=== PATIENT | female | born 1985 | race Caucasian/White ===

== ENCOUNTER 2019-11-22 13:42 | Inpatient (IN) | payer BC, SELFPAY ==
[2019-11-22] VITALS (25 sets, daily range): BP systolic 93–140; BP diastolic 41–91; PULSE 88–133; RESP 12–26; TEMP 36.5–37.1; O2SAT 95–100
--- NOTE | 2019-11-22 14:01 | ED.GENADUL_ITS ---
Discharge Plan Disposition Condition: Good Discharge Details Chief Complaint: POST GRADUATE INTERNSHIP Admit Date/Time: 11/22/19 14:49 Admit Provider: Lawrence Tarango Attending Provider: Lawrence Tarango Primary Care Provider: Lindsey Escudero ED Provider: Haley Kerns Discharge Instructions Activity:: Activity as Tolerated Equipment/Supplies:: No Equipment Needed Diet:: As Tolerated Discharge Orders Discharge Orders: Discharge Order (Routine); Ordered 11/23/19 Ordered By: Lawrence Tarango Discharge Data Discharge Date/Time-TO BE ENTERED AT DEPARTURE: 11/22/19 15:23 Medical Decision Making Luz Garcia is a 34 y/o woman without reported history of major medical problems presenting to the emergency department with abdominal pain that began this morning. On exam patient is uncomfortable but acutely nontoxic. Generalized abdominal tenderness to palpation with guarding. Benign cardiopulmonary exam. Concern for ectopic , hemorrhagic cyst, appendicitis, other. Bedside [id number] ultrasound reveals positive free fluid in Morison's pouch. Concern for ruptured ectopic versus hemorrhagic cyst at this point. Applications Programmer Analyst contacted emergently at 2:01 regarding patient presentation, ultrasound results. Plan for peripheral IVs x2, screening labs, 2 units PRBCs ordered. Patient with good SBP. Dr. Tarango of gynecology at bedside, states he would likely take patient to the OR, patient currently hemodynamically stable, he will await hCG. He requests hold blood transfusion at this time. urine preg pos, cad detailer contacted 2:45 urine prior result relayed, suspect ruptured ectopic. Pt to go to OR. Clinical impression: Ruptured ectopic disposition: [facility] inpatient Medical Records Medical records reviewed: Yes I reviewed the patient's medical records. Lab Data Lab results reviewed: Yes I reviewed the patient's lab results. Labs: 11/22/19 14:42 Urine - Reflex from Ua Urine Culture - Pending Laboratory Tests Range/Units 11/22/19 11/22/19 11/22/19 14:00 14:10 14:10 WBC (4.4-10.8) k/cumm 12.04 H RBC (4.00-5.20) m/cumm 4.25 Hgb (12.0-15.5) g/dL 12.3 Hct (36.0-46.0) % 35.9 L MCV (80-95) fL 84.5 MCH (27.0-33.0) pg 28.9 MCHC (32.0-36.0) g/dL 34.3 RDW (11.7-14.6) % 13.6 Plt Count (130-400) x1000/uL 320 MPV (8.0-11.0) fL 9.6 Immature Gran % % 0.2 Neutrophils % 78.0 Lymphocytes % 14.1 Monocytes % 5.3 Eosinophils % 2.2 Basophils % 0.2 Absolute Neutrophils (1.2-6.7) k/cumm 9.39 H Absolute Lymphocytes (1.2-3.4) k/cumm 1.70 Absolute Monocytes (0.11-0.7) k/cumm 0.64 Absolute Eosinophils (0.0-0.7) k/cumm 0.26 Absolute Basophils (0.0-0.2) k/cumm 0.02 Sodium (136-145) mmol/L 138 Potassium (3.5-5.1) mmol/L 3.3 L Chloride (98-107) mmol/L 102 Carbon Dioxide (21.0-32.0) mmol/L 22.9 Anion Gap (3-11) mmol/L 13.1 H BUN (7-18) mg/dL 6 L Creatinine (0.55-1.02) mg/dL 0.57 Estimated GFR/1.73 m2 (mL/min/1.73m2) >= 60.00 Glucose (74-106) mg/dL 106 Calcium (8.5-10.1) mg/dL 8.3 L Total Bilirubin (0.2-1.0) mg/dL 0.2 AST (15-37) U/L 15 ALT (14-59) U/L 18 Alkaline Phosphatase (46-116) U/L 80 Total Protein (6.4-8.2) g/dL 6.8 Albumin (3.4-5.0) g/dL 3.6 Beta HCG, Quant (1-3) mIU/mL Urine Color (Yellow) Urine Clarity (Clear) Urine pH (5-8) Ur Specific [place] (1.005-1.025) Urine Protein (Negative) mg/dL Urine Ketones (Negative) mg/dL Urine Blood (Negative) Urine Nitrite (Negative) Urine Bilirubin (Negative) Urine Urobilinogen (Up TO 0.2) EU/dL Ur Leukocyte Esterase (Negative) Urine RBC (0-2) HPF Urine WBC (0-5) HPF Ur Epithelial Cells (Negative) HPF Urine Crystals (Negative) HPF Urine Bacteria (Negative) HPF Urine Casts (Negative) LPF Urine Mucus (Negative) Ur Culture Indicated? Urine Glucose (Negative) mg/dL Patient ABO/Rh O Positive Antibody Screen Negative Crossmatch See Detail Range/Units 11/22/19 11/22/19 14:10 14:42 WBC (4.4-10.8) k/cumm RBC (4.00-5.20) m/cumm Hgb (12.0-15.5) g/dL Hct (36.0-46.0) % MCV (80-95) fL MCH (27.0-33.0) pg MCHC (32.0-36.0) g/dL RDW (11.7-14.6) % Plt Count (130-400) x1000/uL MPV (8.0-11.0) fL Immature Gran % % Neutrophils % Lymphocytes % Monocytes % Eosinophils % Basophils % Absolute Neutrophils (1.2-6.7) k/cumm Absolute Lymphocytes (1.2-3.4) k/cumm Absolute Monocytes (0.11-0.7) k/cumm Absolute Eosinophils (0.0-0.7) k/cumm Absolute Basophils (0.0-0.2) k/cumm Sodium (136-145) mmol/L Potassium (3.5-5.1) mmol/L Chloride (98-107) mmol/L Carbon Dioxide (21.0-32.0) mmol/L Anion Gap (3-11) mmol/L BUN (7-18) mg/dL Creatinine (0.55-1.02) mg/dL Estimated GFR/1.73 m2 (mL/min/1.73m2) Glucose (74-106) mg/dL Calcium (8.5-10.1) mg/dL Total Bilirubin (0.2-1.0) mg/dL AST (15-37) U/L ALT (14-59) U/L Alkaline Phosphatase (46-116) U/L Total Protein (6.4-8.2) g/dL Albumin (3.4-5.0) g/dL Beta HCG, Quant (1-3) mIU/mL 6827 H Urine Color (Yellow) Yellow Urine Clarity (Clear) Clear Urine pH (5-8) 6.5 Ur Specific [place] (1.005-1.025) >= 1.030 H Urine Protein (Negative) mg/dL 30 H Urine Ketones (Negative) mg/dL Negative Urine Blood (Negative) Large H Urine Nitrite (Negative) Negative Urine Bilirubin (Negative) Negative Urine Urobilinogen (Up TO 0.2) EU/dL 0.2 Ur Leukocyte Esterase (Negative) Negative Urine RBC (0-2) HPF >50 H Urine WBC (0-5) HPF 0-2 Ur Epithelial Cells (Negative) HPF Moderate Urine Crystals (Negative) HPF Negative Urine Bacteria (Negative) HPF Moderate Urine Casts (Negative) LPF Negative Urine Mucus (Negative) Trace Ur Culture Indicated? Yes Urine Glucose (Negative) mg/dL Negative Patient ABO/Rh Antibody Screen Crossmatch HPI General Mode of arrival: EMS . Date/Time Provider Initiated Documentation: 11/22/19 13:44 . Limitations to Documentation: no limitations . Information obtained by: patient, RN notes reviewed and old records reviewed . HPI Narrative: Luz Garcia is a 34 y/o woman without reported history of major medical problems presenting to the emergency department with abdominal pain. Patient reports that she developed sudden onset right lower quadrant abdominal pain this morning. Patient reports the pain has been gradually getting worse throughout the day. She reports that she has also began to feel lightheaded. She denies any other pain, fever, shortness of breath, cough, numbness, weakness, vomiting, diarrhea. Patient reports that she was in her usual state of health yesterday. Has been eating and drinking as usual. 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 Patient reports that she has had some light spotting for the past few days, and that her period is several days overdue. Patient reports history of appendectomy. Related Data Home Medications Medication Instructions Recorded Confirmed Hair, Skin, Nails with Biotin 2 ea PO DAILY 02/02/18 11/22/19 Probiotic 1 ea PO DAILY 02/02/18 11/22/19 amitriptyline 50 mg PO HS 02/02/18 11/22/19 ascorbic acid (vitamin C) [Vitamin 1,000 mg PO DAILY 02/02/18 11/22/19 C With Yessy Hips] cholecalciferol (vitamin D3) 1,000 units PO DAILY 02/02/18 11/22/19 cyanocobalamin (vitamin B-12) 30,000 mcg IJ DIRECTED 02/02/18 11/22/19 cyanocobalamin (vitamin B-12) 5,000 mcg PO DAILY 02/02/18 11/22/19 [Vitamin B-12] folic acid 400 mcg PO DAILY 02/02/18 11/22/19 venlafaxine 150 mg PO DAILY 02/02/18 11/22/19 ferrous sulfate [Iron (ferrous 325 mg PO DAILY #90 tab 11/23/19 sulfate)] oxycodone-acetaminophen 1 - 2 tab PO Q4H PRN PRN #15 tab 11/23/19 Previous Rx's Medication Instructions Recorded ferrous sulfate [Iron (ferrous 325 mg PO DAILY #90 tab 11/23/19 sulfate)] oxycodone-acetaminophen 1 - 2 tab PO Q4H PRN PRN #15 tab 11/23/19 Allergies Allergy/AdvReac Type Severity Reaction Status Date / Time acetaminophen [From Percocet] Allergy Unverified 11/22/19 14:52 amoxicillin Allergy Unverified 11/22/19 14:52 oxycodone [From Percocet] Allergy Unverified 11/22/19 14:52 Penicillins Allergy Unverified 11/22/19 14:52 tramadol Allergy Unverified 11/22/19 14:52 trazodone Allergy Unverified 11/22/19 14:52 tree nut Allergy Unverified 11/22/19 14:52 zolpidem [From Ambien] Allergy Unverified 11/22/19 14:52 General Stated Complaint: POST GRADUATE INTERNSHIP ALDO: 3 Review of Systems Narrative: Constitutional: denies fevers Eyes: denies eye pain ENT: denies ear pain, dental pain, sore throat Cardiovascular: denies chest pain Respiratory: denies SOB, cough GI: denies omiting, diarrhea, reports abdominal pain : denies flank pain, dysuria MSK: denies back pain, neck pain, arthralgias, myalgias Skin: denies rash Neuro: denies headaches, numbness, weakness PFSH Social History Smoking/Tobacco Use Status: Unknown Do you feel safe at home: Yes Do you feel safe in your relationship?: Yes Exam Narrative Exam Narrative: Constitutional: Somewhat uncomfortable but acutely [id number], pleasant, conversing normally HENT: head atraumatic/normocephalic/normal inspection, mucous membranes moist Eyes: conjunctiva normal, sclera normal, pupils 3mm b/l Neck: no stridor, normal ROM, trachea midline Chest: normal inspection Resp: normal work of breathing, LCTAB Cardio: Borderline tachycardic rate, normal rhythm, no murmur appreciated GI: abdomen soft, generalized tenderness to palpation with guarding, non- distended Back: normal inspection, no rash Skin: warm, dry, normal color, no rash Neuro: alert, not altered, grossly non-focal, normal tone Ext: no edema Psych: normal mood, normal affect, normal behavior Course Vital Signs Vital signs: Vital Signs Temperature 36.5 C 11/22/19 13:44 Pulse 103 H 11/22/19 13:44 Respiratory Rate 18 11/22/19 13:44 Blood Pressure 140/87 11/22/19 13:44 Pulse Oximetry 100 11/22/19 13:44 Temperature 36.5 C 11/22/19 13:44 Temperature Source Skin 11/22/19 13:44 Pulse 103 H 11/22/19 13:44 Respiratory Rate 18 11/22/19 13:44 Blood Pressure 140/87 11/22/19 13:44 Pulse Oximetry 100 11/22/19 13:44 Oxygen Delivery Method Room Air 11/22/19 13:44 Oxygen Flow Rate 0 11/22/19 13:44 Lab/Test Results Lab/Test Results: Laboratory Tests Range/Units 11/22/19 13:55 Crossmatch See Detail Critical Care Time Critical Care Time Total Critical Care Time: 35 Attestation: I have spent greater than 35 minutes of critical care time with this critically ill patient, including frequent reassessments and discussions with family and consultants.
[2019-11-22 14:38] LABS: Abs Immature Grans 0.02 k/cumm (0.0-0.09); Absolute Basophil Count 0.02 k/cumm (0.0-0.2); Absolute Monocyte Count 0.64 k/cumm (0.11-0.7); Absolute Neutrophil Count 9.39 k/cumm (1.2-6.7); Basophils % 0.2; Eosinophils % 2.2; HCT 35.9 % (36.0-46.0); HGB 12.3 g/dL (12.0-15.5); Immature Grans % 0.2 %; Lymphocytes % 14.1; Mean Corp. HGB Concentration 34.3 g/dL (32.0-36.0); Mean Corpuscular Hemoglobin 28.9 pg (27.0-33.0); Mean Corpuscular Volume 84.5 fL (80-95); Mean Platelet Volume 9.6 fL (8.0-11.0); Monocytes % 5.3; Platelet Count 320 x1000/uL (130-400); RBC 4.25 m/cumm (4.00-5.20); RBC Distribution Width 13.6 % (11.7-14.6); White Blood Cell Count 12.04 k/cumm (4.4-10.8)
[2019-11-22] MEDS: Normal Saline 1,000 ML 1000 ML IV (14:39)
[2019-11-22 14:41] LABS: Absolute Eosinophil Count 0.26 k/cumm (0.0-0.7)
[2019-11-22 14:42] LABS: ALT 18 U/L (14-59); AST 15 U/L (15-37); Albumin 3.6 g/dL (3.4-5.0); Alkaline Phosphatase 80 U/L (46-116); Anion Gap 13.1 mmol/L (3-11); BUN 6 mg/dL (7-18); Bilirubin, Total 0.2 mg/dL (0.2-1.0); CO2 22.9 mmol/L (21.0-32.0); CREATININE 0.57 mg/dL (0.55-1.02); Calcium 8.3 mg/dL (8.5-10.1); Chloride 102 mmol/L (98-107); Glucose 106 mg/dL (74-106); Potassium 3.3 mmol/L (3.5-5.1); Sodium 138 mmol/L (136-145); Total Protein 6.8 g/dL (6.4-8.2)
--- NOTE | 2019-11-22 14:42 | W.GYNCONSULT ---
Date of service: 11/22/19 Time of Service: 14:42 Assessment and Plan Assessment and plan (1) Abdominal pain affecting : Status: Acute Assessment and plan: Presents to the emergency room with acute onset of pain, blood in the abdomen and up positive urine test. The quantitative hCG is pending at this point time. There is a couple possibilities, these include an ectopic I did talk about the fact that if there is a rupture tube I would do a salpingectomy. If I could do so we will do a salpingostomy and go ahead and remove the ectopic and leave the tube. We would then need to go ahead and follow serial hCGs and is always a chance that we would have to give her methotrexate if this did not reabsorb on its own. Carefully reviewed the risk of the surgery including bleeding, infection, damage of the tissue such as bowel, bladder, blood vessels, potential laparotomy incision discussed with her. This may also be a hemorrhagic cyst of the ovary is causing issues for which case we will go ahead and cauterize the cyst and remove the blood. She understands she will shoulder pain after the surgery feel she is good understanding risk of the procedure and she is been n.p.o. other than some coffee this morning. History of Present Illness History of Present Illness Chief Complaint: Patient is a 34-year-old 5 para 1 with LMP 3 weeks ago reports the, Review of Systems Constitutional Constitutional: Denies chills, Denies excessive sweating, Denies fever(s), Denies frequent falls, Denies increased appetite, Denies lethargy, Denies night sweats, Denies poor appetite, Denies stops breathing during sleep, Denies weakness, Denies weight loss and Denies other Neurologic Neurologic: Denies frequent falls and Denies weakness Endocrine Endocrine: Denies excessive sweating [facility] Social History Do you feel safe at home: Yes Do you feel safe in your relationship?: Yes Exam Const General: cooperative, healthy appearing, acute distress and anxious Nutritional Appearance: overweight Orientation: alert and oriented x3 Chest Chest: normal inspection of the chest Resp Effort & Inspection: normal respiratory effort and able to speak in complete sentences Auscultation: clear to auscultation bilaterally Cardio Rate: regular rate Rhythm: regular rhythm GI Inspection: normal to inspection and distended Palpation: guarding and tender Other: The patient definitely has cervical motion tenderness, uterus is anteverted anteflexed and very tender. Both adnexa are tender. Did do a bedside endovaginal ultrasound which shows an empty uterus with fairly thin endometrial lining right adnexa visible left adnexa not seen. There is a small amount of fluid between the liver and the kidney on the right side. Results Last Vital Signs Temp 97.7 F 11/22/19 13:44 Pulse 103 H 11/22/19 13:44 Resp 20 11/22/19 14:38 BP 140/87 11/22/19 13:44 Pulse Ox 97 11/22/19 14:38 Labs Result diagrams: 11/22/19 14:10 11/22/19 14:10 Labs: Laboratory Results - last 24 hr 11/22/19 11/22/19 14:00 14:10 WBC 12.04 H RBC 4.25 Hgb 12.3 Hct 35.9 L MCV 84.5 MCH 28.9 MCHC 34.3 RDW 13.6 Plt Count 320 MPV 9.6 Immature Gran % 0.2 Neutrophils % 78.0 Lymphocytes % 14.1 Monocytes % 5.3 Eosinophils % 2.2 Basophils % 0.2 Absolute Neutrophils 9.39 H Absolute Lymphocytes 1.70 Absolute Monocytes 0.64 Absolute Eosinophils 0.26 Absolute Basophils 0.02 Crossmatch See Detail
[2019-11-22] MEDS: fentaNYL 100 MCG/2 ML VIAL 50 MCG IVP (14:49)
[2019-11-22 15:07] LABS: HCG Quant, Pregnancy 6827 mIU/mL (1-3)
[2019-11-22 15:22] LABS: Bilirubin Negative (Negative); Blood Large (Negative); Clarity Clear (Clear); Glucose Negative (Negative); Ketones Negative (Negative); Leukocyte Esterase Negative (Negative); Nitrite Negative (Negative); Specific Gravity >= 1.030 (1.005-1.025); Urobilinogen 0.2 EU/dL (Up TO 0.2); pH 6.5 (5-8)
[2019-11-22 15:24] LABS: Bacteria Moderate HPF (Negative); Crystals Negative HPF (Negative); Epithelial Cells Moderate HPF (Negative); RBC >50 HPF (0-2); WBC 0-2 HPF (0-5)
[2019-11-22 15:25] LABS: C & S Indicated? Yes; Casts Negative LPF (Negative); Mucus Trace (Negative)
[2019-11-22] MEDS: ELECTROLYTE-R SOLUTION 1,000 ML 100 ML IV (15:30)
[2019-11-22] MEDS: Lactated Ringers 1,000 ML 100 ML IV (15:30)
--- NOTE | 2019-11-22 16:23 | FALL_PTH ---
PATIENT: Luz Garcia LOC: U#:[id number] AGE/SX: 34/F ROOM: 231 RE11/22/[address]: Lawrence Tarango MD : [id number] BED: A DIS: 11/23/2019 SPEC #: [id number] RECD: 11/22/19 18:52 STATUS: PIPE REQ #: [id number] SINGH: 11/22/19 16:[address]: Lawrence Tarango DEPT: Surgical Specimen RECD BY: María Elena Naidu ENTERED: 11/22/19 18:53 SP TYPE: Fall OTHR DR: Lindsey Escudero Tissues: 1 - FALLOPIAN TUBE (ECTOPIC) Procedures: GROSS AND MICRO LEVEL 4 Comments: [id number]
[2019-11-22] MEDS: fentaNYL 100 MCG/2 ML VIAL IVP (17:32)
[2019-11-22] MEDS: Lactated Ringers 1,000 ML 500 ML IV (17:37)
[2019-11-22] MEDS: Lactated Ringers 1,000 ML 125 ML IV (18:04)
[2019-11-22 19:00] LABS: HCT 29.4 % (36.0-46.0); HGB 9.8 g/dL (12.0-15.5); Mean Corp. HGB Concentration 33.3 g/dL (32.0-36.0); Mean Corpuscular Hemoglobin 28.5 pg (27.0-33.0); Mean Corpuscular Volume 85.5 fL (80-95); Mean Platelet Volume 9.3 fL (8.0-11.0); Platelet Count 278 x1000/uL (130-400); RBC 3.44 m/cumm (4.00-5.20); RBC Distribution Width 13.6 % (11.7-14.6)
[2019-11-22] MEDS: Amitriptyline 50 MG TAB PO (20:08)
[2019-11-22] MEDS: oxyCODONE 5 mg/Acetaminophen 325 mg TAB PO (20:08)
[2019-11-22] MEDS: Docusate Sodium 100 MG CAP PO (20:08)
[2019-11-22] MEDS: Nicotine 21 MG/24 HR PATCH TD (21:00)
[2019-11-22] MEDS: Ketorolac 30 MG/ML VIAL IVP (22:53)
[2019-11-23] MEDS: oxyCODONE 5 mg/Acetaminophen 325 mg TAB PO ×3 (00:11→10:35)
[2019-11-23 00:12] VITALS: BP 103/65; PULSE 89; RESP 18; TEMP 36.5; O2SAT 96
[2019-11-23] MEDS: Lactated Ringers 1,000 ML 125 ML IV ×2 (00:53→08:22)
[2019-11-23 04:20] VITALS: BP 101/66; PULSE 88; RESP 18; TEMP 37; O2SAT 98
--- NOTE | 2019-11-23 05:53 | ROE_ITS ---
REPORT OF OPERATIVE PROCEDURE DATE OF PROCEDURE November 22, 2019 PREOPERATIVE DIAGNOSIS Possible ectopic . POSTOPERATIVE DIAGNOSIS Right ruptured ectopic . SURGEON Lawrence Tarango M.D. ANESTHESIA General. DESCRIPTION OF PROCEDURE The patient was brought to the OR. She was placed in the dorsal lithotomy position. She was prepped and draped in the usual fashion. Timeout was done, everybody agreed to the procedure. She received 2 grams of Ancef. An infraumbilical incision was made, introducing the 5-mm OptiView. Accessory ports were placed, placed 5-mm ports lateral to the rectus muscle on either side and placed a 10-mm port in the suprapubic area. Inspection revealed a normal uterus, left fallopian tube and ovaries. There was a large amount of blood clot in the cul-de-sac and covering the right fallopian tube and right ovary. The blood clot was then suctioned out, which revealed an actively bleeding, ruptured ectopic on the right side. I did go ahead and do a salpingectomy coming across the mesosalpinx and coming across the utero-ovarian ligament with the LigaSure. Also came across the proximal portion of the tube, was able to free the ectopic up. This was then placed in the 10-mm specimen bag and was removed without any difficulty. There were adhesions between the omentum, the anterior abdominal wall and the umbilical area, and these were taken down using the LigaSure. I went ahead and placed the patient in reverse Trendelenburg and ended up draining out a total of 800 cc of blood that was in the abdomen, especially in the right upper quadrant and in the cul-de-sac. Once the blood was removed, there was no active bleeding, Instruments removed and gas expelled. The incision was closed with #4-0 Monocryl without any difficulty. No complications noted. The patient was brought to the Recovery Room in excellent condition.
[2019-11-23 07:45] VITALS: BP 117/71; PULSE 104; RESP 20; TEMP 37.5; O2SAT 99
[2019-11-23] MEDS: Docusate Sodium 100 MG CAP PO (08:18)
[2019-11-23] MEDS: Normal Saline Flush 10 ML SYR IVP (08:18)
[2019-11-23] MEDS: Ketorolac 30 MG/ML VIAL IVP (08:19)
--- NOTE | 2019-11-23 08:52 | PDOC.CMIN ---
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 CODE STATUS:: Full Code
--- NOTE | 2019-11-23 09:05 | W.PM.DS.N ---
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 ECTOPIC Admit Date/Time: 11/22/19 14:49 Admit Provider: Lawrence Tarango Attending Provider: Lawrence Tarango Primary Care Provider: Lindsey Escudero ED Provider: Haley Kerns Home Meds and New Rx's Prescriptions: No Action venlafaxine 75 MG tablet 150 mg PO DAILY RF: 0 ascorbic acid (vitamin C) [Vitamin C With Yessy Hips] 1,000 MG tablet extended release 1,000 mg PO DAILY RF: 0 cyanocobalamin (vitamin B-12) [Vitamin B-12] 1,000 MCG tablet 5,000 mcg PO DAILY RF: 0 folic acid 400 MCG tablet 400 mcg PO DAILY RF: 0 amitriptyline 25 MG tablet 50 mg PO HS RF: 0 cyanocobalamin (vitamin B-12) 30,000 MCG/30 ML solution 30,000 mcg IJ DIRECTED RF: 0 cholecalciferol (vitamin D3) 1,000 UNITS tablet 1,000 units PO DAILY RF: 0 Probiotic 1 EACH capsule 1 ea PO DAILY RF: 0 Hair, Skin, Nails with Biotin 1 EACH tablet,chewable 2 ea PO DAILY RF: 0 DS: Summary Summary Time spent discussing smoking cessation with patient: 3 to 10 minutes Status at Discharge Functional status at discharge: independent ambulation Overall status at discharge: patient is back to baseline Mental Status: mental status grossly normal Speech and Movement: speech and movement normal Mood: congruent mood Affect: normal affect Time Spent with Patient providing and/or coordinating discharge services: Less than 30 minutes Specific discharge activities: Carefully reviewed discharge instructions, will send her home on iron and Percocet. She understands of nothing in the vagina for the next week, and no lifting more than 10 to 15 pounds for the next week. Any fevers or chills she will contact me. Quality: VTE Deep Vein Thrombosis/Pulmonary Embolism Present on Admission: No Exam Narrative Exam Narrative: The patient is alert, no acute distress. Abdomen is soft nontender no hepatosplenomegaly. Incisions are healing well without any evidence of drainage, erythema, or induration. She has been ambulating throughout the siddiqi, tolerating a general diet and has good urine output. Psych Mental Status: mental status grossly normal Speech and Movement: speech and movement normal Mood: congruent mood Affect: normal affect DS: Data Vitals/I&O Vitals and I&O: Vital Signs Temperature 99.5 F 11/23/19 07:45 Temperature Source Tympanic 11/23/19 07:45 Pulse 104 H 11/23/19 07:45 Pulse Rhythm Regular 11/23/19 08:36 Pulse 109 H 11/22/19 15:10 Respiratory Rate 20 11/23/19 07:45 Respiratory Effort Non-Labored 11/23/19 08:36 Respiratory Depth Normal 11/23/19 08:36 Respiratory Pattern Normal 11/23/19 08:36 Blood Pressure 117/71 11/23/19 07:45 Blood Pressure Mean 98 11/22/19 15:01 Pulse Oximetry 99 11/23/19 07:45 Respiratory End-tidal CO2 39 11/22/19 17:04 Oxygen Delivery Method Room Air 11/23/19 07:45 Oxygen Flow Rate 0 11/23/19 07:45 Pain Level 5 11/23/19 08:19 Intake & Output 11/22/19 11/22/19 11/23/19 11:59 23:59 11:59 Intake Total 2900 / 2900 1787.500 / 1787.500 Output Total 1350 / 1350 1150 / 1150 Balance 1550 / 1550 637.500 / 637.500 Weight 140 lb 0.002 oz Intake: IV 2900 / 2900 1787.500 / 1787.500 Output: Urine 750 / 750 1150 / 1150 Estimated Blood Loss 600 / 600 Other: Urine Color Pale Yellow Yellow Urine Appearance Clear Clear Emesis Description None Voiding Methods Toilet Data Completed and Pending Labs on day of discharge: Labs from last 24 hours 11/22/19 11/22/19 11/22/19 18:45 14:42 14:10 WBC 10.10 RBC 3.44 L Hgb 9.8 L D Hct 29.4 L MCV 85.5 MCH 28.5 MCHC 33.3 RDW 13.6 Plt Count 278 MPV 9.3 Immature Gran % Neutrophils % Lymphocytes % Monocytes % Eosinophils % Basophils % Absolute Neutrophils Absolute Lymphocytes Absolute Monocytes Absolute Eosinophils Absolute Basophils Sodium Potassium Chloride Carbon Dioxide Anion Gap BUN Creatinine Estimated GFR/1.73 m2 Glucose Calcium Total Bilirubin AST ALT Alkaline Phosphatase Total Protein Albumin Beta HCG, Quant 6827 H Urine Color Yellow Urine Clarity Clear Urine pH 6.[address] [place] >= 1.030 H Urine Protein 30 H Urine Ketones Negative Urine Blood Large H Urine Nitrite Negative Urine Bilirubin Negative Urine Urobilinogen 0.2 Ur Leukocyte Esterase Negative Urine RBC >50 H Urine WBC 0-2 Ur Epithelial Cells Moderate Urine Crystals Negative Urine Bacteria Moderate Urine Casts Negative Urine Mucus Trace Ur Culture Indicated? Yes Urine Glucose Negative Patient ABO/Rh Antibody Screen Crossmatch 11/22/19 11/22/19 11/22/19 14:10 14:10 14:00 WBC 12.04 H RBC 4.25 Hgb 12.3 Hct 35.9 L MCV 84.5 MCH 28.9 MCHC 34.3 RDW 13.6 Plt Count 320 MPV 9.6 Immature Gran % 0.2 Neutrophils % 78.0 Lymphocytes % 14.1 Monocytes % 5.3 Eosinophils % 2.2 Basophils % 0.2 Absolute Neutrophils 9.39 H Absolute Lymphocytes 1.70 Absolute Monocytes 0.64 Absolute Eosinophils 0.26 Absolute Basophils 0.02 Sodium 138 Potassium 3.3 L Chloride 102 Carbon Dioxide 22.9 Anion Gap 13.1 H BUN 6 L Creatinine 0.57 Estimated GFR/1.73 m2 >= 60.00 Glucose 106 Calcium 8.3 L Total Bilirubin 0.2 AST 15 ALT 18 Alkaline Phosphatase 80 Total Protein 6.8 Albumin 3.6 Beta HCG, Quant Urine Color Urine Clarity Urine pH Ur Specific [place] Urine Protein Urine Ketones Urine Blood Urine Nitrite Urine Bilirubin Urine Urobilinogen Ur Leukocyte Esterase Urine RBC Urine WBC Ur Epithelial Cells Urine Crystals Urine Bacteria Urine Casts Urine Mucus Ur Culture Indicated? Urine Glucose Patient ABO/Rh O Positive Antibody Screen Negative Crossmatch See Detail 11/22/19 14:42 Urine - Reflex from Urine Culture - Pending Preliminary micro results at discharge 11/22/19 14:42 Urine Culture - Pending Urine - Reflex from [facility] Social History Smoking/Tobacco Use Status: Unknown Do you feel safe at home: Yes Do you feel safe in your relationship?: Yes
--- NOTE | 2019-11-23 09:14 | W.PM.DS.N ---
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 Had uneventful postop recovery will be discharged home today. Home Meds and New Rx's Prescriptions: New oxycodone-acetaminophen 5-325 mg Tablet 1 - 2 tab PO Q4H PRN PRNQty: 15 RF: 0 ferrous sulfate [Iron (ferrous sulfate)] 325 mg (65 mg iron) tablet 325 mg PO DAILY Qty: 90 RF: 0 Continued venlafaxine 75 MG tablet 150 mg PO DAILY RF: 0 ascorbic acid (vitamin C) [Vitamin C With Yessy Hips] 1,000 MG tablet extended release 1,000 mg PO DAILY RF: 0 cyanocobalamin (vitamin B-12) [Vitamin B-12] 1,000 MCG tablet 5,000 mcg PO DAILY RF: 0 folic acid 400 MCG tablet 400 mcg PO DAILY RF: 0 amitriptyline 25 MG tablet 50 mg PO HS RF: 0 cyanocobalamin (vitamin B-12) 30,000 MCG/30 ML solution 30,000 mcg IJ DIRECTED RF: 0 cholecalciferol (vitamin D3) 1,000 UNITS tablet 1,000 units PO DAILY RF: 0 Probiotic 1 EACH capsule 1 ea PO DAILY RF: 0 Hair, Skin, Nails with Biotin 1 EACH tablet,chewable 2 ea PO DAILY RF: 0 Discharge Instructions Instructions: Salpingectomy (DC) Stand Alone Forms: Nursing Discharge Form Activity:: Activity as Tolerated Equipment/Supplies:: No Equipment Needed Diet:: As Tolerated Discharge Orders Discharge Orders: Discharge Order (Routine); Ordered 11/23/19 Ordered By: Lawrence Tarango DS: Summary Status at Discharge Functional status at discharge: independent ambulation Overall status at discharge: patient is back to baseline Mental Status: mental status grossly normal Speech and Movement: speech and movement normal Mood: congruent mood Affect: normal affect Quality: VTE Deep Vein Thrombosis/Pulmonary Embolism Present on Admission: No Exam Psych Mental Status: mental status grossly normal Speech and Movement: speech and movement normal Mood: congruent mood Affect: normal affect DS: Data Vitals/I&O Vitals and I&O: Vital Signs Temperature 99.5 F 11/23/19 07:45 Temperature Source Tympanic 11/23/19 07:45 Pulse 104 H 11/23/19 07:45 Pulse Rhythm Regular 11/23/19 08:36 Pulse 109 H 11/22/19 15:10 Respiratory Rate 20 11/23/19 07:45 Respiratory Effort Non-Labored 11/23/19 08:36 Respiratory Depth Normal 11/23/19 08:36 Respiratory Pattern Normal 11/23/19 08:36 Blood Pressure 117/71 11/23/19 07:45 Blood Pressure Mean 98 11/22/19 15:01 Pulse Oximetry 99 11/23/19 07:45 Respiratory End-tidal CO2 39 11/22/19 17:04 Oxygen Delivery Method Room Air 11/23/19 07:45 Oxygen Flow Rate 0 11/23/19 07:45 Pain Level 5 11/23/19 08:19 Intake & Output 11/22/19 11/22/19 11/23/19 11:59 23:59 11:59 Intake Total 2900 / 2900 1787.500 / 1787.500 Output Total 1350 / 1350 1150 / 1150 Balance 1550 / 1550 637.500 / 637.500 Weight 140 lb 0.002 oz Intake: IV 2900 / 2900 1787.500 / 1787.500 Output: Urine 750 / 750 1150 / 1150 Estimated Blood Loss 600 / 600 Other: Urine Color Pale Yellow Yellow Urine Appearance Clear Clear Emesis Description None Voiding Methods Toilet Data Completed and Pending Labs on day of discharge: Labs from last 24 hours 11/22/19 11/22/19 11/22/19 18:45 14:42 14:10 WBC 10.10 RBC 3.44 L Hgb 9.8 L D Hct 29.4 L MCV 85.5 MCH 28.5 MCHC 33.3 RDW 13.6 Plt Count 278 MPV 9.3 Immature Gran % Neutrophils % Lymphocytes % Monocytes % Eosinophils % Basophils % Absolute Neutrophils Absolute Lymphocytes Absolute Monocytes Absolute Eosinophils Absolute Basophils Sodium Potassium Chloride Carbon Dioxide Anion Gap BUN Creatinine Estimated GFR/1.73 m2 Glucose Calcium Total Bilirubin AST ALT Alkaline Phosphatase Total Protein Albumin Beta HCG, Quant 6827 H Urine Color Yellow Urine Clarity Clear Urine pH 6.5 Ur Specific [place] >= 1.030 H Urine Protein 30 H Urine Ketones Negative Urine Blood Large H Urine Nitrite Negative Urine Bilirubin Negative Urine Urobilinogen 0.2 Ur Leukocyte Esterase Negative Urine RBC >50 H Urine WBC 0-2 Ur Epithelial Cells Moderate Urine Crystals Negative Urine Bacteria Moderate Urine Casts Negative Urine Mucus Trace Ur Culture Indicated? Yes Urine Glucose Negative Patient ABO/Rh Antibody Screen Crossmatch 11/22/19 11/22/19 11/22/19 14:10 14:10 14:00 WBC 12.04 H RBC 4.25 Hgb 12.3 Hct 35.9 L MCV 84.5 MCH 28.9 MCHC 34.3 RDW 13.6 Plt Count 320 MPV 9.6 Immature Gran % 0.2 Neutrophils % 78.0 Lymphocytes % 14.1 Monocytes % 5.3 Eosinophils % 2.2 Basophils % 0.2 Absolute Neutrophils 9.39 H Absolute Lymphocytes 1.70 Absolute Monocytes 0.64 Absolute Eosinophils 0.26 Absolute Basophils 0.02 Sodium 138 Potassium 3.3 L Chloride 102 Carbon Dioxide 22.9 Anion Gap 13.1 H BUN 6 L Creatinine 0.57 Estimated GFR/1.73 m2 >= 60.00 Glucose 106 Calcium 8.3 L Total Bilirubin 0.2 AST 15 ALT 18 Alkaline Phosphatase 80 Total Protein 6.8 Albumin 3.6 Beta HCG, Quant Urine Color Urine Clarity Urine pH Ur Specific [place] Urine Protein Urine Ketones Urine Blood Urine Nitrite Urine Bilirubin Urine Urobilinogen Ur Leukocyte Esterase Urine RBC Urine WBC Ur Epithelial Cells Urine Crystals Urine Bacteria Urine Casts Urine Mucus Ur Culture Indicated? Urine Glucose Patient ABO/Rh O Positive Antibody Screen Negative Crossmatch See Detail 11/22/19 14:42 Urine - Reflex from Urine Culture - Pending Preliminary micro results at discharge 11/22/19 14:42 Urine Culture - Pending Urine - Reflex from [facility] Social History Smoking/Tobacco Use Status: Unknown Do you feel safe at home: Yes Do you feel safe in your relationship?: Yes
== END 2019-11-23 10:38 | disposition home or self-care (01) | DRG 819 ==
LOC: ER 17:56 → SUR 17:56 → MS 17:58
PROVIDERS: Admitting Provider Obstetrics & Gynecology; Emergency Provider Student in an Organized Health Care Education/Training Program; PCP Nurse Practitioner Family; Visit Provider Obstetrics & Gynecology
PROC: 10T24ZZ Resection of Products of Conception, Ectopic, Percutaneous Endoscopic Approach (ICD-10-PCS; CPT 58661; principal; 2019-11-22 15:15)
DX: O00.101 Right tubal pregnancy without intrauterine pregnancy (principal); F17.210 Nicotine dependence, cigarettes, uncomplicated
CPT/HCPCS: 59120; 36415; 80053; 81025; 85027; 86850; 86900; 86901; 86920; 88305; 96361; 96374; 99238; 99253; 99285; 81003; 81015; 84702; 85025; 87086; J0131; J0690; J1100; J1885; J2001; J2250; J2405; J2704; J3010

== ENCOUNTER 2019-11-30 13:40 | Outpatient (CLI) | payer BC, SELFPAY ==
[2019-11-30 14:03] LABS: HCT 35.7 % (36.0-46.0); HGB 12.2 g/dL (12.0-15.5); Mean Corp. HGB Concentration 34.2 g/dL (32.0-36.0); Mean Corpuscular Hemoglobin 29.4 pg (27.0-33.0); Mean Platelet Volume 8.9 fL (8.0-11.0); Platelet Count 492 x1000/uL (130-400); RBC 4.15 m/cumm (4.00-5.20); RBC Distribution Width 14.3 % (11.7-14.6); White Blood Cell Count 6.79 k/cumm (4.4-10.8)
[2019-11-30 15:18] LABS: HCG Quant, Pregnancy 124 mIU/mL (1-3); TSH (W/Ref FT4) 1.58 uIU/mL (0.36-3.74)
== END 2019-11-30 14:00 ==
PROVIDERS: PCP Nurse Practitioner Family; Visit Provider Obstetrics & Gynecology Gynecology
DX: Z87.59 Personal history of other complications of pregnancy, childbirth and the puerperium (principal)
CPT/HCPCS: 36415; 85027; 84443; 84702

== ENCOUNTER 2024-10-20 11:24 | Emergency (ER) | payer OTHER, SELFPAY ==
[2024-10-20 11:27] VITALS: BP 143/61; PULSE 113; RESP 18; TEMP 36.6; O2SAT 97
[2024-10-20 11:34] VITALS: BP 143/61; PULSE 113; RESP 18; TEMP 36.6; O2SAT 97
[2024-10-20 11:35] VITALS: RESP 18
--- OUTSIDE RECORDS SUMMARY | 2024-10-20 11:45 | XMS_ITS | Continuity of Care Document ---
Author Organization [facility] Address [address] [place] [id number] Care Team Providers Care Courier Driver Name Role Phone FLORENTIN MANZANARES APRN Primary Care Physician Encounter [facility] FIN NBR [id number] Date(s): 08/28/24 - 08/28/[address] [address] [place] Encounter Diagnosis Transient vision disturbance, right(Discharge Diagnosis) - 08/28/24 Chronic headache(Discharge Diagnosis) - 08/28/24 Other chronic pain(Discharge Diagnosis) - 08/28/24 Generalized anxiety disorder with panic attacks(Discharge Diagnosis) - 08/28/24 Panic disorder [episodic paroxysmal anxiety](Discharge Diagnosis) - 08/28/24 Discharge Disposition: Home f/u External Provider Attending Physician: Fareed Diaz DO Admitting Physician: Fareed Diaz DO Allergies, Adverse Reactions, Alerts Substance Criticality Severity Reaction Reaction Severity Status clindamycin Unable to assess criticality Unknown Anaphylaxis Vomiting Active penicillins High criticality Severe A ctive Zolpidem Tartrate 1 Unable to assess criticality Unknown Parasomnia Active traZODone High criticality Severe Act keke traMADol High criticality Severe Act keke 1sleep eating, sleep posturing Assessment and Plan Extracted from: Title:ED Provider Note Author:Fareed Diaz DO Date:08/28/24 Assessment/Plan 1.??Transient vision disturbance, right??H53.9 2.??Chronic headache??R51.9 3.??Generalized anxiety disorder with panic attacks??F41.1 Other chronic pain??G89.29 Panic disorder [episodic paroxysmal anxiety]??F41.0 Orders: Discharge Patient, 08/28/24 13:22:00 EST, Home Independently Peripheral IV Insertion, 08/28/24 11:55:00 EST Vital Signs, 08/28/24 11:55:00 EST, Once, Stop date 08/28/24 11:55:00 EST, Vital signs per ED Nursing Standard of Care Patient Education General Headache Without Cause Follow Up With When Contact Information EVELYN FELDER MD, STEFAN VALERA [address] [place] [address]- ?? Additional Instructions: Thank you for allowing us to evaluate you in the emergency department today.?? You presented to the emergency department with headache.?? Fortunately your workup in the emergency department was unremarkable and reassuring.?? Here are some instructions to follow-up on emergency department discharge: ?? 1.?? Medications. NSAIDs such as ibuprofen help decrease swelling, pain and if present fever.?? You??may take 800 mg every 6 hours but understand you should take this with food as it can cause GI bleeding or kidney problems in certain populations of people.?? Tylenol (acetaminophen) 1000 mg every 4 hours not to exceed 4000 mg in 24 hours. ?? 2.?? Alternative measures.?? Apply heat or ice on the headache area.?? For an ice pack you can also put crushed ice in a plastic bag and cover the bag with a towel before you apply to your skin.?? Ice and heat both help decrease pain, and heat also helps decrease muscle spasms.?? Apply heat for 20 to 30 minutes every 2 hours.?? Apply ice for 15 to 20 minutes every hour.?? Apply heat or ice for as long as for many days for relief that you deem necessary.?? Relax your muscles by lying in a comfortable position and closing her eyes.?? Relax your muscles slowly and cautiously.?? Starting her toes and work all the way up your body.?? There are iPhone applications that can help you with this type of meditation. ?? 3.?? Preventing an acute headache.?? Avoid anything that can trigger an acute headache.?? This includes smoking, alcohol.?? Exercise can reduce tension and help with headache pain.?? Aim for 30 minutes of physical activity on most days of the week.?? Eat a variety of healthy foods including fruits, vegetables, low-fat dairy products, lean meats, fish, whole grains, cooked beans. ?? 4.?? Follow-up.?? Keep your appointment as scheduled with Dr. Stefan Child.??Return to the emergency department earlier if you have continued severe pain, focal numbness/weakness in 1 side of your face or body or if you are forgetful/confused or having trouble speaking. ? Future Scheduled Tests Radiology* MG Mammo Screening Bilateral 06/30/24 Medications amitriptyline 25 mg oral tablet 0 Refill(s) Start Date: 07/29/23 Status: Ordered azithromycin 250 mg oral tablet 0 Refill(s) Start Date: 07/29/23 Status: Ordered cephalexin 500 mg oral capsule 0 Refill(s) Start Date: 07/29/23 Status: Ordered citalopram 40 mg oral tablet 40 mg = 1 tab, Oral, Daily, # 30 tab, 0 Refill(s) Start Date: 07/29/23 Status: Ordered erythromycin 0.5% ophthalmic ointment 0 Refill(s) Start Date: 07/29/23 Status: Ordered ketorolac 10 mg oral tablet 10 mg = 1 tab, Oral, every 6 hr, PRN as needed for pain, not to exceed 40 mg/day and 5 days duration for all dose forms, # 12 cap, 0 Refill(s), Pharmacy: [facility], 162, cm, 11/12/23 8:16:00 EST, Height, 69, kg, 11/12/23 8:19:00 EST, Weight Dosing Start Date: 11/12/23 Status: Ordered neomycin/polymyxin B/dexamethasone 3.5 mg-10,000 units-1 mg/mL ophthalmic suspension 1 drops, Eye-Both, every 4 hr, # 5 mL, 0 Refill(s) Start Date: 07/29/23 Status: Ordered ondansetron 4 mg oral tablet, disintegrating 4 mg = 1 tab, Oral, every 6 hr, PRN as needed for nausea/vomiting, # 16 tab, 0 Refill(s), Pharmacy:[facility], 162, cm, 11/12/23 8:16:00 EST, Height, 69, kg, 11/12/23 8:19:00 EST, WeightDosing Start Date: 11/12/23 Status: Ordered predniSONE 20 mg oral tablet 0 Refill(s) Start Date: 07/29/23 Status: Ordered Problem List Condition Confirmation Course Effective Dates Status Health St atus Informant Alopecia areata Confirmed Active Anorexia nervosa Confirmed Active Celiac sprue Confirmed Active DJD (degenerative joint disease), cervical Confirmed Active Headache, common migraine, with status migrainosus Confirmed Active Tobacco use Confirmed Active Major depressive disorder, single episode, mild Confirmed Active Asthma, mild persistent Confirmed Active Panic attack Confirmed Active Peripheral neuropathy Confirmed Active Pernicious anemia Confirmed Active Pica Confirmed Active Poliosis Confirmed Active Spinal stenosis of cervical region Confirmed Active Results Laboratory List Name Date CBC w/ Diff 08/28/24 Comprehensive Metabolic Panel 08/28/24 Test Serum Qual 08/28/24 Sedimentation Rate (ESR) (ESR) 08/28/24 Drug Screen Urine 08/28/24 Urinalysis with Micro if Indicated and C ulture if Indicated 08/28/24 Automated Diff 08/28/24 Most recent to oldest [Reference Range]: 1 Estimated Creatinine Clearance 142.49 mL /min 1 (08/28/24 1:08 PM) WBC [4.8-10.8 K/mcL] 5.9 K/mcL (08/28/24 12:38 PM) RBC [4.20-5.40 Million/mcL] 4.82 Million /mcL (08/28/24 12:38 PM) Neutro Auto [42.2-75.2 %] 56.4 % (08/28/24 12:38 PM) Lymph Auto [20.5-51.1 %] 28.9 % (08/28/24 12:38 PM) Ripley Auto [1.7-9.3 %] 8.7 % (08/28/24 12:38 PM) Basophil Auto [0.0-0.8 %] 1.5 % *HI* (08/28/24 12:38 PM) BUN [7-25 mg/dL] 6 mg/dL *LOW* (08/28/24 12:38 PM) U Amph Scrn [Negative] Negative 2 (08/28/24 12:23 PM) UA Color [Yellow] Yellow (08/28/24: PM) Glucose Level [70-109 mg/dL] 91 mg/dL (08/28/24 12:38 PM) Potassium Level [3.5-5.1 mmol/L] 4.0 mmo l/L (08/28/24 12:38 PM) Baso Absolute [0.0-0.2 K/mcL] 0.1 K/mcL (08/28/24 12:38 PM) U Benzodia Scrn [Negative] Negative (08/28/24: PM) MCV [81.0-99.0 fL] 89.4 fL (08/28/24 12:38 PM) UA Urobilinogen [0.2] 0.2 (08/28/24: PM) UA Bili [Negative] Negative (08/28/24 12: PM) UA Ketones [Negative] Negative (08/28/24 12:23 PM) AST [13-39 IntlUnit/L] 13 IntlUnit/L (08/28/24:38 PM) ALT [7-52 IntlUnit/L] 10 IntlUnit/L (08/28/24 12:38 PM) MCHC [32.0-37.0 g/dL] 35.8 g/dL (08/28/24 12:38 PM) Osmolality [275-295 mOsm/kg] 269 mOsm/kg *LOW* (08/28/24 12:38 PM) Sodium Level [136-145 mmol/L] 136 mmol/L (08/28/24 12:38 PM) UA Leuk Est [Negative] Negative (08/28/24: PM) Lymph Absolute [1.2-3.4 K/mcL] 1.7 K/mcL (08/28/24:38 PM) UA Nitrite [Negative] Negative (08/28/24: PM) UA Glucose [Negative] Negative (08/28/24: PM) Hct [37.0-47.0 %] 43.0 % (08/28/24 12:38 PM) U Cocaine Scrn [Negative] Negative (08/28/24: PM) Calcium Level [8.6-10.3 mg/dL] 9.0 mg/dL (08/28/24 12:38 PM) Ripley Absolute [0.1-0.6 K/mcL] 0.5 K/mcL (08/28/24:38 PM) Albumin Level [3.5-5.7 g/dL] 4.3 g/dL (08/28/24 12:38 PM) Protein Total [6.4-8.9 g/dL] 7.5 g/dL (08/28/24:38 PM) UA Protein [Negative] Negative (08/28/24:23 PM) MCH [27.0-31.0 pg] 32.0 pg *HI* (08/28/2438 PM) Neutro Absolute [1.4-6.5 K/mcL] 3.3 K/mc L (08/28/24:38 PM) Bilirubin Total [0.3-1.0 mg/dL] 0.5 mg/d L (08/28/24:38 PM) Hgb [12.0-16.0 g/dL] 15.4 g/dL (08/28/24:38 PM) Alk Phos [34-104 IntlUnit/L] 76 IntlUnit /L (08/28/24:38 PM) UA Blood [Negative] Negative (08/28/24: PM) MPV [7.4-10.4 fL] 7.3 fL *LOW* (08/28/24:38 PM) UA Spec Grav [1.001-1.030] 1.010 (08/28/24: PM) Platelets [130-400 K/mcL] 336 K/mcL (08/28/24:38 PM) CO2 [21-31 mmol/L] 23 mmol/L (08/28/24:38 PM) Eos Absolute [0.0-0.2 K/mcL] 0.3 K/mcL *HI* (08/28/24 PM) U Renetta Scrn [Negative] Negative (08/28/24: PM) UA pH [5.00-9.00] 7.00 (08/28/24: PM) U Opiate Scrn [Negative] Negative (08/28/24 PM) UA Appear [Clear] Clear (08/28/24 12:23 PM) Chloride Level [98-107 mmol/L] 106 mmol/ L (08/28/24 12:38 PM) U Oxy Scrn [Negative] Negative (08/28/24 12:23 PM) U PCP Scrn [Negative] Negative (08/28/24 12:23 PM) RDW-CV [11.5-14.5 %] 13.3 % (08/28/24 12:38 PM) A/G Ratio [1.0-2.5 g/dL] 1.3 g/dL (08/28/24 12:38 PM) BUN/Creat Ratio [8.0-20.0] 10.0 (08/28/24 12:38 PM) Globulin [2.3-3.5 g/dL] 3.2 g/dL (08/28/24 12:38 PM) U THC Scr [Negative] Positive *ABN* (08/28/24 12:23 PM) U Methadone Scr [Negative] Negative (08/28/24 12:23 PM) hCG Qual Serum [Negative] Negative (08/28/24 12:38 PM) Slide Review Not Indicated (08/28/24 12:38 PM) Urine Srce Clean Catch (08/28/24 12:23 PM) U Buprenorph Scr [Negative] Negative (08/28/24 12:23 PM) U mAMP Scr [Negative] Negative (08/28/24 12:23 PM) U TCA Scr [Negative] Positive *ABN* (08/28/24 12:23 PM) Creatinine Level [0.60-1.20 mg/dL] 0.60 mg/dL (08/28/24 12:38 PM) Anion Gap [3.0-12.0] 7.0 (08/28/24 12:38 PM) Eos, Auto [0.00-3.00 %] 4.50 % *HI* (08/28/24 12:38 PM) eGFR CKD-EPI [>=60 mL/min/1.73 m2] 118 m L/min/1.73 m2 (08/28/24 12:38 PM) U Fentanyl Scr [Negative] Negative (08/28/24 12:23 PM) ESR, Westergren [0-20 mm/hr] 17 mm/hr (08/28/24 12:38 PM) 1Result Comment: Calculated using method: Cockroft-Gault (Actual Weight) 2Interpretive Data: Interpretive Data applies to all urine drug screen testing performed. This test only provides screening test results; all positive results are unconfirmed. A more specific alternate chemical method must be used to obtain a confirmed and analytical result.?? Gas Chromatography/Mass Spectrometry (GC/MS) is the preferred confirmatory method. These test results are to be used for medical treatment only.?? Unconfirmed screening results must not be used for non-medical purposes. PLEASE CONTACT THE LABORATORY IF YOU WISH TO SEND FOR CONFIRMATORY (GC/MS) TESTING BASED UPON SCREENING RESULTS Cutoff Concentrations: AMP ? Amphetamine ? 500 ng/mL BAR? Barbiturates?200 ng/mL BZO ? Benzodiazepines? 150 ng/mL BUP ? Buprenorphine? 10 ng/mL AL? Cocaine? 150 ng/mL MAMP Methamphetamine? 500 ng/mL MTD? Methadone? 200 ng/mL OPI? Opiates? 100 ng/mL OXY ? Oxycodone? 100 ng/mL PCP ? Phencyclidine? 25 ng/mL THC ? Cannabinoids? 50 ng/mL TCA? Tricyclic Antidepressants? 300 ng/mL Fent? Fentanyl? 5 ng/mL Radiology Reports * Exam Date Time Procedure Performing Provider Status 08/28/24 12:[address] Angio Brain/Head Cassie Vora (Verified) Notes: (CT Angio Brain/Head) Reason For Exam: Posterior occipital headaches with R monocular visual field loss episodes for the last 12-months CT Angio Brain/Head PROCEDURE INFORMATION: Exam: CTA Head Without And With Contrast, Arteriography Exam date and time: 08/28/2024 12:45 PM Age: 39 years old Clinical indication: Stroke-like symptoms; Headache; Additional info: Posterior occipital headaches with R monocular visual field loss episodes for the last 12-months TECHNIQUE: Imaging protocol: Computed tomographic angiography of the head without and with contrast. Exam focused on the arteries. 3D rendering (Not supervised by radiologist): MIP and/or 3D reconstructed images were created by the technologist. Radiation optimization: All CT scans at this facility use at least one of these dose optimization techniques: automated exposure control; mA and/or kV adjustment per patient size (includes targeted exams where dose is matched to clinical indication); or iterative reconstruction. Contrast material: 370; Contrast volume: 100 ml; Contrast route: INTRAVENOUS (IV); Other technique: STROKE PROTOCOL was implemented. COMPARISON: CT ANGIO NECK 08/28/2024 12:45 PM FINDINGS: ANTERIOR CIRCULATION: Right internal carotid artery: Intracranial segment is patent with no significant stenosis or occlusion. No aneurysm. Right middle cerebral artery: No occlusion or significant stenosis. No aneurysm. Right anterior cerebral artery: No occlusion or significant stenosis. No aneurysm. Left internal carotid artery: Intracranial segment is patent with no significant stenosis. No aneurysm. Left middle cerebral artery: No occlusion or significant stenosis. No aneurysm. Left anterior cerebral artery: No occlusion or significant stenosis. No aneurysm. POSTERIOR CIRCULATION: Right vertebral artery: No occlusion or significant stenosis. No aneurysm. Left vertebral artery: No occlusion or significant stenosis. No aneurysm. Basilar artery: No occlusion or significant stenosis. No aneurysm. Right posterior cerebral artery: No occlusion or significant stenosis. No aneurysm. Left posterior cerebral artery: No occlusion or significant stenosis. No aneurysm. Other arteries: The right ophthalmic artery is visualized. HEAD: Brain: There is no evidence of intracranial large vessel stenosis or occlusion. Cerebral ventricles: Normal. No ventriculomegaly. Bones: Unremarkable. No acute fracture. Paranasal sinuses: Visualized sinuses are normal. No fluid levels. Mastoid air cells: Visualized mastoids are normal. No mastoid effusion. Soft tissues: Unremarkable. Other findings: Noncontrast images demonstrate no acute infarct or hemorrhage. IMPRESSION: 1. There is no evidence of intracranial large vessel stenosis or occlusion. 2. The right ophthalmic artery is visualized. ASSESSMENT: ASPECTS (Karen Stroke Program Early CT Score) is 10. THIS DOCUMENT HAS BEEN ELECTRONICALLY SIGNED BY RAYMOND RUSSELL MD on 08/28/2024 01:11 PM Final Signed by: Raymond Russell MD Signed (Electronic Signature): 08/28/2024 1:11 pm * Exam Date Time Procedure Performing Provider Status 08/28/24 12:[address] Angio Neck Diony, Cassie; Auth (Verified) Notes: (CT Angio Neck) Reason For Exam: Posterior occipital headaches with R monocular visual field loss episodes for the last 12-months CT Angio Neck PROCEDURE INFORMATION: Exam: CTA Neck With Contrast Exam date and time: 08/28/2024 12:45 PM Age: 39 years old Clinical indication: Stroke-like symptoms; Headache; Additional info: Posterior occipital headaches with R monocular visual field loss episodes for the last 12-months TECHNIQUE: Imaging protocol: Computed tomographic angiography of the neck with contrast. Exam focused on the cervical segments of the vasculature. 3D rendering (Not supervised by radiologist): MIP and/or 3D reconstructed images were created by the technologist. Radiation optimization: All CT scans at this facility use at least one of these dose optimization techniques: automated exposure control; mA and/or kV adjustment per patient size (includes targeted exams where dose is matched to clinical indication); or iterative reconstruction. Contrast material: 370; Contrast volume: 100 ml; Contrast route: INTRAVENOUS (IV); COMPARISON: CT ANGIO HEAD 08/28/2024 12:45 PM FINDINGS: Right common carotid artery: No stenosis. No dissection or occlusion. Right internal carotid artery: No stenosis of the extracranial segment. No dissection or occlusion. Right external carotid artery: No occlusion or stenosis of the origin. Left common carotid artery: No stenosis. No dissection or occlusion. Left internal carotid artery: No stenosis of the extracranial segment. No dissection or occlusion. Left external carotid artery: No occlusion or stenosis of the origin. Right vertebral artery: No stenosis. No dissection or occlusion. Left vertebral artery: No stenosis. No dissection or occlusion. Thyroid: The thyroid appears normal. Teeth: Moderate dental disease is seen. Lymph nodes: There are numerous prominent but non-pathologic lymph nodes in the neck. There are no nodes of pathologic dimensions. Soft tissues: Normal. No significant soft tissue swelling. Bones/joints: No acute fracture. Lungs: The visualized portions of the lung apices are normal. IMPRESSION: 1. Moderate dental disease is seen. 2. There is no evidence of brachiocephalic arterial pathology. 3. There are codominant vertebral arteries with no stenosis or dissection. REFERENCES: NASCET CRITERIA. The degree of stenosis in the cervical segment of the internal carotid artery is based on NASCET criteria. Normal is no stenosis. Mild is less than 50% stenosis. Moderate is 50-69% stenosis. Severe is 70% to 99% stenosis. Total occlusion is no detectable patent lumen. THIS DOCUMENT HAS BEEN ELECTRONICALLY SIGNED BY RAYMOND RUSSELL MD on 08/28/2024 01:15 PM Final Signed by: Raymond Russell MD Signed (Electronic Signature): 08/28/2024 1:15 pm Vital Signs Most recent to oldest [Reference Range]: 1 2 Temperature Temporal Artery [36-38 Deg C ] 36.8 Deg C (08/28/24 11:24 AM) Heart Rate Monitored [60-100 bpm] 89 bpm (08/28/24 2:00 PM) 118 bpm *HI* (08/28/24 11:24 AM) Respiratory Rate [12-24 br/min] 18 br/mi n (08/28/24 11:24 AM) Blood Pressure [90-120/60-80 mmHg] 134/8 4mmHg *HI* (08/28/24 11:24 AM) Mean Arterial Pressure, Cuff [65-140 mmHg] 101 mmHg (08/28/24 11:24 AM) Weight 70.31 kg (08/28/24 11:24 AM) Weight Dosing 70.310 kg (08/28/24 11:24 AM) Height 160 cm (08/28/24 11:24 AM) Body Mass Index 27.46 kg/m2 (08/28/24 11:24 AM) Social History Social History Type Response Tobacco Tobacco use status u nknown Tobacco Use:. Sex Sex Representation Female (finding) Hospital Discharge Instructions Patient Education 08/28/2024 12:24:16 General Headache Without Cause General Headache Without Cause A headache is pain or discomfort felt around the head or neck area. There are many causes and typesof headaches. A few common types include: ??? Tension headaches. ??? Migraine headaches. ??? Cluster headaches. ??? Chronic daily headaches. Sometimes, the specific cause of a headache may not be found. Follow these instructions at home: Watch your condition for any changes. Let your health care provider know about them. Take these steps to help with your condition: Managing pain ??? Take yitn-ors-hfosozi and prescription medicines only as told by your health care provider. Treatment may include medicines for pain that are taken by mouth or applied to the skin. ??? Lie down in a dark, quiet room when you have a headache. ??? Keep lights dim if bright lights bother you or make your headaches worse. ??? If directed, put ice on your head and neck area: ??? Put ice in a plastic bag. ??? Place a towel between your skin and the bag. ??? Leave the ice on for 20 minutes, 2???3 times per day. ??? Remove the ice if your skin turns bright red. This is very important. If you cannot feel pain, heat, or cold, you have a greater risk of damage to the area. ??? If directed, apply heat to the affected area. Use the heat source that your health care provider recommends, such as a moist heat pack or a heating pad. ??? Place a towel between your skin and the heat source. ??? Leave the heat on for 20???30 minutes. ??? Remove the heat if your skin turns bright red. This is especially important if you are unable to feel pain, heat, or cold. You have a greater risk of getting burned. Eating and drinking ??? Eat meals on a regular schedule. ??? If you drink alcohol: ??? Limit how much you have to: ??? 0???1 drink a day for women who are not . ??? 0???2 drinks a day for men. ??? Know how much alcohol is in a drink. In the [place] one drink equals one 12 oz bottle of beer (355 mL), one 5 oz glass of wine (148 mL), or one 1?? oz glass of hard liquor (44 mL). ??? Stop drinking caffeine, or decrease the amount of caffeine you drink. ??? Drink enough fluid to keep your urine pale yellow. General instructions ??? Keep a headache journal to help find out what may trigger your headaches. For example, write down: ??? What you eat and drink. ??? How much sleep you get. ??? Any change to your diet or medicines. ??? Try massage or other relaxation techniques. ??? Limit stress. ??? Sit up straight, and do not tense your muscles. ??? Do not use any products that contain nicotine or tobacco. These products include cigarettes, chewing tobacco, and vaping devices, such as e-cigarettes. If you need help quitting, ask your health care provider. ??? Exercise regularly as told by your health care provider. ??? Sleep on a regular schedule. Get 7???9 hours of sleep each night, or the amount recommended by your health care provider. ??? Keep all follow-up visits. This is important. Contact a health care provider if: ??? Medicine does not help your symptoms. ??? You have a headache that is different from your usual headache. ??? You have nausea or you vomit. ??? You have a fever. Get help right away if: ??? Your headache: ??? Becomes severe quickly. ??? Gets worse after moderate to intense physical activity. ??? You have any of these symptoms: ??? Repeated vomiting. ??? Pain or stiffness in your neck. ??? Changes to your vision. ??? Pain in an eye or ear. ??? Problems with speech. ??? Muscular weakness or loss of muscle control. ??? Loss of balance or coordination. ??? You feel faint or pass out. ??? You have confusion. ??? You have a seizure. These symptoms may represent a serious problem that is an emergency. Do not wait to see if the symptoms will go away. Get medical help right away. Call your local emergency services (911 in the [place] Do not drive yourself to the hospital. Summary ??? A headache is pain or discomfort felt around the head or neck area. ??? There are many causes and types of headaches. In some cases, the cause may not be found. ??? Keep a headache journal to help find out what may trigger your headaches. Watch your condition for any changes. Let your health care provider know about them. ??? Contact a health care provider if you have a headache that is different from the usual headache, or if your symptoms are not helped by medicine. ??? Get help right away if your headache becomes severe, you vomit, you have a loss of vision, you lose your balance, or you have a seizure. This information is not intended to replace advice given to you by your health care provider. Make sure you discuss any questions you have with your health care provider. Document Revised: 01/30/2022 Document Reviewed: 01/30/2022 [employer] Patient Education ?? 2022 [employer] Follow Up Care 08/28/2024 11:12:24 With:STEFAN CHILD MD Address: [address] [address]- When: Unknown Comments:Thank you for allowing us to evaluate you in the emergency department today.?? [facility]?? Fortunately your workup in the emergency department was unremarkable and reassuring.?? Here are some instructions to follow-up on emergency department discharge:1.?? Medications. NSAIDs such as ibuprofen help decrease swelling, pain and if present fever.?? You??may take 800 mg every 6 hours but understand you should take this with food as it can cause GI bleeding or kidney problems in certain populations of people.?? Tylenol (acetaminophen) 1000 mg every 4 hours not to exceed 4000 mg in 24 hours.2.?? Alternative measures.?? Apply heat or ice on the headache area.?? For an ice pack you can also put crushed ice in a plastic bag and cover the bag with a towel before you apply to your skin.?? Ice and heat both help decrease pain, and heat also helps decrease muscle spasms.?? Apply heat for 20 to 30 minutes every 2 hours.?? Apply ice for 15 to 20 minutesevery hour.?? Apply heat or ice for as long as for many days for relief that you deem necessary.?? Relax your muscles by lying in a comfortable position and closing her eyes.?? Relax your muscles slowly and cautiously.?? Starting her toes and work all the way up your body.?? There are iPhone applications that can help you with this type of meditation.3.?? Preventing an acute headache.?? Avoid anything that can trigger an acute headache.?? This includes smoking, alcohol.?? Exercise can reduce tension and help with headache pain.?? Aim for 30 minutes of physical activity on most days of the week.?? Eat a variety of healthy foods including fruits, vegetables, low-fat dairy products, lean meats, fish, whole grains, cooked beans.4.?? Follow-up.?? Keep your appointment as scheduled with Dr. Yasmani White.??Return to the emergency department earlier if you have continued severe pain, focal numbness/weakness in 1 side of your face or body or if you are forgetful/confused or having trouble speaking. Physician Emergency department Note * Fareed Diaz DO: PERFORM, MODIFY Event Display: ED Note Physician Authored Date: [id number] DOTTIE BUTTS :1985 Age:39 years Sex:Female Visit Date:08/28/2024 Primary Care Physician: FLORENTIN MANZANARES APRN Basic Information Time Seen: Fareed Diaz DO / 08/28/2024 11:12 Chief Complaint Patient in with complaints of a headahce and vision problems that have been ongoing for months. ??Saw eye doctor on , diagnosed with optic nerve swelling. ??Very anxious in triage. 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 History Of Present Illness: This is a 39-year-old female PMH as documented to the right highlighting??cervical degenerative??disc disease, pernicious anemia,??significant major depressive disorder with??anxiety/panic attack??pre sents to the emergency department??with concerns??of eadpa-of-sfqtmmp headache.?? Patient states that she has been dealing with??daily headache??symptoms for at least just shy of a year.?? She statesthe??pressure and discomfort is primarily in the posterior cervical/occipital region??with tension about the upper??back musculature.?Additionally, she states that she gets??transient monocular visual field loss??on the right. ??She states if she flexes her neck forward??and then extends her cervical spine she will??have this visual field loss completely black??coming back slowly to??fuzzy??and then to normal??in about 5 seconds. ??She said sometimes that this transient monocular visual field loss will happen??when changing positions. ??The symptoms are always associated with a headache.?She otherwise denies any focal neurologic deficit, ataxia, dysarthria??or acute visual changes. ??On Friday??she??presented to her??nurse practitioner Miss Manzanares??who referred her to ophthalmology.?? On Friday she was evaluated by Dr. Royal from [facility].?? He told her that she has??bilateral optic disc??swelling R>L??and referred her to neurology.?? She has a scheduled appointment this Friday with Dr. Rabago in [place], [place]. ?? Since being??told of these findings, she has had complete??decline??in her psychiatric health. ??She is??acutely??anxious??with panic??believing she is going to .?? She denies any SI or HI??butis just terrified that she has an underlying brain tumor which will result in her . Review of Systems: 12 point review of systems was reviewed and significant for those symptoms reported in the history of present illness Physical Exam Vitals & Measurements T:??36.8?C ??(Temporal Artery)?? HR:??118??(Monitored)?? RR:??18?? BP:??134/84?? SpO2:??99%?? HT:??160??cm?? WT:??70.31??kg?? BMI:??27.46?? VISUAL ACUITY: 20:20 OS; 20:20 OU; 20:20 OD GENERAL APPEARANCE: Acute severe anxiety with panic. ??Able to de-escalate verbally with reassurance. HEENT: NC/AT; EOMI. PERRL, no conjunctival injection; no scleral icterus. ??Visualized portions of the fundus unremarkable??with??sharp optic disc??margin. ??TMs without infection. Nares patent. No posterior pharyngeal erythema or tonsillar exudate.?? No pain over percussion of the temporal arteries bilaterally. NECK: Supple.?? No bruit of the carotids bilaterally. ??No JVD. HEART: Tachycardia; No M/R/G CHEST: CTA B/L with symmetric excursions.?? ABDOMEN: S/NT/ND/no peritoneal signs/bowel sounds present. No CVAT. : Deferred. MUSCULOSKELETAL: Normal muscle strength in all major muscle groups with no signs of weakness or asymmetry. No midline CTLS tenderness or step-offs. ?? EXTREMITIES: No edema. ??No unilateral leg swelling or posterior calf tenderness. NEURO:??Cranial Nerves III-XII intact; no focal neurological deficit - gross motor and sensory function intact; no dysarthria, no ataxia, no pronator drift, cerebellar signs grossly intact without dysmetria or dysdiadochokinesia. Babinski negative, DTR (Achilles/Patella) brisk 2/4 equal b/l Medical Decision Making: Chronic headaches with??episodic??right-sided transient monocular visual field loss.?? Reported optic disc swelling bilaterally right greater than left??with appointment scheduled??this Friday with neurology.?? Neurologic examination completely benign. ??Visual acuity as documented above.?? It is entirely possible the patient has underlying pseudotumor cerebri??or space-occupying lesion.?? Low pretest probability of??acute hemorrhage, glaucoma,??stroke.?? Considered ophthalmic artery stroke, retinal vein occlusion, retinal vasospasm with retinal migraine, giant cell arteritis, atherosclerosisinvolving the intracranial carotid ophthalmic artery, drug use especially cocaine??been associated with??vasospasm causing transient monocular visual field loss.?? Will image with CT angiogram head/neck??as well as obtain screening laboratory workup.?? Will also??discuss risks and benefits of lumbar puncture??to identify opening pressure primarily.?? Therapeutically we will treat with intravenous fluids, intravenous Ativan, intravenous Benadryl, intravenous??Compazine. Procedure No Qualifying Data Reexamination/Reevaluation 1:30 PM: Patient had clinical improvement with treatments provided emergency department. ??Screening laboratory workup and advanced imaging were unremarkable. ??Reassurance was provided and she is feeling much improved.?? Patient??preferred to wait till her neurology appointment on Friday to discuss lumbar puncture for opening pressures and/or other advanced imaging.?? I do not find this to be unreasonable??at present time.?? Discharge instructions specifically discussed as documented below. Assessment/Plan 1.??Transient vision disturbance, right??H53.9 2.??Chronic headache??R51.9 3.??Generalized anxiety disorder with panic attacks??F41.1 Other chronic pain??G89.29 Panic disorder [episodic paroxysmal anxiety]??F41.0 Orders: Discharge Patient, 08/28/24 13:22:00 EST, Home Independently Peripheral IV Insertion, 08/28/24 11:55:00 EST Vital Signs, 08/28/24 11:55:00 EST, Once, Stop date 08/28/24 11:55:00 EST, Vital signs per ED Nursing Standard of Care Patient Education General Headache Without Cause Follow Up With When Contact Information STEFAN CHILD MD [address] [place] [address]- Additional Instructions: Thank you for allowing us to evaluate you in the emergency department today.?? You presented to the emergency department with headache.?? Fortunately your workup in the emergency department was unremarkable and reassuring.?? Here are some instructions to follow-up on emergency department discharge: ?? 1.?? Medications. NSAIDs such as ibuprofen help decrease swelling, pain and if present fever.?? You??may take 800 mg every 6 hours but understand you should take this with food as it can cause GI bleeding or kidney problems in certain populations of people.?? Tylenol (acetaminophen) 1000 mg every 4hours not to exceed 4000 mg in 24 hours. ?? 2.?? Alternative measures.?? Apply heat or ice on the headache area.?? For an ice pack you can alsoput crushed ice in a plastic bag and cover the bag with a towel before you apply to your skin.?? Ice and heat both help decrease pain, and heat also helps decrease muscle spasms.?? Apply heat for 20 to 30 minutes every 2 hours.?? Apply ice for 15 to 20 minutes every hour.?? Apply heat or ice for as long as for many days for relief that you deem necessary.?? Relax your muscles by lying in a comfortable position and closing her eyes.?? Relax your muscles slowly and cautiously.?? Starting her toesand work all the way up your body.?? There are iPhone applications that can help you with this typeof meditation. ?? 3.?? Preventing an acute headache.?? Avoid anything that can trigger an acute headache.?? This includes smoking, alcohol.?? Exercise can reduce tension and help with headache pain.?? Aim for 30 minutes of physical activity on most days of the week.?? Eat a variety of healthy foods including fruits,vegetables, low- fat dairy products, lean meats, fish, whole grains, cooked beans. ?? 4.?? Follow-up.?? Keep your appointment as scheduled with Dr. Stefan Child.??Return to theemergency department earlier if you have continued severe pain, focal numbness/weakness in 1 side of your face or body or if you are forgetful/confused or having trouble speaking. Medication Reconciliation Unchanged amitriptyline (amitriptyline 25 mg oral tablet) ?? azithromycin (azithromycin 250 mg oral tablet) ?? cephalexin (cephalexin 500 mg oral capsule) ?? citalopram (citalopram 40 mg oral tablet)1 tab Oral (given by mouth) every day. ?? erythromycin ophthalmic (erythromycin 0.5% ophthalmic ointment) ?? ketorolac (ketorolac 10 mg oral tablet)1 tab Oral (given by mouth) every 6 hours as needed as needed for pain. not to exceed 40 mg/day and 5 days duration for all dose forms. Refills: 0. ?? neomycin/polymyxin B/dexamethasone ophthalmic (neomycin/polymyxin B/dexamethasone 3.5 mg-10,000 units-1 mg/mL ophthalmic suspension)1 Drops Both eyes every 4 hours. ?? ondansetron (ondansetron 4 mg oral tablet, disintegrating)1 tab Oral (given by mouth) every 6 hoursas needed as needed for nausea/vomiting. Refills: 0. ?? 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 Tobacco Tobacco use status unknown Tobacco Use:. Diagnostic Results CT Angio Brain/Head 08/28/2024 13:[address] Angio Neck 08/28/2024 13:[address] Angio Brain/Head ?? 08/28/24 12:45:07 PROCEDURE INFORMATION: Exam: CTA Head Without And With Contrast, Arteriography Exam date and time: 08/28/2024 12:45 PM Age: 39 years old Clinical indication: Stroke-like symptoms; Headache; Additional info: Posterior occipital headaches with R monocular visual field loss episodes for the last 12-months ?? TECHNIQUE: Imaging protocol: Computed tomographic angiography of the head without and with contrast. Exam focused on the arteries. 3D rendering (Not supervised by radiologist): MIP and/or 3D reconstructed images were created by the technologist. Radiation optimization: All CT scans at this facility use at least one of these dose optimization techniques: automated exposure control; mA and/or kV adjustment per patient size (includes targeted exams where dose is matched to clinical indication); or iterative reconstruction. Contrast material: 370; Contrast volume: 100 ml; Contrast route: INTRAVENOUS (IV); Other technique: STROKE PROTOCOL was implemented. ?? COMPARISON: CT ANGIO NECK 08/28/2024 12:45 PM ?? FINDINGS: ?? ANTERIOR CIRCULATION: Right internal carotid artery: Intracranial segment is patent with no significant stenosis or occlusion. No aneurysm. Right middle cerebral artery: No occlusion or significant stenosis. No aneurysm. Right anterior cerebral artery: No occlusion or significant stenosis. No aneurysm. ?? Left internal carotid artery: Intracranial segment is patent with no significant stenosis. No aneurysm. Left middle cerebral artery: No occlusion or significant stenosis. No aneurysm. ?? Left anterior cerebral artery: No occlusion or significant stenosis. No aneurysm. ?? POSTERIOR CIRCULATION: Right vertebral artery: No occlusion or significant stenosis. No aneurysm. Left vertebral artery: No occlusion or significant stenosis. No aneurysm. Basilar artery: No occlusion or significant stenosis. No aneurysm. Right posterior cerebral artery: No occlusion or significant stenosis. No aneurysm. Left posterior cerebral artery: No occlusion or significant stenosis. No aneurysm. ?? Other arteries: The right ophthalmic artery is visualized. ?? HEAD: Brain: There is no evidence of intracranial large vessel stenosis or occlusion. Cerebral ventricles: Normal. No ventriculomegaly. Bones: Unremarkable. No acute fracture. Paranasal sinuses: Visualized sinuses are normal. No fluid levels. Mastoid air cells: Visualized mastoids are normal. No mastoid effusion. Soft tissues: Unremarkable. ?? Other findings: Noncontrast images demonstrate no acute infarct or hemorrhage. ?? IMPRESSION: 1. There is no evidence of intracranial large vessel stenosis or occlusion. 2. The right ophthalmic artery is visualized. ?? ASSESSMENT: ASPECTS (Karen Stroke Program Early CT Score) is 10. ? THIS DOCUMENT HAS BEEN ELECTRONICALLY SIGNED BY RAYMOND RUSSELL MD on 08/28/2024 01:11 PM ?? Signed By: Raymond Russell MD ?? CT Angio Neck ?? 08/28/24 12:45:07 PROCEDURE INFORMATION: Exam: CTA Neck With Contrast Exam date and time: 08/28/2024 12:45 PM Age: 39 years old Clinical indication: Stroke-like symptoms; Headache; Additional info: Posterior occipital headaches with R monocular visual field loss episodes for the last 12-months ?? TECHNIQUE: Imaging protocol: Computed tomographic angiography of the neck with contrast. Exam focused on the cervical segments of the vasculature. 3D rendering (Not supervised by radiologist): MIP and/or 3D reconstructed images were created by the technologist. Radiation optimization: All CT scans at this facility use at least one of these dose optimization techniques: automated exposure control; mA and/or kV adjustment per patient size (includes targeted exams where dose is matched to clinical indication); or iterative reconstruction. Contrast material: 370; Contrast volume: 100 ml; Contrast route: INTRAVENOUS (IV); ?? COMPARISON: CT ANGIO HEAD 08/28/2024 12:45 PM ?? FINDINGS: Right common carotid artery: No stenosis. No dissection or occlusion. Right internal carotid artery: No stenosis of the extracranial segment. No dissection or occlusion. Right external carotid artery: No occlusion or stenosis of the origin. ?? Left common carotid artery: No stenosis. No dissection or occlusion. Left internal carotid artery: No stenosis of the extracranial segment. No dissection or occlusion. Left external carotid artery: No occlusion or stenosis of the origin. ?? Right vertebral artery: No stenosis. No dissection or occlusion. Left vertebral artery: No stenosis. No dissection or occlusion. ?? Thyroid: The thyroid appears normal. Teeth: Moderate dental disease is seen. Lymph nodes: There are numerous prominent but non-pathologic lymph nodes in the neck. There are no nodes of pathologic dimensions. Soft tissues: Normal. No significant soft tissue swelling. ?? Bones/joints: No acute fracture. ?? Lungs: The visualized portions of the lung apices are normal. ?? IMPRESSION: 1. Moderate dental disease is seen. 2. There is no evidence of brachiocephalic arterial pathology. 3. There are codominant vertebral arteries with no stenosis or dissection. ?? REFERENCES: NASCET CRITERIA. The degree of stenosis in the cervical segment of the internal carotid artery is based on NASCET criteria. Normal is no stenosis. Mild is less than 50% stenosis. Moderate is 50-69% stenosis. Severe is 70% to 99% stenosis. Total occlusion is no detectable patent lumen. ? THIS DOCUMENT HAS BEEN ELECTRONICALLY SIGNED BY RAYMOND RUSSELL MD on 08/28/2024 01:15 PM ?? Signed By: Raymond Russell MD Lab Results CBC and Differential?? LATEST RESULTS?? HISTORICAL RESULTS?? WBC?? 08/28/24 12:38?? 5.9?? 04/26/24?? 6.8?? RBC?? 08/28/24 12:38?? 4.82?? 04/26/24?? 4.89?? Hgb?? 08/28/24 12:38?? 15.4?? 04/26/24?? 15.3?? Hct?? 08/28/24 12:38?? 43.0?? 04/26/24?? 44.2?? MCV?? 08/28/24 12:38?? 89.4?? 04/26/24?? 90.2?? MCH?? 08/28/24 12:38?? 32.0 ??High?? 04/26/24?? 31.2 ??High?? MCHC?? 08/28/24 12:38?? 35.8?? 04/26/24?? 34.6?? RDW-CV?? 08/28/24 12:38?? 13.3?? 04/26/24?? 13.1?? Platelets?? 08/28/24 12:38?? 336?? 04/26/24?? 316?? MPV?? 08/28/24 12:38?? 7.3 ??Low?? 04/26/24?? 7.2 ??Low?? Neutro Auto?? 08/28/24 12:38?? 56.4?? 04/26/24?? 47.3?? Lymph Auto?? 08/28/24 12:38?? 28.9?? 04/26/24?? 39.5?? Ripley Auto?? 08/28/24 12:38?? 8.7?? 04/26/24?? 6.4?? Eos, Auto?? 08/28/24 12:38?? 4.50 ??High?? 04/26/24?? 5.90 ??High?? Basophil Auto?? 08/28/24 12:38?? 1.5 ??High?? 04/26/24?? 0.9 ??High?? Neutro Absolute?? 08/28/24 12:38?? 3.3?? 04/26/24?? 3.2?? Lymph Absolute?? 08/28/24 12:38?? 1.7?? 04/26/24?? 2.7?? Ripley Absolute?? 08/28/24 12:38?? 0.5?? 04/26/24?? 0.4?? Eos Absolute?? 08/28/24 12:38?? 0.3 ??High?? 04/26/24?? 0.4 ??High?? Baso Absolute?? 08/28/24 12:38?? 0.1?? 04/26/24?? 0.1?? Slide Review?? 08/28/24 12:38?? Not Indicated? Miscellaneous Hematology?? LATEST RESULTS?? HISTORICAL RESULTS?? ESR, Westergren?? 08/28/24 12:38?? 17?? 11/12/23?? 10? Routine Chemistry?? LATEST RESULTS?? HISTORICAL RESULTS?? Sodium Level?? 08/28/24 12:38?? 136?? 04/26/24?? 136?? Potassium Level?? 08/28/24 12:38?? 4.0?? 04/26/24?? 3.7?? Chloride Level?? 08/28/24 12:38?? 106?? 04/26/24?? 104?? CO2?? 08/28/24 12:38?? 23?? 04/26/24?? 25?? Alk Phos?? 08/28/24 12:38?? 76?? 04/26/24?? 84?? AST?? 08/28/24 12:38?? 13?? 04/26/24?? 13?? ALT?? 08/28/24 12:38?? 10?? 04/26/24?? 10?? BUN?? 08/28/24 12:38?? 6 ??Low?? 04/26/24?? 5 ??Low?? Glucose Level?? 08/28/24 12:38?? 91?? 04/26/24?? 93?? Creatinine Level?? 08/28/24 12:38?? 0.60?? 04/26/24?? 0.70?? BUN/Creat Ratio?? 08/28/24 12:38?? 10.0?? 04/26/24?? 7.1 ??Low?? eGFR CKD-EPI?? 08/28/24 12:38?? 118?? 04/26/24?? 114?? Calcium Level?? 08/28/24 12:38?? 9.0?? 04/26/24?? 9.0?? Protein Total?? 08/28/24 12:38?? 7.5?? 04/26/24?? 6.8?? Albumin Level?? 08/28/24 12:38?? 4.3?? 04/26/24?? 4.3?? Globulin?? 08/28/24 12:38?? 3.2?? 04/26/24?? 2.5?? A/G Ratio?? 08/28/24 12:38?? 1.3?? 04/26/24?? 1.7?? Bilirubin Total?? 08/28/24 12:38?? 0.5?? 04/26/24?? 0.4?? Anion Gap?? 08/28/24 12:38?? 7.0?? 04/26/24?? 7.0?? Osmolality?? 08/28/24 12:38?? 269 ??Low?? 04/26/24?? 269 ??Low? Testing?? LATEST RESULTS?? hCG Qual Serum?? 08/28/24 12:38?? Negative? Timed Urine Chemistry?? LATEST RESULTS?? Estimated Creatinine Clearance?? 08/28/24 13:08?? 142.49? Urine Toxicology?? LATEST RESULTS?? U Amph Scrn?? 08/28/24 12:23?? Negative?? U Renetta Scrn?? 08/28/24 12:23?? Negative?? U Benzodia Scrn?? 08/28/24 12:23?? Negative?? U Buprenorph Scr?? 08/28/24 12:23?? Negative?? U Cocaine Scrn?? 08/28/24 12:23?? Negative?? U Fentanyl Scr?? 08/28/24 12:23?? Negative?? U TCA Scr?? 08/28/24 12:23?? Positive Abnormal?? U THC Scr?? 08/28/24 12:23?? Positive Abnormal?? U mAMP Scr?? 08/28/24 12:23?? Negative?? U Methadone Scr?? 08/28/24 12:23?? Negative?? U Opiate Scrn?? 08/28/24 12:23?? Negative?? U Oxy Scrn?? 08/28/24 12:23?? Negative?? U PCP Scrn?? 08/28/24 12:23?? Negative? UA Macroscopic?? LATEST RESULTS?? HISTORICAL RESULTS?? Urine Srce?? 08/28/24 12:23?? Clean Catch?? 11/12/23?? Clean Catch?? UA Color?? 08/28/24 12:23?? Yellow?? 11/12/23?? Yellow?? UA Appear?? 08/28/24 12:23?? Clear?? 11/12/23?? Clear?? UA Glucose?? 08/28/24 12:23?? Negative?? 11/12/23?? Negative?? UA Bili?? 08/28/24 12:23?? Negative?? 11/12/23?? Small Abnormal?? UA Ketones?? 08/28/24 12:23?? Negative?? 11/12/23?? 40 Abnormal?? UA Spec Grav?? 08/28/24 12:23?? 1.010?? 11/12/23?? 1.010?? UA Blood?? 08/28/24 12:23?? Negative?? 11/12/23?? Negative?? UA pH?? 08/28/24 12:23?? 7.00?? 11/12/23?? 7.50?? UA Protein?? 08/28/24 12:23?? Negative?? 11/12/23?? Negative?? UA Urobilinogen?? 08/28/24 12:23?? 0.2?? 11/12/23?? 0.2?? UA Nitrite?? 08/28/24 12:23?? Negative?? 11/12/23?? Negative?? UA Leuk Est?? 08/28/24 12:23?? Negative?? 11/12/23?? Negative? Electronically Signed on 08/28/2024 13:37 EST Fareed Diaz DO Emergency department Discharge instructions * Fareed Diaz DO: PERFORM Event Display: ED Discharge Information Authored Date: [id number] DOTTIE BUTTS :1985 Age:39 years Sex:Female Visit Date:08/28/2024 Primary Care Physician: FLORENTIN MANZANARES APRN Discharge Instructions We would like to thank you for allowing us to assist you with your healthcare needs. The following includes patient education materials and information regarding your injury/illness. Diagnosis from Today's Visit Transient vision disturbance, right Chronic headache Generalized anxiety disorder with panic attacks Other chronic pain Panic disorder [episodic paroxysmal anxiety] Discharge Vitals Temperature??(Temporal Artery) 98.2 ??F (36.8 ??C) Heart Rate??(Monitored) 118 Respiratory Rate?? 18 Blood Pressure?? 134/84?? SpO2?? 99% Height?? 62.99 in (160 cm) Weight?? 155.03 lb (70.31 kg) BMI?? 27.46 Allergies penicillins traMADol traZODone Zolpidem Tartrate??(Parasomnia) clindamycin??(Anaphylaxis, Vomiting) What to Do Next You Need to Schedule the Following Appointments Follow Up with??STEFAN CHILD MD Why: Thank you for allowing us to evaluate you in the emergency department today.?? [facility]?? Fortunately your workup in the emergency department was unremarkable and reassuring.?? Here are some instructions to follow-up on emergency department discharge: ?? 1.?? Medications. NSAIDs such as ibuprofen help decrease swelling, pain and if present fever.?? You??may take 800 mg every 6 hours but understand you should take this with food as it can cause GI bleeding or kidney problems in certain populations of people.?? Tylenol (acetaminophen) 1000 mg every 4hours not to exceed 4000 mg in 24 hours. ?? 2.?? Alternative measures.?? Apply heat or ice on the headache area.?? For an ice pack you can alsoput crushed ice in a plastic bag and cover the bag with a towel before you apply to your skin.?? Ice and heat both help decrease pain, and heat also helps decrease muscle spasms.?? Apply heat for 20 to 30 minutes every 2 hours.?? Apply ice for 15 to 20 minutes every hour.?? Apply heat or ice for as long as for many days for relief that you deem necessary.?? Relax your muscles by lying in a comfortable position and closing her eyes.?? Relax your muscles slowly and cautiously.?? Starting her toesand work all the way up your body.?? There are iPhone applications that can help you with this typeof meditation. ?? 3.?? Preventing an acute headache.?? Avoid anything that can trigger an acute headache.?? This includes smoking, alcohol.?? Exercise can reduce tension and help with headache pain.?? Aim for 30 minutes of physical activity on most days of the week.?? Eat a variety of healthy foods including fruits,vegetables, low- fat dairy products, lean meats, fish, whole grains, cooked beans. ?? 4.?? Follow-up.?? Keep your appointment as scheduled with Dr. Stefan Child.??Return to theemergency department earlier if you have continued severe pain, focal numbness/weakness in 1 side of your face or body or if you are forgetful/confused or having trouble speaking. Where: [facility] [address] [place], [place] [id number]- You were treated today on an emergency basis; it may be sorenson to contact your primary care provider to notify them of your visit today. You may have been referred to your regular doctor or a specialist, please follow up as instructed. If your condition worsens or you can't get in to see the doctor, contact the Emergency Department. Medications What How Much When Why Instructions Next Dose Unchanged amitriptyline (amitriptyline 25 mg oral tablet) Unchanged azithromycin (azithromycin 250 mg oral tablet) Unchanged cephalexin (cephalexin 500 mg oral capsule) Unchanged citalopram (citalopram 40 mg oral tablet) 1 tab Oral (given by mouth) Every day Unchanged erythromycin ophthalmic (erythromycin 0.5% ophthalmic ointment) Unchanged ketorolac (ketorolac 10 mg oral tablet) 1 tab Oral (given by mouth) Every 6 hours as needed for as needed for pain Musculoskeletal back pain not to exceed 40 mg/ day and 5 days duration for all dose forms ?? Unchanged neomycin/ polymyxin B/ dexamethasone ophthalmic (neomycin/ polymyxin B/ dexamethasone 3.5mg-10,000 units-1 mg/ mL ophthalmic suspension) 1 Drops Both eyes Every 4 hours Unchanged ondansetron (ondansetron 4 mg oral tablet, disintegrating) 1 tab Oral (given by mouth) Every 6 hours as needed for as needed for nausea/vomiting Musculoskeletal back pain Unchanged predniSONE (predniSONE 20 mg oral tablet) Education Materials General Headache Without Cause A headache is pain or discomfort felt around the head or neck area. There are many causes and typesof headaches. A few common types include: ? Tension headaches. ? Migraine headaches. ? Cluster headaches. ? Chronic daily headaches. Sometimes, the specific cause of a headache may not be found. Follow these instructions at home: Watch your condition for any changes. Let your health care provider know about them. Take these steps to help with your condition: Managing pain ? Take [id number] and prescription medicines only as told by your health care provider. Treatment may include medicines for pain that are taken by mouth or applied to the skin. ? Lie down in a dark, quiet room when you have a headache. ? Keep lights dim if bright lights bother you or make your headaches worse. ? If directed, put ice on your head and neck area: ? Put ice in a plastic bag. ? Place a towel between your skin and the bag. ? Leave the ice on for 20 minutes, 2???3 times per day. ? Remove the ice if your skin turns bright red. This is very important. If you cannot feel pain, heat, or cold, you have a greater risk of damage to the area. ? If directed, apply heat to the affected area. Use the heat source that your health care provider recommends, such as a moist heat pack or a heating pad. ? Place a towel between your skin and the heat source. ? Leave the heat on for 20???30 minutes. ? Remove the heat if your skin turns bright red. This is especially important if you are unable to feel pain, heat, or cold. You have a greater risk of getting burned. Eating and drinking ? Eat meals on a regular schedule. ? If you drink alcohol: ? Limit how much you have to: ? 0???1 drink a day for women who are not . ? 0???2 drinks a day for men. ? Know how much alcohol is in a drink. In the [place] one drink equals one 12 oz bottle of beer (355 mL), one 5 oz glass of wine (148 mL), or one 1?? oz glass of hard liquor (44 mL). ? Stop drinking caffeine, or decrease the amount of caffeine you drink. ? Drink enough fluid to keep your urine pale yellow. General instructions ? Keep a headache journal to help find out what may trigger your headaches. For example, write down: ? What you eat and drink. ? How much sleep you get. ? Any change to your diet or medicines. ? Try massage or other relaxation techniques. ? Limit stress. ? Sit up straight, and do not tense your muscles. ? Do not use any products that contain nicotine or tobacco. These products include cigarettes, chewing tobacco, and vaping devices, such as e-cigarettes. If you need help quitting, ask your health careprovider. ? Exercise regularly as told by your health care provider. ? Sleep on a regular schedule. Get 7???9 hours of sleep each night, or the amount recommended by yourhealth care provider. ? Keep all follow-up visits. This is important. Contact a health care provider if: ? Medicine does not help your symptoms. ? You have a headache that is different from your usual headache. ? You have nausea or you vomit. ? You have a fever. Get help right away if: ? Your headache: ? Becomes severe quickly. ? Gets worse after moderate to intense physical activity. ? You have any of these symptoms: ? Repeated vomiting. ? Pain or stiffness in your neck. ? Changes to your vision. ? Pain in an eye or ear. ? Problems with speech. ? Muscular weakness or loss of muscle control. ? Loss of balance or coordination. ? You feel faint or pass out. ? You have confusion. ? You have a seizure. These symptoms may represent a serious problem that is an emergency. Do not wait to see if the symptoms will go away. Get medical help right away. Call your local emergency services (911 in the [place] Do not drive yourself to the hospital. Summary ? A headache is pain or discomfort felt around the head or neck area. ? There are many causes and types of headaches. In some cases, the cause may not be found. ? Keep a headache journal to help find out what may trigger your headaches. Watch your condition for any changes. Let your health care provider know about them. ? Contact a health care provider if you have a headache that is different from the usual headache, orif your symptoms are not helped by medicine. ? Get help right away if your headache becomes severe, you vomit, you have a loss of vision, you loseyour balance, or you have a seizure. This information is not intended to replace advice given to you by your health care provider. Make sure you discuss any questions you have with your health care provider. Document Revised: 01/30/2022 Document Reviewed: 01/30/2022 [employer] Patient Education ?? 2022 [place]. Tests Performed Radiology CT Angio Brain/Head 08/28/2024 13:[address] Angio Neck 08/28/2024 13:15 EST Medications and Immunizations Administered Given Sodium Chloride 0.9%, 1000 mL, Hydration Bolus Ativan, 1 mg, IV Benadryl, 25 mg, IV Push metoclopramide, 10 mg, IV Push Toradol, 15 mg, IV Push Lab Test Name Test Result Date/Time WBC 5.9 K/mcL 08/28/2024 12:38 EST RBC 4.82 Million/mcL 08/28/2024 12:38 EST Hgb 15.4 g/dL 08/28/2024 12:38 EST Hct 43.0 % 08/28/2024 12:38 EST MCV 89.4 fL 08/28/2024 12:38 EST MCH 32.0 pg 08/28/2024 12:38 EST MCHC 35.8 g/dL 08/28/2024 12:38 EST RDW-CV 13.3 % 08/28/2024 12:38 EST Platelets 336 K/mcL 08/28/2024 12:38 EST MPV 7.3 fL 08/28/2024 12:38 EST Neutro Auto 56.4 % 08/28/2024 12:38 EST Lymph Auto 28.9 % 08/28/2024 12:38 EST [place] Auto 8.7 % 08/28/2024 12:38 EST Eos, Auto 4.50 % 08/28/2024 12:38 EST Basophil Auto 1.5 % 08/28/2024 12:38 EST Neutro Absolute 3.3 K/mcL 08/28/2024 12:38 EST Lymph Absolute 1.7 K/mcL 08/28/2024 12:38 EST [place] Absolute 0.5 K/mcL 08/28/2024 12:38 EST Eos Absolute 0.3 K/mcL 08/28/2024 12:38 EST Baso Absolute 0.1 K/mcL 08/28/2024 12:38 EST Slide Review Not Indicated 08/28/2024 12:38 EST ESR, Westergren 17 mm/hr 08/28/2024 12:38 EST Sodium Level 136 mmol/L 08/28/2024 12:38 EST Potassium Level 4.0 mmol/L 08/28/2024 12:38 EST Chloride Level 106 mmol/L 08/28/2024 12:38 EST CO2 23 mmol/L 08/28/2024 12:38 EST Alk Phos 76 IntlUnit/L 08/28/2024 12:38 EST AST 13 IntlUnit/L 08/28/2024 12:38 EST ALT 10 IntlUnit/L 08/28/2024 12:38 EST BUN 6 mg/dL 08/28/2024 12:38 EST Glucose Level 91 mg/dL 08/28/2024 12:38 EST Creatinine Level 0.60 mg/dL 08/28/2024 12:38 EST BUN/Creat Ratio 10.0 08/28/2024 12:38 EST eGFR CKD-EPI 118 mL/min/1.73 m2 08/28/2024 12:38 EST Calcium Level 9.0 mg/dL 08/28/2024 12:38 EST Protein Total 7.5 g/dL 08/28/2024 12:38 EST Albumin Level 4.3 g/dL 08/28/2024 12:38 EST Globulin 3.2 g/dL 08/28/2024 12:38 EST A/G Ratio 1.3 g/dL 08/28/2024 12:38 EST Bilirubin Total 0.5 mg/dL 08/28/2024 12:38 EST Anion Gap 7.0 08/28/2024 12:38 EST Osmolality 269 mOsm/kg 08/28/2024 12:38 EST hCG Qual Serum Negative 08/28/2024 12:38 EST Estimated Creatinine Clearance 142.49 mL/min 08/28/2024 13:08 EST U Amph Scrn NEG 08/28/2024 12:23 EST U Renetta Scrn NEG 08/28/2024 12:23 EST U Benzodia Scrn NEG 08/28/2024 12:23 EST U Buprenorph Scr NEG 08/28/2024 12:23 EST U Cocaine Scrn NEG 08/28/2024 12:23 EST U Fentanyl Scr NEGATIVE 08/28/2024 12:23 EST U TCA Scr POS 08/28/2024 12:23 EST U THC Scr POS 08/28/2024 12:23 EST U mAMP Scr NEG 08/28/2024 12:23 EST U Methadone Scr NEG 08/28/2024 12:23 EST U Opiate Scrn NEG 08/28/2024 12:23 EST U Oxy Scrn NEG 08/28/2024 12:23 EST U PCP Scrn NEG 08/28/2024 12:23 EST Urine Srce Clean Catch 08/28/2024 12:23 EST UA Color YELLOW. 08/28/2024 12:23 EST UA Appear CLEAR. 08/28/2024 12:23 EST UA Glucose NEGATIVE 08/28/2024 12:23 EST UA Bili NEGATIVE 08/28/2024 12:23 EST UA Ketones NEGATIVE 08/28/2024 12:23 EST UA Spec Grav 1.010 08/28/2024 12:23 EST UA Blood NEGATIVE 08/28/2024 12:23 EST UA pH 7.00 08/28/2024 12:23 EST UA Protein NEGATIVE 08/28/2024 12:23 EST UA Urobilinogen 0.2 08/28/2024 12:23 EST UA Nitrite NEGATIVE 08/28/2024 12:23 EST UA Leuk Est NEGATIVE 08/28/2024 12:23 EST Patient/Plastic Surgery Coordinator Signature Patient Name:BUTTS DOTTIE Shetty I have received this information and my questions have been answered. Patient/Plastic Surgery Coordinator Name: Patient/Plastic Surgery Coordinator Signature: Relationship to Patient: Witness Name/Signature: Date: Electronically Signed on: 08/28/2024 13:28 ESTSigned by:HELIO Patient Care team information Care Team Personnel Name: FLORENTIN MANZANARES APRN Position: No Access Member Role: Primary Care Physician Address: [address] [place] [address] Care Team Related Persons Name: NANCY BUTTS I Name: MARTHA GUERRERO Insurance Providers Guarantor name: DOTTIE BUTTS Health Plan Information #: 1 Payer: [employer] RICARDO Member Number: [id number] Policy Number: [employer] Health Plan Information #: 2 Payer: [employer]BA BLUE Member Number: [id number] Policy Number: [place] Health Plan Information #: 3 [address]ayer: [facility] Member Number: NA Policy Number: NA
--- OUTSIDE RECORDS SUMMARY | 2024-10-20 11:45 | XMS_ITS | Continuity of Care Document ---
Author Organization [facility] Ambulatory [facility] Address [address] [place] [address] Care Team Providers Care Gopherman Name Role Phone FLORENTIN MANZANARES APRN Primary Care Physician Encounter [facility] NBR [id number] Date(s): 10/15/24 - 10/15/24 [facility] [address] [place], [place] [address] Encounter Diagnosis Influenza(Discharge Diagnosis) - 10/15/24 Discharge Disposition: Home or Self Care Attending Physician: WAQAS Chapa Encounter Type: Clinic Allergies, Adverse Reactions, Alerts Substance Criticality Severity Reaction Reaction Severity Status clindamycin Unable to assess criticality Unknown Anaphylaxis Vomiting Active penicillins High criticality Severe A ctive traMADol High criticality Severe Act keke Zolpidem Tartrate 1 Unable to assess criticality Unknown Parasomnia Active traZODone High criticality Severe Act keke 1sleep eating, sleep posturing Assessment and Plan Extracted from: Title:[facility] office Visit Note Author:WAQAS Araujo Date:10/15/24 1.??Influenza??J11.1 ??Patient with most likely influenza given exposure, symptoms. ??Recommend starting Tamiflu given chronic illness. ??Start prednisone she typically requires this when she becomes ill. ??Recheck if not improving emergency room if worse. ??Recommend using inhaler with spacer and spacing her inhalations at least 1 minute apart. Ordered: Tamiflu 75 mg oral capsule, 75 mg = 1 cap, Oral, BID, X 5 days, # 10 cap, 0 Refill(s), 10/20/24 14:33:00 EST, Pharmacy: [facility], 160, cm, 08/28/24 11:24:00 EST, Height, 70.31, kg, 10/15/24 14:11:00 EST, Weight Dosing predniSONE 20 mg oral tablet, 40 mg = 2 tab, Oral, Daily, X 5 days, # 10 tab, 0 Refill(s), 10/20/24 14:33:00 EST, Pharmacy: [facility], 160, cm, 08/28/24 11:24:00 EST, Height, 70.31, kg, 10/15/24 14:11:00 EST, Weight Dosing ?? Future Appointments Future Scheduled Tests Radiology* MRI Brain w/o Contrast 10/21/24 * MG Mammo Screening Bilateral 06/30/24 Medications acetaZOLAMIDE 250 mg oral tablet 0 Refill(s) Start Date: 10/15/24 Status: Ordered Repeat number: 1 amitriptyline 25 mg oral tablet 0 Refill(s) Start Date: 07/29/23 Status: Ordered Repeat number: 1 azithromycin 250 mg oral tablet See Instructions, Oral, Daily, Take 2 tabs on day 1 and 1 tab on day 2-5, # 6 tab, 0 Refill(s), Pharmacy: [facility], 160, cm, 08/28/24 11:24:00 EST, Height, 70.31, kg, 09/29/24 9:46:00 EST, Weight Dosing Start Date: 09/29/24 Status: Ordered Quantity: 6.0 Unit: tab Repeat number: 1 Indication: Unspecified acute lower respiratory infection azithromycin 250 mg oral tablet 0 Refill(s) Start Date: 07/29/23 Status: Ordered Repeat number: 1 cephalexin 500 mg oral capsule 0 Refill(s) Start Date: 07/29/23 Status: Ordered Repeat number: 1 citalopram 40 mg oral tablet 40 mg = 1 tab, Oral, Daily, # 30 tab, 0 Refill(s) Start Date: 07/29/23 Status: Ordered Quantity: 30.0 Unit: tab Repeat number: 1 doxycycline hyclate 100 mg oral capsule 100 mg = 1 cap, Oral, BID, # 14 cap, 0 Refill(s), Pharmacy: [facility], 160, cm, 08/28/24 11:24:00 EST, Height, 70.31, kg, 09/29/24 9:46:00 EST, Weight Dosing Start Date: 09/29/24 Stop Date: 10/06/24 Status: Ordered Quantity: 14.0 Unit: cap Repeat number: 1 Indication: Unspecified acute lower respiratory infection erythromycin 0.5% ophthalmic ointment 0 Refill(s) Start Date: 07/29/23 Status: Ordered Repeat number: 1 ketorolac 10 mg oral tablet 10 mg = 1 tab, Oral, every 6 hr, PRN as needed for pain, not to exceed 40 mg/day and 5 days duration for all dose forms, # 12 cap, 0 Refill(s), Pharmacy: [facility], 162, cm, 11/12/23 8:16:00 EST, Height, 69, kg, 11/12/23 8:19:00 EST, Weight Dosing Start Date: 11/12/23 Status: Ordered Quantity: 12.0 Unit: cap Repeat number: 1 Indication: Dorsalgia, unspecified neomycin/polymyxin B/dexamethasone 3.5 mg-10,000 units-1 mg/mL ophthalmic suspension 1 drops, Eye-Both, every 4 hr, # 5 mL, 0 Refill(s) Start Date: 07/29/23 Status: Ordered Quantity: 5.0 Unit: mL Repeat number: 1 ondansetron 4 mg oral tablet, disintegrating 4 mg = 1 tab, Oral, every 6 hr, PRN as needed for nausea/vomiting, # 16 tab, 0 Refill(s), Pharmacy:[facility], 162, cm, 11/12/23 8:16:00 EST, Height, 69, kg, 11/12/23 8:19:00 EST, WeightDosing Start Date: 11/12/23 Status: Ordered Quantity: 16.0 Unit: tab Repeat number: 1 Indication: Dorsalgia, unspecified predniSONE 20 mg oral tablet 40 mg = 2 tab, Oral, Daily, X 5 days, # 10 tab, 0 Refill(s), 10/20/24 1:33:00 PM 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 TECH, Pharmacy: [facility], 160, cm, 08/28/24 11:24:00 EST, Height, 70.31, kg, 10/15/24 14:11:00 EST, Weight Dosing Start Date: 10/15/24 Stop Date: 10/20/24 Status: Ordered Quantity: 10.0 Unit: tab Repeat number: 1 Indication: Influenza due to unidentified influenza virus with other respiratory manifestations predniSONE 20 mg oral tablet 40 mg = 2 tab, Oral, Daily, # 10 tab, 0 Refill(s), Pharmacy: [facility], 160, cm, 08/28/24 11:24:00 EST, Height, 70.31, kg, 09/29/24 9:46:00 EST, Weight Dosing Start Date: 09/29/24 Stop Date: 10/04/24 Status: Ordered Quantity: 10.0 Unit: tab Repeat number: 1 Indication: Unspecified acute lower respiratory infection predniSONE 20 mg oral tablet 0 Refill(s) Start Date: 07/29/23 Status: Ordered Repeat number: 1 PROCHLORPERAZINE 5 MG TABLET PROCHLORPERAZINE 5 MG TABLET, 0 Refill(s) Start Date: 10/15/24 Status: Ordered Repeat number: 1 Tamiflu 75 mg oral capsule 75 mg = 1 cap, Oral, BID, X 5 days, # 10 cap, 0 Refill(s), 10/20/24 1:33:00 PM JANITORIAL TECH, Pharmacy: [facility], 160, cm, 08/28/24 11:24:00 EST, Height, 70.31, kg, 10/15/24 14:11:00 EST, Weight Dosing Start Date: 10/15/24 Stop Date: 10/20/24 Status: Ordered Quantity: 10.0 Unit: cap Repeat number: 1 Indication: Influenza due to unidentified influenza virus with other respiratory manifestations topiramate 25 mg oral tablet 0 Refill(s) Start Date: 10/15/24 Status: Ordered Repeat number: 1 Vitamin B-12 1000 mcg oral tablet 0 Refill(s) Start Date: 10/15/24 Status: Ordered Repeat number: 1 Problem List Condition Confirmation Course Effective Dates [...] Spinal stenosis of cervical region Confirmed Active Vital Signs Most recent to oldest [Reference Range]: 1 Temperature Tympanic [36.6-38.1 Deg C] 3 6.8 Deg C (10/15/24 2:00 PM) Peripheral Pulse Rate [60-100 bpm] 130 b pm *HI* (10/15/24 2:00 PM) Blood Pressure [90-120/60-80 mmHg] 110/7 2mmHg (10/15/24 2:00 PM) Mean Arterial Pressure, Cuff [65-140 mmH g] 85 mmHg (10/15/24 2:00 PM) Weight 70.31 kg (10/15/24 2:00 PM) Weight Measured (lbs) 155.007 lb (10/15/24 2:00 PM) Weight Dosing 70.310 kg (10/15/24 2:00 PM) Social History Social History Type Response Tobacco Tobacco use status u nknown Tobacco Use:. Sex Sex Representation Female (finding) Physician Outpatient Note * WAQAS Chapa: PERFORM Event Display: Office Clinic Note Physician Authored Date: [id number] DOTTIE BUTTS :1985 Age:39 years Sex:Female Visit Date:10/15/2024 Primary Care Physician: FLORENTIN MANZANARES APRN Chief Complaint child dx with flu a friday, today mom presents with cough, SOB( also has asthma) cant find neb, used inhaler, didnt help much, Runny nose, body achs, sore throat, fever (101). PIPE and apeitite. History of Present Illness Patient with exposure to influenza. ??Started symptoms 2 days ago. ??Cough, body aches, chills, sweats, wheezing. ??She knows asthma exacerbated. ??Has been using her inhaler.?? Denies any vomiting, diarrhea. ??Otherwise well. Physical Exam Vitals & Measurements T:??36.8?C ??(Tympanic)?? HR:??130??(Peripheral)?? BP:??110/72?? SpO2:??97%?? WT:??70.31??kg?? General: Alert and oriented, well nourished, no acute distress. Lungs: Clear to auscultation, non-labored respiration.?? Occasional wheeze Heart: Normal rate, regular rhythm, no murmur, gallop?? Abdomen: Soft, non-tender, non-distended, no masses. Skin: Skin is warm, dry, no rashes or lesions in examined areas. Neurologic: Awake, alert and oriented X3, normal cognition and interaction. Psychiatric: Cooperative, appropriate mood and affect. Assessment/Plan 1.??Influenza??J11.1 ??Patient with most likely influenza given exposure, symptoms. ??Recommend starting Tamiflu given chronic illness. ??Start prednisone she typically requires this when she becomes ill. ??Recheck if not improving emergency room if worse. ??Recommend using inhaler with spacer and spacing her inhalations at least 1 minute apart. Ordered: Tamiflu 75 mg oral capsule, 75 mg = 1 cap, Oral, BID, X 5 days, # 10 cap, 0 Refill(s), 10/20/24 14:33:00 EST, Pharmacy: [facility], 160, cm, 08/28/24 11:24:00 EST, Height, 70.31, kg, 10/15/24 14:11:00 EST, Weight Dosing predniSONE 20 mg oral tablet, 40 mg = 2 tab, Oral, Daily, X 5 days, # 10 tab, 0 Refill(s), 10/20/2513:33:00 EST, Pharmacy: [facility], 160, cm, 08/28/24 11:24:00 EST, Height, 70.31, kg, 10/15/24 14:11:00 EST, Weight Dosing ?? 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 Medications acetaZOLAMIDE 250 mg oral tablet amitriptyline 25 mg oral tablet azithromycin 250 mg oral tablet, See Instructions, Oral, Daily, Take 2 tabs on day 1 and 1 tab on day 2-5 azithromycin 250 mg oral tablet cephalexin 500 mg oral capsule citalopram 40 mg oral tablet, 40 mg= 1 tab, Oral, Daily doxycycline hyclate 100 mg oral capsule, 100 mg= 1 cap, Oral, BID erythromycin 0.5% ophthalmic ointment ketorolac 10 mg oral tablet, 10 mg= 1 tab, Oral, every 6 hr, PRN, not to exceed 40 mg/day and 5 days duration for all dose forms neomycin/polymyxin B/dexamethasone 3.5 mg-10,000 units-1 mg/mL ophthalmic suspension, 1 drops, Eye-Both, every 4 hr ondansetron 4 mg oral tablet, disintegrating, 4 mg= 1 tab, Oral, every 6 hr, PRN predniSONE 20 mg oral tablet, 40 mg= 2 tab, Oral, Daily predniSONE 20 mg oral tablet, 40 mg= 2 tab, Oral, Daily predniSONE 20 mg oral tablet PROCHLORPERAZINE 5 MG TABLET Tamiflu 75 mg oral capsule, 75 mg= 1 cap, Oral, BID topiramate 25 mg oral tablet Vitamin B-12 1000 mcg oral tablet Allergies penicillins traMADol traZODone Zolpidem Tartrate??(Parasomnia) clindamycin??(Anaphylaxis, Vomiting) Social History Alcohol Never Electronic Cigarette/Vaping Electronic Cigarette Use: Unknown/not obtained. Substance Use Current, Marijuana Tobacco Tobacco use status unknown Tobacco Use:. Electronically Signed on 10/15/2024 14:38 EST WAQAS Chapa Patient Care team information Care Team Personnel Name: FLORENTIN MANZANARES APRN Position: No Access Member Role: Primary Care Physician Address: [address] [place] [address] Telecom: Care Team Related Persons Name: NANCY BUTTS I Name: MARTHA GUERRERO Insurance Providers Guarantor name: DOTTIE BUTTS Health Plan Information #: 1 Payer: [employer] Member Number: [id number] Policy Number: NA Group Number: [id number] Health Plan Information #: 2 Payer: DENTON SILVA Member Number: NA Policy Number: NA Group Number: NA Health Plan Information #: 3 Payer: BC BS Member Number: [id number] Policy Number: NA Group Number: NA
--- OUTSIDE RECORDS SUMMARY | 2024-10-20 11:45 | XMS_ITS | Continuity of Care Document ---
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 Role Phone FLORENTIN MANZANARES APRN Primary Care Physician Encounter [facility] NBR [id number] Date(s): 11/12/23 - 11/12/[address] [address]- Encounter Diagnosis Musculoskeletal back pain(Discharge Diagnosis) - 11/12/23 Musculoskeletal pain(Discharge Diagnosis) - 11/12/23 Discharge Disposition: Home or Self Care Attending Physician: Manuel Gotti MD Admitting Physician: Manuel Gotti MD Allergies, Adverse Reactions, Alerts Substance Reaction Severity Status clindamycin Anaphylaxis Vomiting Unknown Active penicillins Severe Active Zolpidem Tartrate 1 Parasomnia Unknown Active traZODone Severe Active traMADol Severe Active 1sleep eating, sleep posturing Assessment and Plan Extracted from: Title:ED Provider Note Author:Manuel Gotti MD Date:11/12/23 1.??Musculoskeletal back bharti n??M54.9 Orders: C-Reactive Protein, Blood, Stat, 11/12/23 8:28:00 EST, Once, Nurse collect Creatine Kinase, Blood, Stat, 11/12/23 8:28:00 EST, Once, Nurse collect Sedimentation Rate (ESR), Blood, Stat, 11/12/23 8:29:00 EST, Once, Nurse collect Urinalysis with Micro if Indicated and Culture if Indicated, Urine, Stat Collect, 11/12/23 9:17:00 EST, Once, Nurse collect, Print Label Care transferred to Dr. Greer with the patient in stable condition Diagnosis musculoskeletal back pain Diagnostic Tests Pending * Urinalysis with Micro if Indicated and Culture if Indicated 11/12/23 Medications amitriptyline 25 mg oral tablet 0 [...] forms, # 12 cap, 0 Refill(s), Pharmacy: [facility], 162, cm, 11/12/23 8:16:00 EST, [...] for nausea/vomiting, # 16 tab, 0 Refill(s), Pharmacy:[facility], 162, cm, 11/12/23 8:16:00 EST, Height, 69, kg, 11/12/23 8:19:00 EST, WeightDosing Start Date: 11/12/23 Status: Ordered predniSONE 20 mg oral tablet 0 Refill(s) Start Date: 07/29/23 Status: Ordered Mental Status 11/12/23 Eye Opening Response Mitch Spontaneous ly Best Verbal Response Leonidas Oriented Best Motor Response Leonidas Obeys comman ds Mitch Coma Score 15 Problem List Condition Confirmation Course Effective Dates [...] Confirmed Active Results Laboratory List Name Date C-Reactive Protein 11/12/23 CBC w/ Diff 11/12/23 Creatine Kinase 11/12/23 Sedimentation Rate (ESR) 11/12/23 Urinalysis with Micro if Indicated and C ulture if Indicated 11/12/23 Automated Diff 11/12/23 Most recent to oldest [Reference Range]: 1 WBC [4.8-10.8 K/mcL] 7.8 K/mcL (11/12/23 8:46 AM) RBC [4.20-5.40 Million/mcL] 4.96 Million /mcL (11/12/23 8:46 AM) Neutro Auto [42.2-75.2 %] 60.1 % (11/12/23 8:46 AM) Lymph Auto [20.5-51.1 %] 29.2 % (11/12/23 8:46 AM) Jasper Auto [1.7-9.3 %] 5.0 % (11/12/23 8:46 AM) Basophil Auto [0.0-0.8 %] 0.9 % *HI* (11/12/23 8:46 AM) UA Color [Yellow] Yellow (11/12/23 8:46 AM) Baso Absolute [0.0-0.2 K/mcL] 0.1 K/mcL (11/12/23 8:46 AM) MCV [81.0-99.0 fL] 90.8 fL (11/12/23 8:46 AM) UA Urobilinogen [0.2] 0.2 (11/12/23 8:46 AM) UA Bili [Negative] Small *ABN* (11/12/23 8:46 AM) CRP [<=10.0 mg/L] 5.3 mg/L (11/12/23 8:46 AM) UA Ketones [Negative] 40 *ABN* (11/12/23 8:46 AM) MCHC [32.0-37.0 g/dL] 34.4 g/dL (11/12/23 8:46 AM) UA Leuk Est [Negative] Negative (11/12/23 8:46 AM) Lymph Absolute [1.2-3.4 K/mcL] 2.3 K/mcL (11/12/23 8:46 AM) UA Nitrite [Negative] Negative (11/12/23 8:46 AM) UA Glucose [Negative] Negative (11/12/23 8:46 AM) Hct [37.0-47.0 %] 45.0 % (11/12/23 8:46 AM) Jasper Absolute [0.1-0.6 K/mcL] 0.4 K/mcL (11/12/23 8:46 AM) UA Protein [Negative] Negative (11/12/23 8:46 AM) MCH [27.0-31.0 pg] 31.2 pg *HI* (11/12/23 8:46 AM) Neutro Absolute [1.4-6.5 K/mcL] 4.7 K/mc L (11/12/23 8:46 AM) Hgb [12.0-16.0 g/dL] 15.5 g/dL (11/12/23 8:46 AM) UA Blood [Negative] Negative (11/12/23 8:46 AM) MPV [7.4-10.4 fL] 7.5 fL (11/12/23 8:46 AM) UA Spec Grav [1.001-1.030] 1.010 (11/12/23 8:46 AM) Platelets [130-400 K/mcL] 304 K/mcL (11/12/23 8:46 AM) Eos Absolute [0.0-0.2 K/mcL] 0.4 K/mcL *HI* (11/12/23 8:46 AM) UA pH [5.00-9.00] 7.50 (11/12/23 8:46 AM) UA Appear [Clear] Clear (11/12/23 8:46 AM) RDW-CV [11.5-14.5 %] 13.0 % (11/12/23 8:46 AM) Urine Srce Clean Catch (11/12/23 8:46 AM) Eos, Auto [0.00-3.00 %] 4.80 % *HI* (11/12/23 8:46 AM) CK [30-223 unit/L] 37 unit/L (11/12/23 8:46 AM) ESR, Westergren [0-20 mm/hr] 10 mm/hr (11/12/23 8:46 AM) Vital Signs Most recent to oldest [Reference Range]: 1 Temperature Temporal Artery [36-38 Deg C ] 36.5 Deg C (11/12/23 8:07 AM) Peripheral Pulse Rate [60-100 bpm] 102 b pm *HI* (11/12/23 8:07 AM) Respiratory Rate [12-24 br/min] 16 br/mi n (11/12/23 8:07 AM) Blood Pressure [90-140/60-90 mmHg] 112/7 5mmHg (11/12/23 8:07 AM) Mean Arterial Pressure, Cuff [65-140 mmH g] 87 mmHg (11/12/23 8:07 AM) Weight 69 kg (11/12/23 8:07 AM) Weight Dosing 69.000 kg (11/12/23 8:07 AM) Height 162 cm (11/12/23 8:07 AM) Body Mass Index 26.29 kg/m2 (11/12/23 8:07 AM) Social History Social History Type Response Tobacco Tobacco use status u nknown Tobacco Use:. Sex Hospital Discharge Instructions Patient Education 11/12/2023 09:37:08 Musculoskeletal Pain Musculoskeletal Pain Musculoskeletal pain refers to aches and pains in your bones, joints, muscles, and the tissues thatsurround them. This pain can occur in any part of the body. It can last for a short time (acute) ora long time (chronic). A physical exam, lab tests, and imaging studies may be done to find the cause of your musculoskeletal pain. Follow these instructions at home: Lifestyle ??? Try to control or lower your stress levels. Stress increases muscle tension and can worsen musculoskeletal pain. It is important to recognize when you are anxious or stressed and learn ways to manage it. This may include: ??? Meditation or yoga. ??? Cognitive or behavioral therapy. ??? Acupuncture or massage therapy. ??? You may continue all activities unless the activities cause more pain. When the pain gets better, slowly resume your normal activities. Gradually increase the intensity and duration of your activities or exercise. Managing pain, stiffness, and swelling ??? Treatment may include medicines for pain and inflammation that are taken by mouth or applied tothe skin. Take arzi-xdl-fsiigtw and prescription medicines only as told by your health care provider. ??? When your pain is severe, bed rest may be helpful. Lie or sit in any position that is comfortable, but get out of bed and walk around at least every couple of hours. ??? If directed, apply heat to the affected area as often as told by your health care provider. Usethe heat source that your health care provider recommends, such as a moist heat pack or a heating pad. ??? Place a towel between your skin and the heat source. ??? Leave the heat on for 20???30 minutes. ??? Remove the heat if your skin turns bright red. This is especially important if you are unable to feel pain, heat, or cold. You may have a greater risk of getting burned. ??? If directed, put ice on the painful area. To do this: ??? Put ice in a plastic bag. ??? Place a towel between your skin and the bag. ??? Leave the ice on for 20 minutes, 2???3 times a day. ??? Remove the ice if your skin turns bright red. This is very important. If you cannot feel pain, heat, or cold, you have a greater risk of damage to the area. General instructions ??? Your health care provider may recommend that you see a physical therapist. This person can helpyou come up with a safe exercise program. ??? If told by your health care provider, do physical therapy exercises to improve movement and strength in the affected area. ??? Keep all follow-up visits. This is important. This includes any physical therapy visits. Contact a health care provider if: ??? Your pain gets worse. ??? Medicines do not help ease your pain. ??? You cannot use the part of your body that hurts, such as your arm, leg, or neck. ??? You have trouble sleeping. ??? You have trouble doing your normal activities. Get help right away if: ??? You have a new injury and your pain is worse or different. ??? You feel numb or you have tingling in the painful area. Summary ??? Musculoskeletal pain refers to aches and pains in your bones, joints, muscles, and the tissues that surround them. ??? This pain can occur in any part of the body. ??? Your health care provider may recommend that you see a physical therapist. This person can helpyou come up with a safe exercise program. Do any exercises as told by your physical therapist. ??? Lower your stress level. Stress can worsen musculoskeletal pain. Ways to lower stress may include meditation, yoga, cognitive or behavioral therapy, acupuncture, and massage therapy. This information is not intended to replace advice given to you by your health care provider. Make sure you discuss any questions you have with your health care provider. Document Revised: 01/04/2021 Document Reviewed: 12/13/2020 [employer] Patient Education ?? 2022 [employer]. Physician Emergency department Note * Manuel Gotti MD: PERFORM Event Display: ED Note Physician Authored Date: [id number] DOTTIE BUTTS :1985 Age:38 years Sex:Female Visit Date:11/12/2023 Primary Care Physician: FLORENTIN MANZANARES APRN Basic Information Time Seen: Manuel Gotti MD / 11/12/2023 08:10 Chief Complaint Pt arrives with complaints of back and neck pain upon waking up this morning. Pt has hx of neck problems. Pt states she also has headache and is nauseas History Of Present Illness: 38-year-old female??well-known to me confidently not presents to the emergency department awakening with back and neck pain. ??She has experienced this in the past but not as??bothersome or severe. ??She states the pain is over her??lower thoracic area bilaterally and centrally with radiation to her trapezius and neck bilaterally. ??It feels muscular. ??She is very confident it is not pulmonary. ??Does hurt more when she takes a deep breath but in the muscles not in the lungs. ??She isadherent no hemoptysis, respiratory symptoms,??or??fever. ??She has had no calf or leg swelling or leg pain. ??There is no radiation of the pain??inferiorly. ??She has no abdominal pain, normal bowelmovements no urinary symptoms. Review of Systems: Constitutional:??No fevers, chills, sweats Eye:??No recent visual complaints ENT:??No ear pain, nasal congestion, sore throat Respiratory:??No shortness of breath, cough Cardiovascular:??No chest pain, palpitations, syncope Gastrointestinal:??No nausea, vomiting, diarrhea, constipation Genitourinary:??No hematuria, or other concerning urinary symptoms Integumentary:??No rash, pruritus, or significant skin complaints Neurologic:??Alert, grossly oriented, no focal neurological complaints, able to give a history and consents to examination Psychiatric:??No new onset functionally impairing, anxiety, depression Physical Exam Vitals & Measurements T:??36.5?C ??(Temporal Artery)?? HR:??102??(Peripheral)?? RR:??16?? BP:??112/75?? SpO2:??97%?? HT:??162??cm?? WT:??69??kg?? BMI:??26.29?? Pain Score:??8?? O2 Therapy:??Room air?? Physical exam reveals an alert interactive female in no distress with unremarkable vital signs other than mildly elevated blood pressure. ??Head neck exams unremarkable. ??She has full range of motion of her neck but complains of pain at extremes of lateral rotation flexion and extension primarily in the mid thoracic and cervical spine area.?? She has no adenopathy or JVD. ??The chest is clear without wheezes or crackles. ??The heart sounds are normal without murmur or extra sound. ??Abdomen issoft nontender. ??She has marked tenderness with percussion or palpation over her posterior chest bilaterally as well as over her thoracic??and cervical spine areas.?? This pain is increased with movement. Medical Decision Making: Patient appears to have musculoskeletal??bilateral??back pain.?? We discussed options including treatment, watchful waiting, and limited workup to rule out more severe conditions.?? After discussion the patient wished to proceed with??inflammatory markers, CPK, urinalysis??and CBC.?? These had not returned by the time of??transfer. ??I transferred her care to Dr. Greer??who would review the??laboratory findings. ??She was given naproxen 500 mg and cyclobenzaprine 5 mg. Procedure No Qualifying Data Assessment/Plan 1.??Musculoskeletal back pain??M54.9 Orders: C-Reactive Protein, Blood, Stat, 11/12/23 8:28:00 EST, Once, Nurse collect Creatine Kinase, Blood, Stat, 11/12/23 8:28:00 EST, Once, Nurse collect Sedimentation Rate (ESR), Blood, Stat, 11/12/23 8:29:00 EST, Once, Nurse collect Urinalysis with Micro if Indicated and Culture if Indicated, Urine, Stat Collect, 11/12/23 9:17:00 EST, Once, Nurse collect, Print Label Care transferred to Dr. Greer with the patient in stable condition Diagnosis musculoskeletal back pain Medication Reconciliation Unchanged amitriptyline (amitriptyline 25 mg oral tablet) ?? azithromycin (azithromycin 250 mg oral tablet) ?? cephalexin (cephalexin 500 mg oral capsule) ?? citalopram (citalopram 40 mg oral tablet)1 tab Oral (given by mouth) every day. ?? erythromycin ophthalmic (erythromycin 0.5% ophthalmic ointment) ?? neomycin/polymyxin B/dexamethasone ophthalmic (neomycin/polymyxin B/dexamethasone 3.5 mg-10,000 units-1 mg/mL ophthalmic suspension)1 Drops Both eyes every 4 hours. ?? predniSONE (predniSONE 20 mg oral tablet) [...] pocket of tympanic membrane of both ears Medication Administration Given cyclobenzaprine, 5 mg, Oral naproxen, 500 mg, Oral Allergies penicillins traMADol traZODone Zolpidem Tartrate??(Parasomnia) clindamycin??(Anaphylaxis, Vomiting) Social History Electronic Cigarette/Vaping Electronic Cigarette Use: Unknown/not obtained. Tobacco Tobacco use status unknown Tobacco Use:. Lab Results CBC and Differential?? LATEST RESULTS?? WBC?? 11/12/23 08:46?? 7.8?? RBC?? 11/12/23 08:46?? 4.96?? Hgb?? 11/12/23 08:46?? 15.5?? Hct?? 11/12/23 08:46?? 45.0?? MCV?? 11/12/23 08:46?? 90.8?? MCH?? 11/12/23 08:46?? 31.2 ??High?? MCHC?? 11/12/23 08:46?? 34.4?? RDW-CV?? 11/12/23 08:46?? 13.0?? Platelets?? 11/12/23 08:46?? 304?? MPV?? 11/12/23 08:46?? 7.5?? Neutro Auto?? 11/12/23 08:46?? 60.1?? Lymph Auto?? 11/12/23 08:46?? 29.2?? Jasper Auto?? 11/12/23 08:46?? 5.0?? Eos, Auto?? 11/12/23 08:46?? 4.80 ??High?? Basophil Auto?? 11/12/23 08:46?? 0.9 ??High?? Neutro Absolute?? 11/12/23 08:46?? 4.7?? Lymph Absolute?? 11/12/23 08:46?? 2.3?? Jasper Absolute?? 11/12/23 08:46?? 0.4?? Eos Absolute?? 11/12/23 08:46?? 0.4 ??High?? Baso Absolute?? 11/12/23 08:46?? 0.1? UA Macroscopic?? LATEST RESULTS?? Urine Srce?? 11/12/23 08:46?? Clean Catch?? UA Color?? 11/12/23 08:46?? Yellow?? UA Appear?? 11/12/23 08:46?? Clear?? UA Glucose?? 11/12/23 08:46?? Negative?? UA Bili?? 11/12/23 08:46?? Small Abnormal?? UA Ketones?? 11/12/23 08:46?? 40 Abnormal?? UA Spec Grav?? 11/12/23 08:46?? 1.010?? UA Blood?? 11/12/23 08:46?? Negative?? UA pH?? 11/12/23 08:46?? 7.50?? UA Protein?? 11/12/23 08:46?? Negative?? UA Urobilinogen?? 11/12/23 08:46?? 0.2?? UA Nitrite?? 11/12/23 08:46?? Negative?? UA Leuk Est?? 11/12/23 08:46?? Negative? Electronically Signed on 11/12/23 09:35 AM Manuel Gotti MD Emergency department Discharge instructions * Joni Cardenas MD: PERFORM Event Display: ED Discharge Information Authored Date: [id number] DOTTIE BUTTS :1985 Age:38 years Sex:Female Visit Date:11/12/2023 Primary Care Physician: FLORENTIN MANZANARES APRN Discharge Instructions We would like to thank you for allowing us to assist you with your healthcare needs. The following includes patient education materials and information regarding your injury/illness. Diagnosis from Today's Visit Musculoskeletal back pain Musculoskeletal pain Discharge Vitals Temperature??(Temporal Artery) 97.7 ??F (36.5 ??C) Heart Rate??(Peripheral) 102 Respiratory Rate?? 16 Blood Pressure?? 112/75?? SpO2?? 97% Height?? 63.78 in (162 cm) Weight?? 152.14 lb (69 kg) BMI?? 26.29 Allergies penicillins traMADol traZODone Zolpidem Tartrate??(Parasomnia) clindamycin??(Anaphylaxis, Vomiting) What to Do Next Instructions from Your Care Team Toradol as prescribed for pain. ??Zofran as prescribed for nausea. ??Rest. ??Stay hydrated. ??Follow-up with regular doctor or return for worsening or changing symptoms You were treated today on an emergency [...] How Much When Why Instructions Next Dose New ketorolac (ketorolac 10 mg oral tablet) 1 tab Oral (given by mouth) Every 6 hours as needed for as needed for pain Musculoskeletal back pain not to exceed 40 mg/ day and 5 days duration for all dose forms ?? Pickup at [facility] New ondansetron (ondansetron 4 mg oral tablet, disintegrating) 1 tab Oral (given by mouth) Every 6 hours as needed for as needed for nausea/vomiting Musculoskeletal back pain Pickup at [facility] Unchanged amitriptyline (amitriptyline 25 mg oral tablet) Unchanged azithromycin (azithromycin 250 mg oral tablet) Unchanged cephalexin (cephalexin 500 mg oral capsule) Unchanged citalopram (citalopram 40 mg oral tablet) 1 tab Oral (given by mouth) Every day Unchanged erythromycin ophthalmic (erythromycin 0.5% ophthalmic ointment) Unchanged neomycin/ polymyxin B/ dexamethasone ophthalmic (neomycin/ polymyxin B/ dexamethasone 3.5mg-10,000 units-1 mg/ mL ophthalmic suspension) 1 Drops Both eyes Every 4 hours Unchanged predniSONE (predniSONE 20 mg oral tablet) Pharmacy Information [facility]: [address], [place] [id number] [phone] Education Materials Musculoskeletal Pain Musculoskeletal pain refers to aches and pains in your bones, joints, muscles, and the tissues thatsurround them. This pain can occur in any part of the body. It can last for a short time (acute) ora long time (chronic). A physical exam, lab tests, and imaging studies may be done to find the cause of your musculoskeletal pain. Follow these instructions at home: Lifestyle ? Try to control or lower your stress levels. Stress increases muscle tension and can worsen musculoskeletal pain. It is important to recognize when you are anxious or stressed and learn ways to manageit. This may include: ? Meditation or yoga. ? Cognitive or behavioral therapy. ? Acupuncture or massage therapy. ? You may continue all activities unless the activities cause more pain. When the pain gets better, slowly resume your normal activities. Gradually increase the intensity and duration of your activities or exercise. Managing pain, stiffness, and swelling ? Treatment may include medicines for pain and inflammation that are taken by mouth or applied to theskin. Take eykl-iqp-[id number] and prescription medicines only as told by your health care provider. ? When your pain is severe, bed rest may be helpful. Lie or sit in any position that is comfortable, but get out of bed and walk around at least every couple of hours. ? If directed, apply heat to the affected area as often as told by your health care provider. Use theheat source that your health care provider recommends, such as a moist heat pack or a heating pad. ? Place a towel between your skin and the heat source. ? Leave the heat on for 20???30 minutes. ? Remove the heat if your skin turns bright red. This is especially important if you are unable to feel pain, heat, or cold. You may have a greater risk of getting burned. ? If directed, put ice on the painful area. To do this: ? Put ice in a plastic bag. ? Place a towel between your skin and the bag. ? Leave the ice on for 20 minutes, 2???3 times a day. ? Remove the ice if your skin turns bright red. This is very important. If you cannot feel pain, heat, or cold, you have a greater risk of damage to the area. General instructions ? Your health care provider may recommend that you see a physical therapist. This person can help youcome up with a safe exercise program. ? If told by your health care provider, do physical therapy exercises to improve movement and strength in the affected area. ? Keep all follow-up visits. This is important. This includes any physical therapy visits. Contact a health care provider if: ? Your pain gets worse. ? Medicines do not help ease your pain. ? You cannot use the part of your body that hurts, such as your arm, leg, or neck. ? You have trouble sleeping. ? You have trouble doing your normal activities. Get help right away if: ? You have a new injury and your pain is worse or different. ? You feel numb or you have tingling in the painful area. Summary ? Musculoskeletal pain refers to aches and pains in your bones, joints, muscles, and the tissues thatsurround them. ? This pain can occur in any part of the body. ? Your health care provider may recommend that you see a physical therapist. This person can help youcome up with a safe exercise program. Do any exercises as told by your physical therapist. ? Lower your stress level. Stress can worsen musculoskeletal pain. Ways to lower stress may include meditation, yoga, cognitive or behavioral therapy, acupuncture, and massage therapy. This information is not intended to replace advice given to you by your health care provider. Make sure you discuss any questions you have with your health care provider. Document Revised: 01/04/2021 Document Reviewed: 12/13/2020 [employer] Patient Education ?? 2022 [employer] Tests Performed Medications and Immunizations Administered Given Sodium Chloride 0.9%, 1000 mL, Medication Bolus cyclobenzaprine, 5 mg, Oral morphine, 2 mg, IV naproxen, 500 mg, Oral ondansetron, 4 mg, IV Push Lab Test Name Test Result Date/Time WBC 7.8 K/mcL 11/12/2023 08:46 EST RBC 4.96 Million/mcL 11/12/2023 08:46 EST Hgb 15.5 g/dL 11/12/2023 08:46 EST Hct 45.0 % 11/12/2023 08:46 EST MCV 90.8 fL 11/12/2023 08:46 EST MCH 31.2 pg 11/12/2023 08:46 EST MCHC 34.4 g/dL 11/12/2023 08:46 EST RDW-CV 13.0 % 11/12/2023 08:46 EST Platelets 304 K/mcL 11/12/2023 08:46 EST MPV 7.5 fL 11/12/2023 08:46 EST Neutro Auto 60.1 % 11/12/2023 08:46 EST Lymph Auto 29.2 % 11/12/2023 08:46 EST Jasper Auto 5.0 % 11/12/2023 08:46 EST Eos, Auto 4.80 % 11/12/2023 08:46 EST Basophil Auto 0.9 % 11/12/2023 08:46 EST Neutro Absolute 4.7 K/mcL 11/12/2023 08:46 EST Lymph Absolute 2.3 K/mcL 11/12/2023 08:46 EST Jasper Absolute 0.4 K/mcL 11/12/2023 08:46 EST Eos Absolute 0.4 K/mcL 11/12/2023 08:46 EST Baso Absolute 0.1 K/mcL 11/12/2023 08:46 EST ESR, Westergren 10 mm/hr 11/12/2023 08:46 EST CRP 5.3 mg/L 11/12/2023 08:46 EST CK 37 unit/L 11/12/2023 08:46 EST Urine Srce Clean Catch 11/12/2023 08:46 EST UA Color YELLOW. 11/12/2023 08:46 EST UA Appear CLEAR. 11/12/2023 08:46 EST UA Glucose NEGATIVE 11/12/2023 08:46 EST UA Bili SMALL Clinitek 11/12/2023 08:46 EST UA Ketones 40 11/12/2023 08:46 EST UA Spec Grav 1.010 11/12/2023 08:46 EST UA Blood NEGATIVE 11/12/2023 08:46 EST UA pH 7.50 11/12/2023 08:46 EST UA Protein NEGATIVE 11/12/2023 08:46 EST UA Urobilinogen 0.2 11/12/2023 08:46 EST UA Nitrite NEGATIVE 11/12/2023 08:46 EST UA Leuk Est NEGATIVE 11/12/2023 08:46 EST Patient/Green Jobs Trainer Signature Patient Name:DOTTIE BUTTS I have received this information and my questions have been answered. Patient/Green Jobs Trainer Name: Patient/Green Jobs Trainer Signature: Relationship to Patient: Witness Name/Signature: Date: Electronically Signed on: 11/12/2023 10:37 ESTSigned by:KEVAN Patient Care team information Care Team Personnel Name: FLORENTIN MANZANARES APRN Position: No Access Member Role: Primary Care Physician Address: Address: [address] [place] [id number] Care Team Related Persons Name: NANCY BUTTS I Address: Home [address], [place] [id number] [facility] Name: MARTHA GUERRERO Address: Home [address] [facility] [id number]
--- OUTSIDE RECORDS SUMMARY | 2024-10-20 11:45 | XMS_ITS | Continuity of Care Document ---
Author Organization [facility] Address [address] [place] [id number] Care Team Providers Care Managing Principal Name Role Phone FLORENTIN MANZANARES APRN Primary Care Physician Encounter [facility] NBR [id number] Date(s): 04/26/24 - 04/26/[address] [address] Encounter Diagnosis Encounter for screening for cardiovascular disorders(Final) - Encounter for screening for other suspected endocrine disorder(Final) - Vitamin B12 deficiency anemia due to intrinsic factor deficiency(Final) - Discharge Disposition: Home or Self Care Attending Physician: FLORENTIN MANZANARES APRN Admitting Physician: FLORENTIN MANZANARES APRN Referring Physician: FLORENTIN MANZANARES APRN Allergies, Adverse Reactions, Alerts Substance Reaction Severity Status clindamycin Anaphylaxis Vomiting Unknown Active penicillins Severe Active Zolpidem Tartrate 1 Parasomnia Unknown Active traZODone Severe Active traMADol Severe Active 1sleep eating, sleep posturing Medications amitriptyline 25 mg oral tablet 0 [...] forms, # 12 cap, 0 Refill(s), Pharmacy: [facility], 162, cm, 11/12/23 8:16:00 EST, Height, [...] for nausea/vomiting, # 16 tab, 0 Refill(s), Pharmacy:[facility], 162, cm, 11/12/23 8:16:00 EST, Height, [...] Laboratory List Name Date CBC w/ Diff (CBC, with Auto Differential (CPT-04541)) 04/26/24 Comprehensive Metabolic Pane l (Comprehensive Metabolic Profile, Fasting (CMP) (CPT-31159)) 04/26/24 Lipid Panel (Lipid Profile (CPT-59791)) 04/26/24 TSH w/ Rflx to Free T4 (TSH (with Reflex FT4) (CPT-93051)) 04/26/24 Automated Diff 04/26/24 Most recent to oldest [Reference Range]: 1 WBC [4.8-10.8 K/mcL] 6.8 K/mcL (04/26/24: AM) RBC [4.20-5.40 Million/mcL] 4.89 Million /mcL (04/26/24: AM) Neutro Auto [42.2-75.2 %] 47.3 % (04/26/24: AM) Lymph Auto [20.5-51.1 %] 39.5 % (04/26/24 10: AM) [place] Auto [1.7-9.3 %] 6.4 % (04/26/24: AM) Basophil Auto [0.0-0.8 %] 0.9 % *HI* (04/26/24: AM) BUN [7-25 mg/dL] 5 mg/dL *LOW* (04/26/24 AM) Cholesterol Total [<=200 mg/dL] 214 mg/d L *HI* (04/26/24: AM) LDL 130.0 mg/dL 1 *NA* (04/26/24 AM) Glucose Level [70-109 mg/dL] 93 mg/dL (04/26/24: AM) Potassium Level [3.5-5.1 mmol/L] 3.7 mmo l/L (04/26/24: AM) Baso Absolute [0.0-0.2 K/mcL] 0.1 K/mcL (04/26/24: AM) MCV [81.0-99.0 fL] 90.2 fL (04/26/24: AM) HDL [23-92 mg/dL] 40 mg/dL (04/26/24: AM) AST [13-39 IntlUnit/L] 13 IntlUnit/L (04/26/24 10: AM) ALT [7-52 IntlUnit/L] 10 IntlUnit/L (04/26/24: AM) MCHC [32.0-37.0 g/dL] 34.6 g/dL (04/26/24: AM) Osmolality [275-295 mOsm/kg] 269 mOsm/kg *LOW* (04/26/24 AM) Sodium Level [136-145 mmol/L] 136 mmol/L (04/26/24 10: AM) Chol/HDL 5.4 2 *NA* (04/26/24: AM) Lymph Absolute [1.2-3.4 K/mcL] 2.7 K/mcL (04/26/24: AM) Hct [37.0-47.0 %] 44.2 % (04/26/24 10: AM) Triglycerides [<=150 mg/dL] 218 mg/dL *HI* (04/26/24 AM) Calcium Level [8.6-10.3 mg/dL] 9.0 mg/dL (04/26/24 10: AM) [place] Absolute [0.1-0.6 K/mcL] 0.4 K/mcL (04/26/24: AM) Albumin Level [3.5-5.7 g/dL] 4.3 g/dL (04/26/24: AM) Protein Total [6.4-8.9 g/dL] 6.8 g/dL (04/26/24: AM) MCH [27.0-31.0 pg] 31.2 pg *HI* (04/26/24 10: AM) Neutro Absolute [1.4-6.5 K/mcL] 3.2 K/mc L (04/26/24: AM) Bilirubin Total [0.3-1.0 mg/dL] 0.4 mg/d L (04/26/24: AM) Hgb [12.0-16.0 g/dL] 15.3 g/dL (04/26/24 10: AM) Alk Phos [34-104 IntlUnit/L] 84 IntlUnit /L (04/26/24 10: AM) MPV [7.4-10.4 fL] 7.2 fL *LOW* (04/26/24: AM) Platelets [130-400 K/mcL] 316 K/mcL (04/26/24: AM) CO2 [21-31 mmol/L] 25 mmol/L (04/26/24 10:26 AM) Eos Absolute [0.0-0.2 K/mcL] 0.4 K/mcL *HI* (04/26/24 10:26 AM) TSH [0.45-5.33 mcIntlUnit/mL] 0.55 mcInt lUnit/mL (04/26/24 10:26 AM) Chloride Level [98-107 mmol/L] 104 mmol/ L (04/26/24 10:26 AM) RDW-CV [11.5-14.5 %] 13.1 % (04/26/24 10:26 AM) A/G Ratio [1.0-2.5 g/dL] 1.7 g/dL (04/26/24 10:26 AM) BUN/Creat Ratio [8.0-20.0] 7.1 *LOW* (04/26/24 10:26 AM) Globulin [2.3-3.5 g/dL] 2.5 g/dL (04/26/24 10:26 AM) Creatinine Level [0.60-1.20 mg/dL] 0.70 mg/dL (04/26/24 10:26 AM) Anion Gap [3.0-12.0] 7.0 (04/26/24 10:26 AM) Eos, Auto [0.00-3.00 %] 5.90 % *HI* (04/26/24 10:26 AM) eGFR CKD-EPI [>=60 mL/min/1.73 m2] 114 m L/min/1.73 m2 (04/26/24 10:26 AM) 1Interpretive Data: Optimal: Less than 100 mg/dL Above Optimal: 100 - 129 mg/dL Borderline High: 130 - 159 mg/dL High: 160 - 189 mg/dL Very High: > or = 190 mg/dL 2Interpretive Data: RISK MALE FEMALE 1/2 average 3.4 3.3 Average 5.0 4.4 2x Average 9.6 7.1 3x Average 23.4 11.0 Social History Social History Type Response Tobacco Tobacco use status u nknown Tobacco Use:. Sex Patient Care team information Care Team Personnel Name: FLORENTIN MANZANARES APRN Position: No Access Member Role: Primary Care Physician Address: Address: [address] [place] [id number] Care Team Related Persons Name: NANCY BUTTS I Address: Home [address] [place] [phone] [facility] Name: MARTHA GUERRERO Address: [address] [phone]
--- OUTSIDE RECORDS SUMMARY | 2024-10-20 11:45 | XMS_ITS | Continuity of Care Document ---
Author Organization [facility] Address [address] [place] [id number] Care Team Providers Care Section Crews Activities Clerk Name Role Phone FLORENTIN MANZANARES APRN Primary Care Physician Encounter [facility] FIN NBR [id number] Date(s): 10/17/24 - 10/17/[address] [id number] Encounter Diagnosis Influenza A(Discharge Diagnosis) - 10/17/24 Asthma exacerbation(Discharge Diagnosis) - 10/17/24 Discharge Disposition: Home f/u External Provider Attending Physician: Fareed Diaz DO Admitting Physician: Fareed Diaz DO Encounter Type: Emergency Allergies, Adverse Reactions, Alerts Substance Criticality Severity Reaction Reaction Severity Status clindamycin Unable to assess criticality Unknown Anaphylaxis Vomiting Active penicillins High criticality Severe A ctive Zolpidem Tartrate 1 Unable to assess criticality Unknown Parasomnia Active traMADol High criticality Severe Act keke traZODone High criticality Severe Act keke 1sleep eating, sleep posturing Assessment and Plan Extracted from: Title:ED Provider Note Author:WAQAS Mohr Date:10/17/24 Assessment/Plan 1.??Influenza A??J10.1 ??Patient discharged home.?? Will continue supportive care refill of albuterol sent. ??Close PCP follow-up and strict return precautions with any??concerns with worsening dyspnea or uncontrolled fevers. Ordered: Albuterol (Eqv-ProAir HFA) 90 mcg/inh inhalation aerosol, 2 inh, Inhale, every 6 hr, X 30 days, # 6.7 g, 0 Refill(s), 11/16/24 12:26:00 EST, Pharmacy: [facility] #[id number], 160, cm, 10/17/24 10:22:00 EST, Height, 70.31, kg, 10/17/24 10:27:00 EST, Weight Dosing Dispense 1 spacer, Dispense 1 spacer, Dispense 1 spacer, Supply, See instructions, # 1 EA, 0 Refill(s), Pharmacy: [facility] #[id number] Discharge Patient, 10/17/24 12:48:00 EST, Home Independently ?? 2.??Asthma exacerbation??J45.901 Ordered: Albuterol (Eqv-ProAir HFA) 90 mcg/inh inhalation aerosol, 2 inh, Inhale, every 6 hr, X 30 days, # 6.7 g, 0 Refill(s), 11/16/24 12:26:00 EST, Pharmacy: [facility] #[id number], 160, cm, 10/17/24 10:22:00 EST, Height, 70.31, kg, 10/17/24 10:27:00 EST, Weight Dosing Dispense 1 spacer, Dispense 1 spacer, Dispense 1 spacer, Supply, See instructions, # 1 EA, 0 Refill(s), Pharmacy: [facility] #[id number] Discharge Patient, 10/17/24 12:48:00 EST, Home Independently ?? Orders: Ativan, 1 mg = 1 tab, Oral, Tab, Daily, First Dose: 10/17/24 12:00:00 EST, Routine Patient Education Influenza, Adult Asthma, Adult Follow Up With When Contact Information FLORENTIN MANZANARES APRN Within [address] [place] [phone] ?? Additional Instructions: Future Appointments Future Scheduled Tests Radiology* MRI Brain w/o Contrast 10/21/24 * MG Mammo Screening Bilateral 06/30/24 Mental Status 10/17/24 Eye Opening Response Mitch Spontaneous ly Best Verbal Response [place] Oriented Best Motor Response Mitch Obeys comman ds Mitch Coma Score 15 [...] Confirmed Active Results Laboratory List Name Date Basic Metabolic Panel (BMP) 10/17/24 Test Urine Qual 10/17/24 Urinalysis with Micro if Indicated and C ulture if Indicated 10/17/24 SARS-CoV-2 (COVID-19)/Flu/RSV (GeneXpert ) 10/17/24 Troponin-I High Sensitivity 10/17/24 CBC w/ Diff 10/17/24 Comprehensive Metabolic Panel (CMP) Automated Diff 10/17/24 Most recent to oldest [Reference Range]: 1 2 Estimated Creatinine Clearance 122.14 mL /min 1 (10/17/24 12:47 PM) 122.14 mL/min 2 (10/17/24 11:23 AM) WBC [4.8-10.8 K/mcL] 3.7 K/mcL *LOW* (10/17/24 10:49 AM) RBC [4.20-5.40 Million/mcL] 5.14 Million /mcL (10/17/24 10:49 AM) Neutro Auto [42.2-75.2 %] 51.5 % (10/17/24 10:49 AM) Lymph Auto [20.5-51.1 %] 32.4 % (10/17/24 10:49 AM) Travis Auto [1.7-9.3 %] 14.1 % *HI* (10/17/24 10:49 AM) Basophil Auto [0.0-0.8 %] 1.1 % *HI* (10/17/24 10:49 AM) BUN [7-25 mg/dL] 6 mg/dL *LOW* (10/17/24 12:24 PM) 6 mg/dL *LOW* (10/17/24 10:49 AM) UA Color LIGHT YELL *NA* (10/17/24 12:24 PM) Glucose Level [70-109 mg/dL] 105 mg/dL (10/17/24 12:24 PM) 99 mg/dL (10/17/24 10:49 AM) Potassium Level [3.5-5.1 mmol/L] 3.3 mmo l/L *LOW* (10/17/24 12:24 PM) 3.4 mmol/L *LOW* (10/17/24 10:49 AM) Baso Absolute [0.0-0.2 K/mcL] 0.0 K/mcL (10/17/24 10:49 AM) MCV [81.0-99.0 fL] 90.0 fL (10/17/24 10:49 AM) UA Urobilinogen [0.2] 0.2 (10/17/24 12:24 PM) UA Bili [Negative] Negative (10/17/24 12:24 PM) UA Ketones [Negative] Negative (10/17/24 12:24 PM) AST [13-39 IntlUnit/L] 14 IntlUnit/L (10/17/24 10:49 AM) ALT [7-52 IntlUnit/L] 11 IntlUnit/L (10/17/24 10:49 AM) MCHC [32.0-37.0 g/dL] 34.6 g/dL (10/17/24 10:49 AM) Osmolality [275-295 mOsm/kg] 266 mOsm/kg *LOW* (10/17/24 12:24 PM) 272 mOsm/kg *LOW* (10/17/24 10:49 AM) Sodium Level [136-145 mmol/L] 134 mmol/L *LOW* (10/17/24 12:24 PM) 137 mmol/L (10/17/24 10:49 AM) UA Leuk Est [Negative] Negative (10/17/24 12:24 PM) Lymph Absolute [1.2-3.4 K/mcL] 1.2 K/mcL (10/17/24 10:49 AM) UA Nitrite [Negative] Negative (10/17/24 12:24 PM) UA Glucose [Negative] Negative (10/17/24 12:24 PM) Hct [37.0-47.0 %] 46.3 % (10/17/24 10:49 AM) Calcium Level [8.6-10.3 mg/dL] 8.0 mg/dL *LOW* (10/17/24 12:24 PM) 8.7 mg/dL (10/17/24 10:49 AM) Travis Absolute [0.1-0.6 K/mcL] 0.5 K/mcL (10/17/24 10:49 AM) Albumin Level [3.5-5.7 g/dL] 4.0 g/dL (10/17/24 10:49 AM) Protein Total [6.4-8.9 g/dL] 7.1 g/dL (10/17/24 10:49 AM) UA Protein [Negative] Negative (10/17/24 12:24 PM) MCH [27.0-31.0 pg] 31.1 pg *HI* (10/17/24 10:49 AM) Neutro Absolute [1.4-6.5 K/mcL] 1.9 K/mc L (10/17/24 10:49 AM) Bilirubin Total [0.3-1.0 mg/dL] 0.3 mg/d L (10/17/24 10:49 AM) Hgb [12.0-16.0 g/dL] 16.0 g/dL (10/17/24 10:49 AM) Alk Phos [34-104 IntlUnit/L] 65 IntlUnit /L (10/17/24 10:49 AM) UA Blood [Negative] Negative (10/17/24 12:24 PM) MPV [7.4-10.4 fL] 7.6 fL (10/17/24 10:49 AM) UA Spec Grav [1.001-1.030] <=1.005 *NA* (10/17/24 12:24 PM) Platelets [130-400 K/mcL] 240 K/mcL (10/17/24 10:49 AM) CO2 [21-31 mmol/L] 20 mmol/L *LOW* (10/17/24 12:24 PM) 19 mmol/L *LOW* (10/17/24 10:49 AM) Eos Absolute [0.0-0.2 K/mcL] 0.0 K/mcL (10/17/24 10:49 AM) UA pH [5.00-9.00] 7.00 (10/17/24 12:24 PM) UA Appear [Clear] Clear (10/17/24 12:24 PM) Chloride Level [98-107 mmol/L] 105 mmol/ L (10/17/24 12:24 PM) 108 mmol/L *HI* (10/17/24 10:49 AM) RDW-CV [11.5-14.5 %] 13.4 % (10/17/24 10:49 AM) A/G Ratio [1.0-2.5 g/dL] 1.3 g/dL (10/17/24 10:49 AM) BUN/Creat Ratio [8.0-20.0] 8.6 (10/17/24 12:24 PM) 8.6 (10/17/24 10:49 AM) Globulin [2.3-3.5 g/dL] 3.1 g/dL (10/17/24 10:49 AM) Slide Review Not Indicated (10/17/24 10:49 AM) Urine Srce Clean Catch (10/17/24 12:24 PM) Creatinine Level [0.60-1.20 mg/dL] 0.70 mg/dL (10/17/24 12:24 PM) 0.70 mg/dL (10/17/24 10:49 AM) Troponin-I HS [<=12 ng/L] <2 ng/L 3 (10/17/24 10:50 AM) SARS-CoV-2(Covid19)PCR(GXper t COVFLURSV) [Negative] Negative (10/17/24 10:56 AM) Flu A (GXpert COVFLURSV) [Negative] Posi tive *ABN* (10/17/24 10:56 AM) RSV (GXpert COVFLURSV) [Negative] Negati ve (10/17/24 10:56 AM) Flu B (GXpert COVFLURSV) [Negative] Nega tive (10/17/24 10:56 AM) Anion Gap [3.0-12.0] 9.0 (10/17/24 12:24 PM) 10.0 (10/17/24 10:49 AM) Eos, Auto [0.00-3.00 %] 0.90 % (10/17/24 10:49 AM) U hCG Ql [Negative] Negative (10/17/24 12:24 PM) eGFR CKD-EPI [>=60 mL/min/1.73 m2] 114 m L/min/1.73 m2 (10/17/24 12:24 PM) 114 mL/min/1.73 m2 (10/17/24 10:49 AM) 1Result Comment: Calculated using method: Cockroft-Gault (Actual Weight) 2Result Comment: Calculated using method: Cockroft-Gault (Actual Weight) 3Interpretive Data: The Deana ACCESS high-sensitivity Troponin I (hsTNI) 99 percentile cutoffs forhealthy adults are 12 ng/L or less for females and 20 ng/L or less for males. SERIAL MEASUREMENT IS HIGHLY RECOMMENDED for the diagnosis or exclusion of Acute Coronary Syndromes(ACS). Please refer to the High-Sensitivity Troponin Algorithm 2022 for guidance. As with all markers of cardiac injury, elevations of hsTnI do not in and of themselves indicate thepresence of an ischemic mechanism. Many other disease states can be associated with elevations via mechanisms different from those that cause injury in patients with ACS. These include trauma (contusion, ablation, pacing); congestive heart failure; pulmonary embolism; kidney failure; and myocarditis. Clinical judgement is necessary to distinguish patients who have ischemic heart disease from those who do not. Radiology Reports * Exam Date Time Procedure Performing Provider Status 10/17/24 11:[address] Angio Chest Marii Haywood (Verified) Notes: (CT Angio Chest) Reason For Exam: Shortness of breath CT Angio Chest PROCEDURE INFORMATION: Exam: CTA Chest With Contrast Exam date and time: 10/17/2024 11:19 AM Age: 39 years old Clinical indication: Shortness of breath TECHNIQUE: Imaging protocol: Computed tomographic angiography of the chest with contrast. Exam focused on the arteries. [...] clinical indication); or iterative reconstruction. Contrast material: ISOVUE 370; Contrast volume: 100 ml; Contrast route: INTRAVENOUS (IV); COMPARISON: CT ANGIO NECK 08/28/2024 12:45 PM FINDINGS: Pulmonary arteries: Normal. No pulmonary emboli. Aorta: Unremarkable. No aortic aneurysm. No aortic dissection. Lungs: Unremarkable. No consolidation. No masses. Pleural spaces: Unremarkable. No pneumothorax. No pleural effusion. Heart: No coronary artery calcifications seen. No cardiomegaly. No pericardial effusion. Lymph nodes: Unremarkable. No enlarged lymph nodes. Bones/joints: Unremarkable. No acute fracture. Soft tissues: Unremarkable. IMPRESSION: No acute pulmonary embolism or other acute findings. THIS DOCUMENT HAS BEEN ELECTRONICALLY SIGNED BY BREN HOPPER MD on 10/17/2024 12:23 PM Final Signed by: Bren Hopper MD Signed (Electronic Signature): 10/17/2024 12:23 pm Vital Signs Most recent to oldest [Reference Range]: 1 2 3 Temperature Temporal Artery [36-38 Deg C] 36.3 Deg C (10/17/24 10:22 AM) Peripheral Pulse Rate [60-100 bpm] 119 bpm *HI* (10/17/24 11:55 AM) 126 bpm *HI* (10/17/24 11:18 AM) 117 bpm *HI* (10/17/24 10:57 AM) Heart Rate Monitored [60-100 bpm] 107 bpm *HI* (10/17/24 12:07 PM) 112 bpm *HI* (10/17/24 11:59 AM) 122 bpm *HI* (10/17/24 11:58 AM) Respiratory Rate [12-24 br/min] 17 br/min (10/17/24 11:55 AM) 23 br/min (10/17/24 11:18 AM) 13 br/min (10/17/24 10:57 AM) Blood Pressure [90-120/60-80 mmHg] 124/94mmHg *HI* (10/17/24 10:22 AM) Mean Arterial Pressure, Cuff [65-140 mmHg] 104 mmHg (10/17/24 10:22 AM) Weight 70.31 kg (10/17/24 10:22 AM) Weight Dosing 70.310 kg (10/17/24 10:22 AM) Height 160 cm (10/17/24 10:22 AM) Body Mass Index 27.46 kg/m2 (10/17/24 10:22 AM) Social History Social History Type Response Tobacco Tobacco use status u nknown Tobacco Use:. Sex Sex Representation Female (finding) Hospital Discharge Instructions Patient Education 10/17/2024 11:37:09 Influenza, Adult Influenza, Adult Influenza, also called the flu, is a viral infection that mainly affects the respiratory tract. This includes the lungs, nose, and throat. The flu spreads easily from person to person (is contagious). It causes common cold symptoms, along with high fever and body aches. What are the causes? This condition is caused by the influenza virus. You can get the virus by: ??? Breathing in droplets that are in the air from an infected person's cough or sneeze. ??? Touching something that has the virus on it (has been contaminated) and then touching your mouth, nose, or eyes. What increases the risk? The following factors may make you more likely to get the flu: ??? Not washing or sanitizing your hands often. ??? Having close contact with many people during cold and flu season. ??? Touching your mouth, eyes, or nose without first washing or sanitizing your hands. ??? Not getting an annual flu shot. You may have a higher risk for the flu, including serious problems, such as a lung infection (pneumonia), if you: ??? Are older than 65. ??? Are . ??? Have a weakened disease-fighting system (immune system). This includes people who have HIV or AIDS, are on chemotherapy, or are taking medicines that reduce (suppress) the immune system. ??? Have a long-term (chronic) illness, such as heart disease, kidney disease, diabetes, or lung disease. ??? Have a liver disorder. ??? Are severely overweight (morbidly obese). ??? Have anemia. ??? Have asthma. What are the signs or symptoms? Symptoms of this condition usually begin suddenly and last 4???14 days. These may include: ??? Fever and chills. ??? Headaches, body aches, or muscle aches. ??? Sore throat. ??? Cough. ??? Runny or stuffy (congested) nose. ??? Chest discomfort. ??? Poor appetite. ??? Weakness or fatigue. ??? Dizziness. ??? Nausea or vomiting. How is this diagnosed? This condition may be diagnosed based on: ??? Your symptoms and medical history. ??? A physical exam. ??? Swabbing your nose or throat and testing the fluid for the influenza virus. How is this treated? If the flu is diagnosed early, you can be treated with antiviral medicine that is given by mouth (orally) or through an IV. This can help reduce how severe the illness is and how long it lasts. Taking care of yourself at home can help relieve symptoms. Your health care provider may recommend: ??? Taking afjy-amf-epxglqh medicines. ??? Drinking plenty of fluids. In many cases, the flu goes away on its own. If you have severe symptoms or complications, you may be treated in a hospital. Follow these instructions at home: Activity ??? Rest as needed and get plenty of sleep. ??? Stay home from work or school as told by your health care provider. Unless you are visiting your health care provider, avoid leaving home until your fever has been gone for 24 hours without taking medicine. Eating and drinking ??? Take an oral rehydration solution (ORS). This is a drink that is sold at pharmacies and retail stores. ??? Drink enough fluid to keep your urine pale yellow. ??? Drink clear fluids in small amounts as you are able. Clear fluids include water, ice chips, fruit juice mixed with water, and low-calorie sports drinks. ??? Eat bland, afkt-fp-jdubfq foods in small amounts as you are able. These foods include bananas, applesauce, rice, lean meats, toast, and crackers. ??? Avoid drinking fluids that contain a lot of sugar or caffeine, such as energy drinks, regular sports drinks, and soda. ??? Avoid alcohol. ??? Avoid spicy or fatty foods. General instructions ??? Take sabo-qmj-dgbvmar and prescription medicines only as told by your health care provider. ??? Use a cool mist humidifier to add humidity to the air in your home. This can make it easier to breathe. ??? When using a cool mist humidifier, clean it daily. Empty the water and replace it with clean water. ??? Cover your mouth and nose when you cough or sneeze. ??? Wash your hands with soap and water often and for at least 20 seconds, especially after you cough or sneeze. If soap and water are not available, use alcohol-based hand electric stove installer. ??? Keep all follow-up visits. This is important. How is this prevented? Get an annual flu shot. This is usually available in late summer, fall, or winter. Ask your health care provider when you should get your flu shot. ??? Avoid contact with people who are sick during cold and flu season. This is generally fall and winter. Contact a health care provider if: ??? You develop new symptoms. ??? You have: ??? Chest pain. ??? Diarrhea. ??? A fever. ??? Your cough gets worse. ??? You produce more mucus. ??? You feel nauseous or you vomit. Get help right away if you: ??? Develop shortness of breath or have difficulty breathing. ??? Have skin or nails that turn a bluish color. ??? Have severe pain or stiffness in your neck. ??? Develop a sudden headache or sudden pain in your face or ear. ??? Cannot eat or drink without vomiting. These symptoms may represent a serious problem that is an emergency. Do not wait to see if the symptoms will go away. Get medical help right away. Call your local emergency services (911 in the [place] Do not drive yourself to the hospital. Summary ??? Influenza, also called the flu, is a viral infection that primarily affects your respiratory tract. ??? Symptoms of the flu usually begin suddenly and last 4???14 days. ??? Getting an annual flu shot is the best way to prevent getting the flu. ??? Stay home from work or school as told by your health care provider. Unless you are visiting your health care provider, avoid leaving home until your fever has been gone for 24 hours without taking medicine. ??? Keep all follow-up visits. This is important. This information is not intended to replace advice given to you by your health care provider. Make sure you discuss any questions you have with your health care provider. Document Revised: 04/20/2021 Document Reviewed: 04/20/2021 [employer] Patient Education ?? 2022 [employer] ([employer]). 10/17/2024 11:36:49 Asthma, Adult Asthma, Adult Asthma is a long-term (chronic) condition that causes recurrent episodes in which the lower airwaysin the lungs become tight and narrow. The narrowing is caused by inflammation and tightening of thesmooth muscle around the lower airways. Asthma episodes, also called asthma attacks or asthma flares, may cause coughing, making high-pitched whistling sounds when you breathe, most often when you breathe out (wheezing), shortness of breath, and chest pain. The airways may produce extra mucus caused by the inflammation and irritation. During an attack, it can be difficult to breathe. Asthma attacks can range from minor to life-threatening. Asthma cannot be cured, but medicines and lifestyle changes can help control it and treat acute attacks. It is important to keep your asthma well controlled so the condition does not interfere with your daily life. What are the causes? This condition is believed to be caused by inherited (genetic) and environmental factors, but its exact cause is not known. What can trigger an asthma attack? Many things can bring on an asthma attack or make symptoms worse. These triggers are different for every person. Common triggers include: ??? Allergens and irritants like mold, dust, pet dander, cockroaches, pollen, air pollution, and chemical odors. ??? Cigarette smoke. ??? Weather changes and cold air. ??? Stress and strong emotional responses such as crying or laughing hard. ??? Certain medications such as aspirin or beta blockers. ??? Infections and inflammatory conditions, such as the flu, a cold, pneumonia, or inflammation of the nasal membranes (rhinitis). ??? Gastroesophageal reflux disease (GERD). What are the signs or symptoms? Symptoms may occur right after exposure to an asthma trigger or hours later and can vary by person.Common signs and symptoms include: ??? Wheezing. ??? Trouble breathing (shortness of breath). ??? Excessive nighttime or test desk trouble locator coughing. ??? Chest tightness. ??? Tiredness (fatigue) with minimal activity. ??? Difficulty talking in complete sentences. ??? Poor exercise tolerance. How is this diagnosed? This condition is diagnosed based on: ??? A physical exam and your medical history. ??? Tests, which may include: ??? Lung function studies to evaluate the flow of air in your lungs. ??? Allergy tests. ??? Imaging tests, such as X-rays. How is this treated? There is no cure, but symptoms can be controlled with proper treatment. Treatment usually involves: ??? Identifying and avoiding your asthma triggers. ??? Inhaled medicines. Two types are commonly used to treat asthma, depending on severity: ??? Controller medicines. These help prevent asthma symptoms from occurring. They are taken every day. ??? Fast-acting reliever or rescue medicines. These quickly relieve asthma symptoms. They are used as needed and provide short-term relief. ??? Using other medicines, such as: ??? Allergy medicines, such as antihistamines, if your asthma attacks are triggered by allergens. ??? Immune medicines (immunomodulators). These are medicines that help control the immune system. ??? Using supplemental oxygen. This is only needed during a severe episode. ??? Creating an asthma action plan. An asthma action plan is a written plan for managing and treating your asthma attacks. This plan includes: ??? A list of your asthma triggers and how to avoid them. ??? Information about when medicines should be taken and when their dosage should be changed. ??? Instructions about using a device called a peak flow meter. A peak flow meter measures how wellthe lungs are working and the severity of your asthma. It helps you monitor your condition. Follow these instructions at home: ??? Take kjhd-tba-wsjjold and prescription medicines only as told by your health care provider. ??? Stay up to date on all vaccinations as recommended by your healthcare provider, including vaccines for the flu and pneumonia. ??? Use a peak flow meter and keep track of your peak flow readings. ??? Understand and use your asthma action plan to address any asthma flares. ??? Do not smoke or allow anyone to smoke in your home. Contact a health care provider if: ??? You have wheezing, shortness of breath, or a cough that is not responding to medicines. ??? Your medicines are causing side effects, such as a rash, itching, swelling, or trouble breathing. ??? You need to use a reliever medicine more than 2???3 times a week. ??? Your peak flow reading is still at 50???79% of your personal best after following your action plan for 1 hour. ??? You have a fever and shortness of breath. Get help right away if: ??? You are getting worse and do not respond to treatment during an asthma attack. ??? You are short of breath when at rest or when doing very little physical activity. ??? You have difficulty eating, drinking, or talking. ??? You have chest pain or tightness. ??? You develop a fast heartbeat or palpitations. ??? You have a bluish color to your lips or fingernails. ??? You are light-headed or dizzy, or you faint. ??? Your peak flow reading is less than 50% of your personal best. ??? You feel too tired to breathe normally. These symptoms may be an emergency. Get help right away. Call 911. ??? Do not wait to see if the symptoms will go away. ??? Do not drive yourself to the hospital. Summary ??? Asthma is a long-term (chronic) condition that causes recurrent episodes in which the airways become tight and narrow. Asthma episodes, also called asthma attacks or asthma flares, can cause coughing, wheezing, shortness of breath, and chest pain. ??? Asthma cannot be cured, but medicines and lifestyle changes can help keep it well controlled and prevent asthma flares. ??? Make sure you understand how to avoid triggers and how and when to use your medicines. ??? Asthma attacks can range from minor to life-threatening. Get help right away if you have an asthma attack and do not respond to treatment with your usual rescue medicines. This information is not intended to replace advice given to you by your health care provider. Make sure you discuss any questions you have with your health care provider. Document Revised: 06/19/2022 Document Reviewed: 06/10/2022 [employer] Patient Education ?? 2022 [employer] ([employer]). Follow Up Care 10/17/2024 10:12:41 With:FLORENTIN MANZANARES APRN Address: [address] [place] [id number]- When:1 month Physician Emergency department Note * WAQAS Mohr: PERFORM Event Display: ED Note Physician Authored Date: [id number] DOTTIE BUTTS :1985 Age:39 years Sex:Female Visit Date:10/17/2024 Primary Care Physician: FLORENTIN MANZANARES APRN Basic Information Time Seen: WAQAS Mohr / 10/17/2024 10:17 Chief Complaint Patient in with complaints of shortness of breath since being diagnosed with the flu a couple of days ago. ??Taking Tamiflu/steriods. ??Also with rash on legs and arms. Tachypneic in triage. History Of Present Illness: This is a otherwise healthy asthmatic??39-year-old female here for concerns of a??pleuritic chest pain??and dyspnea.?Symptoms present for the past 3 days but worsening??this morning. ??Patient believes that she has influenza??as both her and daughter have tested positive for this. ??She was seen in urgent care??3 days ago and clinically diagnosed with influenza started on a prednisone and??Tamiflu. ??Patient notes that she has also developed a??rash on??the??upper right arm and bilateral thighs.?? Rash is not painful or pruritic and she is concerned about a drug??eruption. ??Has had prednisone multiple times before??with never??similar reaction.?Denies chance of is not on estrogen medication. ??Is an everyday smoker however has not had a cigarette in the past 4 days??because of her symptoms.?? No history of PE DVT. ??No??leg pain or swelling.?? Has been afebrile. Review of Systems: See HPI Physical Exam Vitals & Measurements T:??36.3?C ??(Temporal Artery)?? HR:??107??(Monitored)?? RR:??17?? BP:??124/94?? SpO2:??100%?? HT:??160??cm?? WT:??70.31??kg?? BMI:??27.46?? General: Patient is alert and engaging, appears well. Is in no acute distress. Speaking comfortablyin full sentences.?? Constitutional: No fevers, chills or diaphoresis.?? HEENT: Head normocephalic and atraumatic. Neck supple with FROM w/o lymphadenopathy or JVD. Tracheamidline.?? Respiratory: ??No obvious work of breathing, regular rate. BS equal b/l, diffuse expiratory wheezing.?? Cardiovascular: Heart regular rate and rhythm w/o murmurs, rubs or gallops. No peripheral edema present.?? Extremities: No obvious deformities. FROM.?? Integumentary: Skin warm and pink. No rashes or ecchymosis present.?? Neuro: CN III-XII grossly intact.?? Psychiatric: acting appropriate for age and circumstance. Normal mood without obvious ??affect.?? Medical Decision Making: Patient appears anxious but overall well in no acute distress. ??She is sitting comfortably??on thebed speaking in full sentences without any audible stridor or stridor.?? Her main concern is this rash on her arm??but states that she has also been having dyspnea for 3 days.?? Vitals obtained and reviewed patient is tachycardic however she is afebrile??respiratory rate of 23 and oxygen 100% on room air. Diffuse expiratory wheezing auscultated on exam. EKG obtained??showing sinus tachycardia at a rate of 119??no obvious??arrhythmia or??ischemia. ??Patient given DuoNeb,??took her dose of prednisone prior to arrival.?? Labs obtained.?As patient isan everyday smoker??having pleuritic chest pain dyspnea and tachycardia??I discussed with her??obtaining a CT a??to rule out a PE and she is in agreement with this.?? Suspect however that tachycardiais??explained from the virus and anxiety. ??Patient is most concerned about the rash on her arm which looks more urticarial in nature likely from??medication reaction and plans to stop the Tamiflu??will continue with the prednisone. ??Her last dose of Tamiflu was this morning.?? She is not having any anaphylactic??reaction no angioedema??swelling of the lips or face??or any stridor or stridor. Patient remains anxious and has had Ativan before with success so she was given a dose after returning from CT scan. Liter of fluids given and??BMP repeated??after. ??Initial troponin less than 2 ACS unlikely. Tachycardia did resolve with fluids and Ativan. ??CT of the??chest did not show any evidence of a PE??pneumonia or other acute??findings. She is feeling significant improvement while in the emergency department. ??Believe that she is safe for discharge home will continue with the prednisone and I sent in refill for albuterol inhaler with a spacer. Procedure No Qualifying Data Assessment/Plan 1.??Influenza A??J10.1 ??Patient discharged home.?? Will continue supportive care refill of albuterol sent. ??Close PCP follow-up and strict return precautions with any??concerns with worsening dyspnea or uncontrolled fevers. Ordered: Albuterol (Eqv-ProAir HFA) 90 mcg/inh inhalation aerosol, 2 inh, Inhale, every 6 hr, X 30 days, # 6.7 g, 0 Refill(s), 11/16/24 12:26:00 EST, Pharmacy: [facility] #[id number], 160, cm, 10/17/24 10:22:00 EST,Height, 70.31, kg, 10/17/24 10:27:00 EST, Weight Dosing Dispense 1 spacer, Dispense 1 spacer, Dispense 1 spacer, Supply, See instructions, # 1 EA, 0 Refill(s), Pharmacy: [facility] #[id number] Discharge Patient, 10/17/24 12:48:00 EST, Home Independently ?? 2.??Asthma exacerbation??J45.901 Ordered: Albuterol (Eqv-ProAir HFA) 90 mcg/inh inhalation aerosol, 2 inh, Inhale, every 6 hr, X 30 days, # 6.7 g, 0 Refill(s), 11/16/24 12:26:00 EST, Pharmacy: [facility] #[id number], 160, cm, 10/17/24 10:22:00 EST,Height, 70.31, kg, 10/17/24 10:27:00 EST, Weight Dosing Dispense 1 spacer, Dispense 1 spacer, Dispense 1 spacer, Supply, See instructions, # 1 EA, 0 Refill(s), Pharmacy: [facility] #[id number] Discharge Patient, 10/17/24 12:48:00 EST, Home Independently ?? Orders: Ativan, 1 mg = 1 tab, Oral, Tab, Daily, First Dose: 10/17/24 12:00:00 EST, Routine Patient Education Influenza, Adult Asthma, Adult Follow Up With When Contact Information FLORENTIN MANZANARES APRN Within 1 month [address] [place] [address]- Additional Instructions: Medication Reconciliation New Prescription albuterol (Albuterol (Eqv-ProAir HFA) 90 mcg/inh inhalation aerosol)2 Inhalation Inhale (breathe in) every 6 hours for 30 Days. Refills: 0. ?? inhaler spacer, assist device (Dispense 1 spacer)Dispense 1 spacer. Refills: 0. ?? Unchanged acetaZOLAMIDE (acetaZOLAMIDE 250 mg oral tablet) ?? amitriptyline (amitriptyline 25 mg oral tablet) ?? azithromycin (azithromycin 250 mg oral tablet)Take 2 tabs on day 1 and 1 tab on day 2-5; Oral (given by mouth). Refills: 0. ?? azithromycin (azithromycin 250 mg oral tablet) ?? cephalexin (cephalexin 500 mg oral capsule) ?? citalopram (citalopram 40 mg oral tablet)1 tab Oral (given by mouth) every day. ?? cyanocobalamin (Vitamin B-12 1000 mcg oral tablet) ?? doxycycline (doxycycline hyclate 100 mg oral capsule)1 Capsules Oral (given by mouth) 2 times a dayfor 7 Days. Refills: 0. ?? erythromycin ophthalmic (erythromycin 0.5% ophthalmic ointment) [...] as needed for nausea/vomiting. Refills: 0. ?? oseltamivir (Tamiflu 75 mg oral capsule)1 Capsules Oral (given by mouth) 2 times a day for 5 Days. Refills: 0. ?? Other Prescription (PROCHLORPERAZINE 5 MG TABLET) ?? predniSONE (predniSONE 20 mg oral tablet) ?? predniSONE (predniSONE 20 mg oral tablet)2 tab Oral (given by mouth) every day for 5 Days. Refills:0. ?? predniSONE (predniSONE 20 mg oral tablet)2 tab Oral (given by mouth) every day for 5 Days. Refills:0. ?? topiramate (topiramate 25 mg oral tablet) Problem List/Past Medical History [...] membrane of both ears Medication Administration Given Sodium Chloride 0.9%, 1000 mL, Hydration Bolus Ativan, 1 mg, Oral ipratropium-albuterol 0.5 mg-2.5 mg/3 mL inhalation solution, 3 mL, Nebulized Inhalation Allergies penicillins traMADol traZODone Zolpidem Tartrate??(Parasomnia) clindamycin??(Anaphylaxis, Vomiting) Social History Alcohol Never Electronic Cigarette/Vaping Electronic Cigarette Use: Unknown/not obtained. Substance Use Current, Marijuana Tobacco Tobacco use status unknown Tobacco Use:. Diagnostic Results CT Angio Chest 10/17/2024 12:[address] Angio Chest ?? 10/17/24 11:19:47 PROCEDURE INFORMATION: Exam: CTA Chest With Contrast Exam date and time: 10/17/2024 11:19 AM Age: 39 years old Clinical indication: Shortness of breath ?? TECHNIQUE: Imaging protocol: Computed tomographic angiography of the chest with contrast. Exam focused on the arteries. [...] clinical indication); or iterative reconstruction. Contrast material: ISOVUE 370; Contrast volume: 100 ml; Contrast route: INTRAVENOUS (IV); ?? COMPARISON: CT ANGIO NECK 08/28/2024 12:45 PM ?? FINDINGS: Pulmonary arteries: Normal. No pulmonary emboli. Aorta: Unremarkable. No aortic aneurysm. No aortic dissection. ?? Lungs: Unremarkable. No consolidation. No masses. Pleural spaces: Unremarkable. No pneumothorax. No pleural effusion. Heart: No coronary artery calcifications seen. No cardiomegaly. No pericardial effusion. Lymph nodes: Unremarkable. No enlarged lymph nodes. ?? Bones/joints: Unremarkable. No acute fracture. Soft tissues: Unremarkable. ?? IMPRESSION: No acute pulmonary embolism or other acute findings. ? THIS DOCUMENT HAS BEEN ELECTRONICALLY SIGNED BY BREN HOPPER MD on 10/17/2024 12:23 PM ?? Signed By: Bren Hopper MD Lab Results CBC and Differential?? LATEST RESULTS?? HISTORICAL RESULTS?? WBC?? 10/17/24 10:49?? 3.7 ??Low?? 08/28/24?? 5.9?? RBC?? 10/17/24 10:49?? 5.14?? 08/28/24?? 4.82?? Hgb?? 10/17/24 10:49?? 16.0?? 08/28/24?? 15.4?? Hct?? 10/17/24 10:49?? 46.3?? 08/28/24?? 43.0?? MCV?? 10/17/24 10:49?? 90.0?? 08/28/24?? 89.4?? MCH?? 10/17/24 10:49?? 31.1 ??High?? 08/28/24?? 32.0 ??High?? MCHC?? 10/17/24 10:49?? 34.6?? 08/28/24?? 35.8?? RDW-CV?? 10/17/24 10:49?? 13.4?? 08/28/24?? 13.3?? Platelets?? 10/17/24 10:49?? 240?? 08/28/24?? 336?? MPV?? 10/17/24 10:49?? 7.6?? 08/28/24?? 7.3 ??Low?? Neutro Auto?? 10/17/24 10:49?? 51.5?? 08/28/24?? 56.4?? Lymph Auto?? 10/17/24 10:49?? 32.4?? 08/28/24?? 28.9?? Travis Auto?? 10/17/24 10:49?? 14.1 ??High?? 08/28/24?? 8.7?? Eos, Auto?? 10/17/24 10:49?? 0.90?? 08/28/24?? 4.50 ??High?? Basophil Auto?? 10/17/24 10:49?? 1.1 ??High?? 08/28/24?? 1.5 ??High?? Neutro Absolute?? 10/17/24 10:49?? 1.9?? 08/28/24?? 3.3?? Lymph Absolute?? 10/17/24 10:49?? 1.2?? 08/28/24?? 1.7?? Travis Absolute?? 10/17/24 10:49?? 0.5?? 08/28/24?? 0.5?? Eos Absolute?? 10/17/24 10:49?? 0.0?? 08/28/24?? 0.3 ??High?? Baso Absolute?? 10/17/24 10:49?? 0.0?? 08/28/24?? 0.1?? Slide Review?? 10/17/24 10:49?? Not Indicated?? 08/28/24?? Not Indicated? Routine Chemistry?? LATEST RESULTS?? HISTORICAL RESULTS?? Sodium Level?? 10/17/24 12:24?? 134 ??Low?? 08/28/24?? 136?? Potassium Level?? 10/17/24 12:24?? 3.3 ??Low?? 08/28/24?? 4.0?? Chloride Level?? 10/17/24 12:24?? 105?? 08/28/24?? 106?? CO2?? 10/17/24 12:24?? 20 ??Low?? 08/28/24?? 23?? Alk Phos?? 10/17/24 10:49?? 65?? 08/28/24?? 76?? AST?? 10/17/24 10:49?? 14?? 08/28/24?? 13?? ALT?? 10/17/24 10:49?? 11?? 08/28/24?? 10?? BUN?? 10/17/24 12:24?? 6 ??Low?? 08/28/24?? 6 ??Low?? Glucose Level?? 10/17/24 12:24?? 105?? 08/28/24?? 91?? Creatinine Level?? 10/17/24 12:24?? 0.70?? 08/28/24?? 0.60?? BUN/Creat Ratio?? 10/17/24 12:24?? 8.6?? 08/28/24?? 10.0?? eGFR CKD-EPI?? 10/17/24 12:24?? 114?? 08/28/24?? 118?? Calcium Level?? 10/17/24 12:24?? 8.0 ??Low?? 08/28/24?? 9.0?? Protein Total?? 10/17/24 10:49?? 7.1?? 08/28/24?? 7.5?? Albumin Level?? 10/17/24 10:49?? 4.0?? 08/28/24?? 4.3?? Globulin?? 10/17/24 10:49?? 3.1?? 08/28/24?? 3.2?? A/G Ratio?? 10/17/24 10:49?? 1.3?? 08/28/24?? 1.3?? Bilirubin Total?? 10/17/24 10:49?? 0.3?? 08/28/24?? 0.5?? Anion Gap?? 10/17/24 12:24?? 9.0?? 08/28/24?? 7.0?? Osmolality?? 10/17/24 12:24?? 266 ??Low?? 08/28/24?? 269 ??Low? Cardiac Isoenzymes?? LATEST RESULTS?? Troponin-I HS?? 10/17/24 10:50?? <2? Testing?? LATEST RESULTS?? U hCG Ql?? 10/17/24 12:24?? Negative? Timed Urine Chemistry?? LATEST RESULTS?? HISTORICAL RESULTS?? Estimated Creatinine Clearance?? 10/17/24 12:47?? 122.14?? 08/28/24?? 142.49? UA Macroscopic?? LATEST RESULTS?? HISTORICAL RESULTS?? Urine Srce?? 10/17/24 12:24?? Clean Catch?? 08/28/24?? Clean Catch?? UA Color?? 10/17/24 12:24?? LIGHT YELL?? 08/28/24?? Yellow?? UA Appear?? 10/17/24 12:24?? Clear?? 08/28/24?? Clear?? UA Glucose?? 10/17/24 12:24?? Negative?? 08/28/24?? Negative?? UA Bili?? 10/17/24 12:24?? Negative?? 08/28/24?? Negative?? UA Ketones?? 10/17/24 12:24?? Negative?? 08/28/24?? Negative?? UA Spec Grav?? 10/17/24 12:24?? <=1.005?? 08/28/24?? 1.010?? UA Blood?? 10/17/24 12:24?? Negative?? 08/28/24?? Negative?? UA pH?? 10/17/24 12:24?? 7.00?? 08/28/24?? 7.00?? UA Protein?? 10/17/24 12:24?? Negative?? 08/28/24?? Negative?? UA Urobilinogen?? 10/17/24 12:24?? 0.2?? 08/28/24?? 0.2?? UA Nitrite?? 10/17/24 12:24?? Negative?? 08/28/24?? Negative?? UA Leuk Est?? 10/17/24 12:24?? Negative?? 08/28/24?? Negative? Infectious Disease?? LATEST RESULTS?? SARS-CoV-2(Covid19)PCR([facility]Xpert COVFLURSV)?? 10/17/24 10:56?? Negative?? Flu A (GXpert COVFLURSV)?? 10/17/24 10:56?? Positive Abnormal?? Flu B ([facility]Xpert COVFLURSV)?? 10/17/24 10:56?? Negative?? RSV ([facility]Xpert COVFLURSV)?? 10/17/24 10:56?? Negative? Electronically Signed on 10/17/2024 13:47 EST [facility] Discharge instructions * [facility]: PERFORM Event Display: ED Discharge Information Authored Date: [id number] DOTTIE BUTTS Sena :1985 Age:39 years Sex:Female Visit Date:10/17/2024 Primary Care Physician: FLORENTIN MANZANARES APRN Discharge Instructions We would like to thank you for allowing us to assist you with your healthcare needs. The following includes patient education materials and information regarding your injury/illness. Diagnosis from Today's Visit Influenza A Asthma exacerbation Discharge Vitals Temperature??(Temporal Artery) 97.3 ??F (36.3 ??C) Heart Rate??(Monitored) 107 Respiratory Rate?? 17 Blood Pressure?? 124/94?? SpO2?? 100% Height?? 62.99 in (160 cm) Weight?? 155.03 lb (70.31 kg) BMI?? 27.46 Allergies penicillins traMADol traZODone Zolpidem Tartrate??(Parasomnia) clindamycin??(Anaphylaxis, Vomiting) What to Do Next Instructions from Your Care Team You were seen here for??asthma exacerbation??due to??the flu.?? I would continue with your course of prednisone??previously prescribed and I have also sent you in??a refill of your albuterol inhaler with spacer.?? Please continue to stay well rested and hydrated??and can take Tylenol and ibuprofen??as needed. ??Please have follow-up with primary care??and return with any concerns of??difficulty??breathing uncontrolled fevers or dehydration. You Need to Schedule the Following Appointments Follow Up with??FLORENTIN MANZANARES APRN When:??Within 1 month Where: [address] [place], [place] [address] [address]- Upcoming Scheduled Appointments 2024 7:00 AM EST ?? Where: [facility] Diagnostic Imaging Status: Confirmed You were treated today on an emergency [...] Much When Why Instructions Next Dose New albuterol (Albuterol (Eqv- ProAir HFA) 90 mcg/ inhinhalation aerosol) 2 Inhalation Inhale (breathe in) Every 6 hours Influenza A Asthma exacerbation Duration: 30 Days Pickup at [facility] #[id number] New inhaler spacer, assist device (Dispense 1 spacer) See instructions Influenza A Asthma exacerbation Dispense 1 spacer ?? Pickup at [facility] #[id number] Unchanged acetaZOLAMIDE (acetaZOLAMIDE 250 mg oral tablet) Unchanged amitriptyline (amitriptyline 25 mg oral tablet) Unchanged azithromycin (azithromycin 250 mg oral tablet) See instructions Lower respiratory infection Take 2 tabs on day 1 and 1 tab on day 2-5 ?? Unchanged azithromycin (azithromycin 250 mg oral tablet) Unchanged cephalexin (cephalexin 500 mg oral capsule) Unchanged citalopram (citalopram 40 mg oral tablet) 1 tab Oral (given by mouth) Every day Unchanged cyanocobalamin (Vitamin B-12 1000 mcg oral tablet) Unchanged doxycycline (doxycycline hyclate 100 mg oral capsule) 1 Capsules Oral (given by mouth) 2 times a day Lower respiratory infection Duration: 7 Days Unchanged erythromycin ophthalmic (erythromycin 0.5% ophthalmic ointment) [...] needed for nausea/vomiting Musculoskeletal back pain Unchanged oseltamivir (Tamiflu 75 mg oral capsule) 1 Capsules Oral (given by mouth) 2 times a day Influenza Duration: 5 Days Unchanged Other Prescription (PROCHLORPERAZINE 5 MG TABLET) Unchanged predniSONE (predniSONE 20 mg oral tablet) Unchanged predniSONE (predniSONE 20 mg oral tablet) 2 tab Oral (given by mouth) Every day Influenza Duration: 5 Days Unchanged predniSONE (predniSONE 20 mg oral tablet) 2 tab Oral (given by mouth) Every day Lower respiratory infection Duration: 5 Days Unchanged topiramate (topiramate 25 mg oral tablet) Pharmacy Information [facility] #[id number]: [address], [place] [id number] [phone] Education Materials Influenza, Adult Influenza, also called the flu, is a viral infection that mainly affects the respiratory tract. This includes the lungs, nose, and throat. The flu spreads easily from person to person (is contagious). It causes common cold symptoms, along with high fever and body aches. What are the causes? This condition is caused by the influenza virus. You can get the virus by: ? Breathing in droplets that are in the air from an infected person's cough or sneeze. ? Touching something that has the virus on it (has been contaminated) and then touching your mouth, nose, or eyes. What increases the risk? The following factors may make you more likely to get the flu: ? Not washing or sanitizing your hands often. ? Having close contact with many people during cold and flu season. ? Touching your mouth, eyes, or nose without first washing or sanitizing your hands. ? Not getting an annual flu shot. You may have a higher risk for the flu, including serious problems, such as a lung infection (pneumonia), if you: ? Are older than 65. ? Are . ? Have a weakened disease-fighting system (immune system). This includes people who have HIV or AIDS,are on chemotherapy, or are taking medicines that reduce (suppress) the immune system. ? Have a long-term (chronic) illness, such as heart disease, kidney disease, diabetes, or lung disease. ? Have a liver disorder. ? Are severely overweight (morbidly obese). ? Have anemia. ? Have asthma. What are the signs or symptoms? Symptoms of this condition usually begin suddenly and last 4???14 days. These may include: ? Fever and chills. ? Headaches, body aches, or muscle aches. ? Sore throat. ? Cough. ? Runny or stuffy (congested) nose. ? Chest discomfort. ? Poor appetite. ? Weakness or fatigue. ? Dizziness. ? Nausea or vomiting. How is this diagnosed? This condition may be diagnosed based on: ? Your symptoms and medical history. ? A physical exam. ? Swabbing your nose or throat and testing the fluid for the influenza virus. How is this treated? If the flu is diagnosed early, you can be treated with antiviral medicine that is given by mouth (orally) or through an IV. This can help reduce how severe the illness is and how long it lasts. Taking care of yourself at home can help relieve symptoms. Your health care provider may recommend: ? Taking wpzn-sew-bhnzkxk medicines. ? Drinking plenty of fluids. In many cases, the flu goes away on its own. If you have severe symptoms or complications, you may be treated in a hospital. Follow these instructions at home: Activity ? Rest as needed and get plenty of sleep. ? Stay home from work or school as told by your health care provider. Unless you are visiting your health care provider, avoid leaving home until your fever has been gone for 24 hours without taking medicine. Eating and drinking ? Take an oral rehydration solution (ORS). This is a drink that is sold at pharmacies and retail stores. ? Drink enough fluid to keep your urine pale yellow. ? Drink clear fluids in small amounts as you are able. Clear fluids include water, ice chips, fruit juice mixed with water, and low-calorie sports drinks. ? Eat bland, oktz-bo-zpkyuu foods in small amounts as you are able. These foods include bananas, applesauce, rice, lean meats, toast, and crackers. ? Avoid drinking fluids that contain a lot of sugar or caffeine, such as energy drinks, regular sports drinks, and soda. ? Avoid alcohol. ? Avoid spicy or fatty foods. General instructions ? Take qhez-tft-osccchm and prescription medicines only as told by your health care provider. ? Use a cool mist humidifier to add humidity to the air in your home. This can make it easier to breathe. ? When using a cool mist humidifier, clean it daily. Empty the water and replace it with clean water. ? Cover your mouth and nose when you cough or sneeze. ? Wash your hands with soap and water often and for at least 20 seconds, especially after you cough or sneeze. If soap and water are not available, use alcohol-based hand electric stove installer. ? Keep all follow-up visits. This is important. How is this prevented? Get an annual flu shot. This is usually available in late summer, fall, or winter. Ask your health care provider when you should get your flu shot. ? Avoid contact with people who are sick during cold and flu season. This is generally fall and winter. Contact a health care provider if: ? You develop new symptoms. ? You have: ? Chest pain. ? Diarrhea. ? A fever. ? Your cough gets worse. ? You produce more mucus. ? You feel nauseous or you vomit. Get help right away if you: ? Develop shortness of breath or have difficulty breathing. ? Have skin or nails that turn a bluish color. ? Have severe pain or stiffness in your neck. ? Develop a sudden headache or sudden pain in your face or ear. ? Cannot eat or drink without vomiting. These symptoms may represent a serious problem that is an emergency. Do not wait to see if the symptoms will go away. Get medical help right away. Call your local emergency services (911 in the [place] Do not drive yourself to the hospital. Summary ? Influenza, also called the flu, is a viral infection that primarily affects your respiratory tract. ? Symptoms of the flu usually begin suddenly and last 4???14 days. ? Getting an annual flu shot is the best way to prevent getting the flu. ? Stay home from work or school as told by your health care provider. Unless you are visiting your health care provider, avoid leaving home until your fever has been gone for 24 hours without taking medicine. ? Keep all follow-up visits. This is important. This information is not intended to replace advice given to you by your health care provider. Make sure you discuss any questions you have with your health care provider. Document Revised: 04/20/2021 Document Reviewed: 04/20/2021 [email or web address] Patient Education ?? 2022 [employer] Asthma, Adult Asthma is a long-term (chronic) condition that causes recurrent episodes in which the lower airwaysin the lungs become tight and narrow. The narrowing is caused by inflammation and tightening of thesmooth muscle around the lower airways. Asthma episodes, also called asthma attacks or asthma flares, may cause coughing, making high-pitched whistling sounds when you breathe, most often when you breathe out (wheezing), shortness of breath, and chest pain. The airways may produce extra mucus caused by the inflammation and irritation. During an attack, it can be difficult to breathe. Asthma attacks can range from minor to life-threatening. Asthma cannot be cured, but medicines and lifestyle changes can help control it and treat acute attacks. It is important to keep your asthma well controlled so the condition does not interfere with your daily life. What are the causes? This condition is believed to be caused by inherited (genetic) and environmental factors, but its exact cause is not known. What can trigger an asthma attack? Many things can bring on an asthma attack or make symptoms worse. These triggers are different for every person. Common triggers include: ? Allergens and irritants like mold, dust, pet dander, cockroaches, pollen, air pollution, and chemical odors. ? Cigarette smoke. ? Weather changes and cold air. ? Stress and strong emotional responses such as crying or laughing hard. ? Certain medications such as aspirin or beta blockers. ? Infections and inflammatory conditions, such as the flu, a cold, pneumonia, or inflammation of the nasal membranes (rhinitis). ? Gastroesophageal reflux disease (GERD). What are the signs or symptoms? Symptoms may occur right after exposure to an asthma trigger or hours later and can vary by person.Common signs and symptoms include: ? Wheezing. ? Trouble breathing (shortness of breath). ? Excessive nighttime or test desk trouble locator coughing. ? Chest tightness. ? Tiredness (fatigue) with minimal activity. ? Difficulty talking in complete sentences. ? Poor exercise tolerance. How is this diagnosed? This condition is diagnosed based on: ? A physical exam and your medical history. ? Tests, which may include: ? Lung function studies to evaluate the flow of air in your lungs. ? Allergy tests. ? Imaging tests, such as X-rays. How is this treated? There is no cure, but symptoms can be controlled with proper treatment. Treatment usually involves: ? Identifying and avoiding your asthma triggers. ? Inhaled medicines. Two types are commonly used to treat asthma, depending on severity: ? Controller medicines. These help prevent asthma symptoms from occurring. They are taken every day. ? Fast-acting reliever or rescue medicines. These quickly relieve asthma symptoms. They are used as needed and provide short-term relief. ? Using other medicines, such as: ? Allergy medicines, such as antihistamines, if your asthma attacks are triggered by allergens. ? Immune medicines (immunomodulators). These are medicines that help control the immune system. ? Using supplemental oxygen. This is only needed during a severe episode. ? Creating an asthma action plan. An asthma action plan is a written plan for managing and treating your asthma attacks. This plan includes: ? A list of your asthma triggers and how to avoid them. ? Information about when medicines should be taken and when their dosage should be changed. ? Instructions about using a device called a peak flow meter. A peak flow meter measures how well thelungs are working and the severity of your asthma. It helps you monitor your condition. Follow these instructions at home: ? Take [id number] and prescription medicines only as told by your health care provider. ? Stay up to date on all vaccinations as recommended by your healthcare provider, including vaccines for the flu and pneumonia. ? Use a peak flow meter and keep track of your peak flow readings. ? Understand and use your asthma action plan to address any asthma flares. ? Do not smoke or allow anyone to smoke in your home. Contact a health care provider if: ? You have wheezing, shortness of breath, or a cough that is not responding to medicines. ? Your medicines are causing side effects, such as a rash, itching, swelling, or trouble breathing. ? You need to use a reliever medicine more than 2???3 times a week. ? Your peak flow reading is still at 50???79% of your personal best after following your action plan for 1 hour. ? You have a fever and shortness of breath. Get help right away if: ? You are getting worse and do not respond to treatment during an asthma attack. ? You are short of breath when at rest or when doing very little physical activity. ? You have difficulty eating, drinking, or talking. ? You have chest pain or tightness. ? You develop a fast heartbeat or palpitations. ? You have a bluish color to your lips or fingernails. ? You are light-headed or dizzy, or you faint. ? Your peak flow reading is less than 50% of your personal best. ? You feel too tired to breathe normally. These symptoms may be an emergency. Get help right away. Call 911. ? Do not wait to see if the symptoms will go away. ? Do not drive yourself to the hospital. Summary ? Asthma is a long-term (chronic) condition that causes recurrent episodes in which the airways become tight and narrow. Asthma episodes, also called asthma attacks or asthma flares, can cause coughing, wheezing, shortness of breath, and chest pain. ? Asthma cannot be cured, but medicines and lifestyle changes can help keep it well controlled and prevent asthma flares. ? Make sure you understand how to avoid triggers and how and when to use your medicines. ? Asthma attacks can range from minor to life-threatening. Get help right away if you have an asthma attack and do not respond to treatment with your usual rescue medicines. This information is not intended to replace advice given to you by your health care provider. Make sure you discuss any questions you have with your health care provider. Document Revised: 06/19/2022 Document Reviewed: 06/10/2022 [email or web address] Patient Education ?? 2022 [employer] Tests Performed Radiology CT Angio Chest 10/17/2024 12:24 EST Medications and Immunizations Administered Given Sodium Chloride 0.9%, 1000 mL, Hydration Bolus Ativan, 1 mg, Oral ipratropium-albuterol 0.5 mg-2.5 mg/3 mL inhalation solution, 3 mL, Nebulized Inhalation Lab Test Name Test Result Date/Time WBC 3.7 K/mcL 10/17/2024 10:49 EST RBC 5.14 Million/mcL 10/17/2024 10:49 EST Hgb 16.0 g/dL 10/17/2024 10:49 EST Hct 46.3 % 10/17/2024 10:49 EST MCV 90.0 fL 10/17/2024 10:49 EST MCH 31.1 pg 10/17/2024 10:49 EST MCHC 34.6 g/dL 10/17/2024 10:49 EST RDW-CV 13.4 % 10/17/2024 10:49 EST Platelets 240 K/mcL 10/17/2024 10:49 EST MPV 7.6 fL 10/17/2024 10:49 EST Neutro Auto 51.5 % 10/17/2024 10:49 EST Lymph Auto 32.4 % 10/17/2024 10:49 EST Travis Auto 14.1 % 10/17/2024 10:49 EST Eos, Auto 0.90 % 10/17/2024 10:49 EST Basophil Auto 1.1 % 10/17/2024 10:49 EST Neutro Absolute 1.9 K/mcL 10/17/2024 10:49 EST Lymph Absolute 1.2 K/mcL 10/17/2024 10:49 EST Travis Absolute 0.5 K/mcL 10/17/2024 10:49 EST Eos Absolute 0.0 K/mcL 10/17/2024 10:49 EST Baso Absolute 0.0 K/mcL 10/17/2024 10:49 EST Slide Review Not Indicated 10/17/2024 10:49 EST Sodium Level 137 mmol/L 10/17/2024 10:49 EST Potassium Level 3.4 mmol/L 10/17/2024 10:49 EST Chloride Level 108 mmol/L 10/17/2024 10:49 EST CO2 19 mmol/L 10/17/2024 10:49 EST Alk Phos 65 IntlUnit/L 10/17/2024 10:49 EST AST 14 IntlUnit/L 10/17/2024 10:49 EST ALT 11 IntlUnit/L 10/17/2024 10:49 EST BUN 6 mg/dL 10/17/2024 10:49 EST Glucose Level 99 mg/dL 10/17/2024 10:49 EST Creatinine Level 0.70 mg/dL 10/17/2024 10:49 EST BUN/Creat Ratio 8.6 10/17/2024 10:49 EST eGFR CKD-EPI 114 mL/min/1.73 m2 10/17/2024 10:49 EST Calcium Level 8.7 mg/dL 10/17/2024 10:49 EST Protein Total 7.1 g/dL 10/17/2024 10:49 EST Albumin Level 4.0 g/dL 10/17/2024 10:49 EST Globulin 3.1 g/dL 10/17/2024 10:49 EST A/G Ratio 1.3 g/dL 10/17/2024 10:49 EST Bilirubin Total 0.3 mg/dL 10/17/2024 10:49 EST Anion Gap 10.0 10/17/2024 10:49 EST Osmolality 272 mOsm/kg 10/17/2024 10:49 EST Troponin-I HS <2 ng/L 10/17/2024 10:50 EST U hCG Ql Negative 10/17/2024 12:24 EST Estimated Creatinine Clearance 122.14 mL/min 10/17/2024 11:23 EST Urine Srce Clean Catch 10/17/2024 12:24 EST UA Color LIGHT YELL 10/17/2024 12:24 EST UA Appear CLEAR. 10/17/2024 12:24 EST UA Glucose NEGATIVE 10/17/2024 12:24 EST UA Bili NEGATIVE 10/17/2024 12:24 EST UA Ketones NEGATIVE 10/17/2024 12:24 EST UA Spec Grav <=1.005 10/17/2024 12:24 EST UA Blood NEGATIVE 10/17/2024 12:24 EST UA pH 7.00 10/17/2024 12:24 EST UA Protein NEGATIVE 10/17/2024 12:24 EST UA Urobilinogen 0.2 10/17/2024 12:24 EST UA Nitrite NEGATIVE 10/17/2024 12:24 EST UA Leuk Est NEGATIVE 10/17/2024 12:24 EST SARS-CoV-2(Covid19)PCR(GXpert COVFLURSV) Neg-GeneXPert 10/17/2024 10:56 EST Flu A (GXpert COVFLURSV) Pos-GeneXPert 10/17/2024 10:56 EST Flu B (GXpert COVFLURSV) Neg-GeneXPert 10/17/2024 10:56 EST RSV (GXpert COVFLURSV) Neg-GeneXPert 10/17/2024 10:56 EST Patient/Centrifugal Wax Molder Signature Patient Name:BUTTS, DOTTIE Shetty I have received this information and my questions have been answered. Patient/Centrifugal Wax Molder Name: Patient/Centrifugal Wax Molder Signature: Relationship to Patient: Witness Name/Signature: Date: Electronically Signed on: 10/17/2024 12:39 ESTSigned by:JAKI Patient Care team information Care Team Personnel Name: FLORENTIN MANZANARES APRN Position: No Access Member Role: Primary Care Physician Address: [address] [place] [address] Telecom: Care Team Related Persons Name: NANCY BUTTS I Name: MARTHA GUERRERO Insurance Providers Guarantor name: DOTTIE BUTTS Health Plan Information #: 1 Payer: CBA BLUE Member Number: [id number] Policy Number: NA Group Number: NA Health Plan Information #: 2 Payer: CBA BLUE Member Number: [id number] Policy Number: NA Group Number: NA Health Plan Information #: 3 Payer: BC BS Member Number: NA Policy Number: NA Group Number: NA
--- OUTSIDE RECORDS SUMMARY | 2024-10-20 11:45 | XMS_ITS | Continuity of Care Document ---
Author Organization [facility] Address [address] [place] [address] Care Team Providers Care [employer] Name Role Phone FLORENTIN MANZANARES APRN Primary Care Physician Encounter [facility] [id number] Date(s): 09/29/24 - 09/29/24 [facility] [address], [place] [id number] Encounter Diagnosis Lower respiratory infection(Discharge Diagnosis) - 09/29/24 Discharge Disposition: Home or Self Care Attending Physician: Gina Bang PA-C Encounter Type: Clinic Allergies, Adverse Reactions, Alerts Substance Criticality Severity Reaction Reaction Severity Status clindamycin Unable to assess criticality Unknown Anaphylaxis Vomiting Active penicillins High criticality Severe A ctive traMADol High criticality Severe Act keke traZODone High criticality Severe Act keke Zolpidem Tartrate 1 Unable to assess criticality Unknown Parasomnia Active 1sleep eating, sleep posturing Assessment and Plan Extracted from: Title:[facility] Urgent Care Office Visit Note Author:Sherry Bang PA-C Date:09/29/24 1.??Lower respiratory infect ion??J22 ??Patient presenting with URI symptoms x 10 days, worsening. ??Last fever was 2 days ago.?? She is breathing comfortably and oxygenating well on room air however noted to have extensive wheezing and coarse breath sounds throughout. ??Does have underlying history of asthma for which she uses an inhaler as well as regular tobacco use. ??She has had a very close exposure to pneumonia as well.?? We discussed obtaining a chest x-ray versus empiric coverage and treatment for lower respiratory infection.?? After discussion of risk and benefits patient opted to proceed with empiric treatment.?? I explained to patient that her sinus symptoms are??likely viral and will need to??simply??resolve with time. ??She will be started on antibiotics as well as a course of prednisone given the extensive wheezing noted.?? Reviewed risks and benefits of medications. ??Encouraged rest and plenty of fluids. ??A cool-mist humidifier may be therapeutic. ??Continue inhalers as prescribed. ??Recheck if worsening despite treatment, would??reconsider chest x-ray at that time Ordered: azithromycin 250 mg oral tablet, See Instructions, Oral, Daily, Take 2 tabs on day 1 and 1 tab on day 2-5, # 6 tab, 0 Refill(s), Pharmacy: [facility], 160, cm, 08/28/24 11:24:00 EST, Height, 70.31, kg, 09/29/24 9:46:00 EST, Weight Dosing doxycycline hyclate 100 mg oral capsule, 100 mg = 1 cap, Oral, BID, # 14 cap, 0 Refill(s), Pharmacy: [facility], 160, cm, 08/28/24 11:24:00 EST, Height, 70.31, kg, 09/29/24 9:46:00 EST, Weight Dosing predniSONE 20 mg oral tablet, 40 mg = 2 tab, Oral, Daily, # 10 tab, 0 Refill(s), Pharmacy: [facility], 160, cm, 08/28/24 11:24:00 EST, Height, 70.31, kg, 09/29/24 9:46:00 EST, Weight Dosing ?? Future Scheduled Tests Radiology* MG Mammo Screening Bilateral 06/30/24 Medications amitriptyline 25 mg oral tablet 0 Refill(s) Start Date: 07/29/23 Status: Ordered Repeat number: 1 azithromycin 250 mg oral tablet See Instructions, Oral, Daily, Take 2 tabs on day 1 and 1 tab on day 2-5, # 6 tab, 0 Refill(s), Pharmacy: [facility], 160, cm, 08/28/24 11:24:00 EST, Height, 70.31, [...] BID, # 14 cap, 0 Refill(s), Pharmacy: [facility], 160, cm, 08/28/24 11:24:00 EST, Height, [...] forms, # 12 cap, 0 Refill(s), Pharmacy: [facility], 162, cm, 11/12/23 8:16:00 [...] for nausea/vomiting, # 16 tab, 0 Refill(s), Pharmacy:[facility], 162, cm, 11/12/23 8:16:00 EST, Height, 69, kg, 11/12/23 8:19:00 EST, WeightDosing Start Date: 11/12/23 Status: Ordered Quantity: 16.0 Unit: tab Repeat number: 1 Indication: Dorsalgia, unspecified predniSONE 20 mg oral tablet 40 mg = 2 tab, Oral, Daily, # 10 tab, 0 Refill(s), Pharmacy: [facility], 160, cm, 08/28/24 11:24:00 EST, Height, 70.31, kg, 09/29/24 9:46:00 EST, Weight Dosing Start Date: 09/29/24 Stop Date: 10/04/24 Status: Ordered Quantity: 10.0 Unit: tab Repeat number: 1 Indication: Unspecified acute lower respiratory infection predniSONE 20 mg oral tablet 0 Refill(s) Start Date: 07/29/23 Status: Ordered Repeat number: 1 Problem List [...] 1 Temperature Tympanic [36.6-38.1 Deg C] 3 6.4 Deg C *LOW* (09/29/24 9:38 AM) Peripheral Pulse Rate [60-100 bpm] 103 b pm *HI* (09/29/24 9:38 AM) Blood Pressure [90-120/60-80 mmHg] 124/9 0mmHg *HI* (09/29/24 9:38 AM) Mean Arterial Pressure, Cuff [65-140 mmH g] 101 mmHg (09/29/24 9:38 AM) Weight 70.31 kg (09/29/24 9:38 AM) Weight Measured (lbs) 155.007 lb (09/29/24 9:38 AM) Weight Dosing 70.310 kg (09/29/24 9:38 AM) Social History Social History Type Response Tobacco Tobacco use status u nknown Tobacco Use:. Sex Sex Representation Female (finding) Physician Outpatient Note * Gina Bang PA-C: PERFORM Event Display: Office Clinic Note Physician Authored Date: [id number] DOTTIE BUTTS :1985 Age:39 years Sex:Female Visit Date:09/29/2024 Primary Care Physician: FLORENTIN MANZANARES APRN Chief Complaint pt thinks she has a sinus infection. Pt states for 10 days has had sinus congestion with pain in eyes, sinus, frontal lobe. Pt has had consistyant fevers Pt has a lot of green mucus drainage. Pt alsostates some ear pain and crackling when swallowing. History of Present Illness This is a 39-year-old female with past medical history of asthma and tobacco use who presents for evaluation of URI symptoms.?? Patient reports that she has been under the weather for the last 10 days.?? She reports significant sinus congestion??and over the last few days has developed facial pain and pressure, over the maxillary sinuses.?? She has also had??fairly consistent fevers,??with a Tmaxof 101. ??Her last fever was 2 days ago.?? She also reports a deep, productive, mucousy cough. ??She has had chest tightness, wheezing, and shortness of breath with exertion. ??She has been exposed to pneumonia in the workplace.?? She denies sore throat Physical Exam Vitals & Measurements T:??36.4?C ??(Tympanic)?? HR:??103??(Peripheral)?? BP:??124/90?? SpO2:??98%?? WT:??70.31??kg?? General: A&O x 3, well-built and hydrated, no acute distress Eyes: PERRLA, no redness or drainage Ears: auditory canals non-tender bilaterally, bilateral TMs translucent and pearly upton Nose: nares congested,??tender maxillary sinuses bilaterally Mouth: moist mucous membranes without lesions Throat: oropharynx and tonsils without erythema or exudate Neck:??supple, no lymphadenopathy Chest: symmetric rise,??breathing comfortably speaking in full sentences Heart: normal S1S2, no murmurs, rubs, gallops Lungs: equal and symmetric respiratory effort,??coarse breath sounds and expiratory wheezing in allairways Assessment/Plan 1.??Lower respiratory infection??J22 ??Patient presenting with URI symptoms x 10 days, worsening. ??Last fever was 2 days ago.?? She is breathing comfortably and oxygenating well on room air however noted to have extensive wheezing and coarse breath sounds throughout. ??Does have underlying history of asthma for which she uses an inhaler as well as regular tobacco use. ??She has had a very close exposure to pneumonia as well.?? We discussed obtaining a chest x-ray versus empiric coverage and treatment for lower respiratory infection.?? After discussion of risk and benefits patient opted to proceed with empiric treatment.?? I explained to patient that her sinus symptoms are??likely viral and will need to??simply??resolve with time. ??She will be started on antibiotics as well as a course of prednisone given the extensive wheezing noted.?? Reviewed risks and benefits of medications. ??Encouraged rest and plenty of fluids. ??A cool-mist humidifier may be therapeutic. ??Continue inhalers as prescribed. ??Recheck if worseningdespite treatment, would??reconsider chest x-ray at that time Ordered: azithromycin 250 mg oral tablet, See Instructions, Oral, Daily, Take 2 tabs on day 1 and 1 tab on day 2-5, # 6 tab, 0 Refill(s), Pharmacy: [facility], 160, cm, 08/28/24 11:24:00 EST, Height, 70.31, kg, 09/29/24 9:46:00 EST, Weight Dosing doxycycline hyclate 100 mg oral capsule, 100 mg = 1 cap, Oral, BID, # 14 cap, 0 Refill(s), Pharmacy: [facility], 160, cm, 08/28/24 11:24:00 EST, Height, 70.31, kg, 09/29/24 9:46:00 EST, Weight Dosing predniSONE 20 mg oral tablet, 40 mg = 2 tab, Oral, Daily, # 10 tab, 0 Refill(s), Pharmacy: [facility], 160, cm, 08/28/24 11:24:00 EST, Height, 70.31, kg, 09/29/24 9:46:00 EST, Weight Dosing ?? Problem List/Past Medical [...] of tympanic membrane of both ears Medications amitriptyline 25 mg oral tablet azithromycin 250 mg oral tablet, See Instructions, Oral, Daily azithromycin 250 mg oral tablet cephalexin 500 mg oral capsule citalopram 40 mg oral tablet, 40 mg= 1 tab, Oral, Daily doxycycline hyclate 100 mg oral capsule, 100 mg= 1 cap, Oral, BID erythromycin 0.5% ophthalmic ointment ketorolac 10 mg oral tablet, 10 mg= 1 tab, Oral, every 6 hr, PRN neomycin/polymyxin B/dexamethasone 3.5 mg-10,000 units-1 mg/mL ophthalmic suspension, 1 drops, Eye-Both, every 4 hr ondansetron 4 mg oral tablet, disintegrating, 4 mg= 1 tab, Oral, every 6 hr, PRN predniSONE 20 mg oral tablet, 40 mg= 2 tab, Oral, Daily predniSONE 20 mg oral tablet Allergies penicillins traMADol traZODone Zolpidem Tartrate??(Parasomnia) clindamycin??(Anaphylaxis, Vomiting) Social History Alcohol Never Electronic Cigarette/Vaping Electronic Cigarette Use: Unknown/not obtained. Substance Use Current, Marijuana Tobacco Tobacco use status unknown Tobacco Use:. Electronically Signed on 09/29/2024 10:52 EST Gina Bang PA-C Patient Care team information Care Team Personnel Name: FLORENTIN MANZANARES APRN Position: No Access Member Role: Primary Care Physician Address: [address] [place] [address] Telecom: Care Team Related Persons Name: NANCY BUTTS I Name: MARTHA GUERRERO Insurance Providers Guarantor name: DOTTIE BUTTS Health Plan Information #: 1 Payer: LUIS MAYS Member Number: [id number] Policy Number: NA Group Number: [id number] Health Plan Information #: 2 Payer: DENTON SILVA Member Number: NA Policy Number: NA Group Number: NA Health Plan Information #: 3 Payer: TABATHA Member Number: [id number] Policy Number: NA Group Number: NA
--- OUTSIDE RECORDS SUMMARY | 2024-10-20 11:45 | XMS_ITS | Continuity of Care Document ---
Author Organization [facility] Address [address] [place] [address] Encounter LTTL_[place] FIN NBR [id number] Date(s): 01/06/23 - 01/06/[address] [address]- [place] Encounter Diagnosis Eye irritation(Discharge Diagnosis) - 01/06/23 Discharge Disposition: Home or Self Care Attending Physician: Inna Briones MD Admitting Physician: Inna Briones MD Allergies, Adverse Reactions, Alerts Substance Reaction Severity Status penicillins Severe Active traZODone Severe Active traMADol Severe Active Medications erythromycin 0.5% ophthalmic ointment 1 caprice, Eye-Left, QID, X 5 days, # 3.5 g, 0 Refill(s), 01/11/23 23:11:00 EDT Start Date: 01/06/23 Stop Date: 01/11/23 Status: Ordered Mental Status 01/06/23 Eye Opening Response Mitch Spontaneous ly Best Verbal Response [place] Oriented Best Motor Response [place] Obeys comman ds Mitch Coma Score 15 Vital Signs Most recent to oldest [Reference Range]: 1 Temperature Temporal Artery [36-38 Deg C ] 36.7 Deg C (01/06/23 10:43 PM) Peripheral Pulse Rate [60-100 bpm] 90 bp m (01/06/23 10:43 PM) Respiratory Rate [12-24 br/min] 16 br/mi n (01/06/23 10:43 PM) Blood Pressure [90-140/60-90 mmHg] 117/6 2mmHg (01/06/23 10:43 PM) Weight 7.00 kg (01/06/23 10:43 PM) Weight Dosing 7.00 kg (01/06/23 10:55 PM) Height 164.000 cm (01/06/23 10:43 PM) Height/Length Dosing 164.000 cm (01/06/23 10:55 PM) Body Mass Index 3.000 kg/m2 (01/06/23 10:43 PM) Social History Social History Type Response Tobacco Tobacco use status u nknown Tobacco Use:. Sex Hospital Discharge Instructions Patient Education 01/06/2023 22:10:51 Allergic Conjunctivitis, Adult Allergic Conjunctivitis, Adult Allergic conjunctivitis is inflammation of the conjunctiva. The conjunctiva is the thin, clear membrane that covers the white part of the eye and the inner surface of the eyelid. In this condition: ??? The blood vessels in the conjunctiva become irritated and swell. ??? The eyes become red or pink and feel itchy. Allergic conjunctivitis cannot be spread from person to person. This condition can develop at any age and may be outgrown. What are the causes? This condition is caused by allergens. These are things that can cause an allergic reaction in somepeople but not in other people. Common allergens include: ??? Outdoor allergens, such as: ??? Pollen, including pollen from grass and weeds. ??? Mold spores. ??? Car fumes. ??? Indoor allergens, such as: ??? Dust. ??? Smoke. ??? Mold spores. ??? Proteins in a pet's urine, saliva, or dander. What increases the risk? You may be more likely to develop this condition if you have a family history of these things: ??? Allergies. ??? Conditions caused by being exposed to allergens, such as: ??? Allergic rhinitis. This is an allergic reaction that affects the nose. ??? Bronchial asthma. This condition affects the large airways in the lungs and makes breathing difficult. ??? Atopic dermatitis (eczema). This is inflammation of the skin that is long- term (chronic). What are the signs or symptoms? Symptoms of this condition include eyes that are: ??? Itchy. ??? Red. ??? Watery. ??? Puffy. Your eyes may also: ??? Sting or burn. ??? Have clear fluid draining from them. ??? Have thick mucus discharge and pain (vernal conjunctivitis). How is this diagnosed? This condition may be diagnosed by: ??? Your medical history. ??? A physical exam. ??? Tests of the fluid draining from your eyes to rule out other causes. ??? Other tests to confirm the diagnosis, including: ??? Testing for allergies. The skin may be pricked with a tiny needle. The pricked area is then exposed to small amounts of allergens. ??? Testing for other eye conditions. Tests may include: ??? Blood tests. ??? Tissue scrapings from your eyelid. The tissue is then checked under a microscope. How is this treated? This condition may be treated with: ??? Cold, wet cloths (cold compresses) to soothe itching and swelling. ??? Washing the face to remove allergens. ??? Eye drops. These may be prescription or yfah-aoo-vypsgta. You may need to try different types to see which one works best for you, such as: ??? Eye drops that block the allergic reaction (antihistamine). ??? Eye drops that reduce swelling and irritation (anti-inflammatory). ??? Steroid eye drops, which may be given if other treatments have not worked (vernal conjunctivitis). ??? Oral antihistamine medicines. These are medicines taken by mouth to lessen your allergic reaction. You may need these if eye drops do not help or are difficult to use. Follow these instructions at home: Eye care ??? Apply a clean, cold compress to your eyes for 10???20 minutes, 3???4 times a day. ??? Do not touch or rub your eyes. ??? Do not wear contact lenses until the inflammation is gone. Wear glasses instead. ??? Do not wear eye makeup until the inflammation is gone. General instructions ??? Avoid known allergens whenever possible. ??? Take or apply sqvn-rwp-idaxzvn and prescription medicines only as told by your health care provider. These include any eye drops. ??? Drink enough fluid to keep your urine pale yellow. ??? Keep all follow-up visits as told by your health care provider. This is important. Contact a health care provider if: ??? Your symptoms get worse or do not get better with treatment. ??? You have mild eye pain. ??? You become sensitive to light. ??? You have spots or blisters on your eyes. ??? You have pus draining from your eyes. ??? You have a fever. Get help right away if: ??? You have redness, swelling, or other symptoms in only one eye. ??? Your vision is blurred or you have other vision changes. ??? You have severe eye pain. Summary ??? Allergic conjunctivitis is inflammation of the clear membrane that covers the white part of theeye and the inner surface of the eyelid. ??? Take or apply coub-vyz-hsdbrkx and prescription medicines only as told by your health care provider. These include eye drops. ??? Do not touch or rub your eyes. ??? Contact a health care provider if your symptoms get worse or do not get better with treatment. This information is not intended to replace advice given to you by your health care provider. Make sure you discuss any questions you have with your health care provider. Document Revised: 07/24/2020 Document Reviewed: 07/24/2020 [employer] Patient Education ?? 2021 [employer]. Follow Up Care 01/06/2023 22:43:29 With:primary care physician Address: When:3 to 5 days Physician Emergency department Note * Inna Briones MD: PERFORM Event Display: ED Note Physician Authored Date: [id number] DOTTIE BUTTS :1985 Age:37 years Sex:Female Visit Date:01/06/2023 Basic Information Time Seen: Inna Briones MD / 01/06/2023 22:47 Chief Complaint Left eye swelling, pain, started about 22:15 History Of Present Illness: This patient is a 37-year-old female presents today for evaluation of left eye irritation. ??The patient states that occasionally she will get some eye irritation when she is done petting the cat. ??However, tonight before bed she had taken off her make-up and then??felt like maybe a piece of cat hair or something had gotten into her eye. ??She tried to rub it and tried to use saline but there was no improvement. ??She felt like there is some swelling to the eyelid after this and so she??presents here. ??The patient denies any other areas of itching or hives.?? No changes to vision. ??No eye pain with movement.?? No Trauma to the eye. Review of Systems: Review of systems as stated above Physical Exam Vitals & Measurements T:??36.7?C ??(Temporal Artery)?? HR:??90??(Peripheral)?? RR:??16?? BP:??117/62?? SpO2:??97%?? HT:??164.000??cm?? WT:??7.00??kg?? BMI:??3.000?? Pain Score:??5?? O2 Therapy:??Room air?? GENERAL:??Well appearing in no acute distress SKIN:??No visible facial rash or cyanosis HENT:??Normocephalic, atraumatic Eye: There are some mild swelling to the upper eyelid but no erythema. ??Extraocular eye motions are all intact.?? On fluorescein stain there appears to be either some stringy mucus or perhaps even small animal hair??at the surface of the eye. ??This was gently removed with a sterile Q-tip.?? Once this is removed there is no corneal abrasions or defects??with fluorescein stain.?? The upper and lower eyelids were lifted and there is no foreign body appreciated.?? Otherwise no periorbital swelling. ??No proptosis of the eye. PULMONARY:??The patient is speaking in full sentences. The breathing is nonlabored. They do not appear tachypneic or air hungry. NEUROLOGIC:??Normal speech. Oriented. PSYCHIATRIC:??Normal mood and affect Medical Decision Making: Is a 37-year-old female presented today for evaluation of left eye irritation. ??She has had some eye irritation in the past after petting the cats and thinks that maybe tonight??perhaps some??cat hair and got onto her eye. ??She??had??rubbed it somewhat and also use some saline??without any improve ment. ??On exam??there was fibrous either??mucous??string or Hair present but this was removed easily with??the??sterile Q-tip.?? Otherwise there is no evidence of corneal abrasion??or foreign body.?? Patient tolerated this well and was comfortable with plan for discharge home.?? Patient was given a dose of Benadryl here.?? Return precautions were discussed with the patient. ??Patient will be also given some erythromycin ointment prescription to be filled??since conjunctivitis cannot be entirely ruled out although I think it is less likely given the abrupt onset of her symptoms. Procedure No Qualifying Data Assessment/Plan 1.??Eye irritation??H57.89 Ordered: erythromycin 0.5% ophthalmic ointment, 1 caprice, Eye-Left, QID, X 5 days, # 3.5 g, 0 Refill(s), 01/11/23 23:11:00 EDT ?? Orders: Benadryl, 50 mg = 2 cap, Oral, Cap, Once, First Dose: 01/06/23 23:09:00 EDT, Stop Date: 01/06/23 23:09:00 EDT, Physician Stop Discharge Patient, 01/06/23 23:12:00 EDT Patient Education Allergic Conjunctivitis, Adult Follow Up With When Contact Information primary care physician Within 3 to 5 days Additional Instructions: Medication Reconciliation New Prescription erythromycin ophthalmic (erythromycin 0.5% ophthalmic ointment)1 Application Left eye 4 times a dayfor 5 Days. Refills: 0. Problem List/Past Medical History Ongoing No qualifying data Historical No qualifying data Allergies penicillins traMADol traZODone Social History Electronic Cigarette/Vaping Electronic Cigarette Use: Unknown/not obtained. Tobacco Tobacco use status unknown Tobacco Use:. Electronically Signed on 01/06/23 11:16 PM Inna Briones MD Emergency department Discharge instructions * Inna Briones MD: PERFORM Event Display: ED Discharge Information Authored Date: [id number] DOTTIE BUTTS :1985 Age:37 years Sex:Female Visit Date:01/06/2023 Discharge Instructions We would like to thank you for allowing us to assist you with your healthcare needs. The following includes patient education materials and information regarding your injury/illness. Diagnosis from Today's Visit Eye irritation Discharge Vitals Temperature??(Temporal Artery) 98.1 ??F (36.7 ??C) Heart Rate??(Peripheral) 90 Respiratory Rate?? 16 Blood Pressure?? 117/62?? Height?? 64.57 in (164.000 cm) Weight?? 15.44 lb (7.00 kg) BMI?? 3.000 Allergies penicillins traMADol traZODone What to Do Next You Need to Schedule the Following Appointments Follow Up with??primary care physician When:??Within 3 to 5 days You were treated today on an emergency [...] Much When Why Instructions Next Dose New erythromycin ophthalmic (erythromycin 0.5% ophthalmic ointment) 1 Application Left eye 4 times a day Eye irritation Duration: 5 Days Printed Prescription Education Materials Allergic Conjunctivitis, Adult Allergic conjunctivitis is inflammation of the conjunctiva. The conjunctiva is the thin, clear membrane that covers the white part of the eye and the inner surface of the eyelid. In this condition: ? The blood vessels in the conjunctiva become irritated and swell. ? The eyes become red or pink and feel itchy. Allergic conjunctivitis cannot be spread from person to person. This condition can develop at any age and may be outgrown. What are the causes? This condition is caused by allergens. These are things that can cause an allergic reaction in somepeople but not in other people. Common allergens include: ? Outdoor allergens, such as: ? Pollen, including pollen from grass and weeds. ? Mold spores. ? Car fumes. ? Indoor allergens, such as: ? Dust. ? Smoke. ? Mold spores. ? Proteins in a pet's urine, saliva, or dander. What increases the risk? You may be more likely to develop this condition if you have a family history of these things: ? Allergies. ? Conditions caused by being exposed to allergens, such as: ? Allergic rhinitis. This is an allergic reaction that affects the nose. ? Bronchial asthma. This condition affects the large airways in the lungs and makes breathing difficult. ? Atopic dermatitis (eczema). This is inflammation of the skin that is long-term (chronic). What are the signs or symptoms? Symptoms of this condition include eyes that are: ? Itchy. ? Red. ? Watery. ? Puffy. Your eyes may also: ? Sting or burn. ? Have clear fluid draining from them. ? Have thick mucus discharge and pain (vernal conjunctivitis). How is this diagnosed? This condition may be diagnosed by: ? Your medical history. ? A physical exam. ? Tests of the fluid draining from your eyes to rule out other causes. ? Other tests to confirm the diagnosis, including: ? Testing for allergies. The skin may be pricked with a tiny needle. The pricked area is then exposedto small amounts of allergens. ? Testing for other eye conditions. Tests may include: ? Blood tests. ? Tissue scrapings from your eyelid. The tissue is then checked under a microscope. How is this treated? This condition may be treated with: ? Cold, wet cloths (cold compresses) to soothe itching and swelling. ? Washing the face to remove allergens. ? Eye drops. These may be prescription or ngwz-fme-oxyjeye. You may need to try different types to see which one works best for you, such as: ? Eye drops that block the allergic reaction (antihistamine). ? Eye drops that reduce swelling and irritation (anti-inflammatory). ? Steroid eye drops, which may be given if other treatments have not worked (vernal conjunctivitis). ? Oral antihistamine medicines. These are medicines taken by mouth to lessen your allergic reaction. You may need these if eye drops do not help or are difficult to use. Follow these instructions at home: Eye care ? Apply a clean, cold compress to your eyes for 10???20 minutes, 3???4 times a day. ? Do not touch or rub your eyes. ? Do not wear contact lenses until the inflammation is gone. Wear glasses instead. ? Do not wear eye makeup until the inflammation is gone. General instructions ? Avoid known allergens whenever possible. ? Take or apply ejsl-hkc-iqlhcqw and prescription medicines only as told by your health care provider. These include any eye drops. ? Drink enough fluid to keep your urine pale yellow. ? Keep all follow-up visits as told by your health care provider. This is important. Contact a health care provider if: ? Your symptoms get worse or do not get better with treatment. ? You have mild eye pain. ? You become sensitive to light. ? You have spots or blisters on your eyes. ? You have pus draining from your eyes. ? You have a fever. Get help right away if: ? You have redness, swelling, or other symptoms in only one eye. ? Your vision is blurred or you have other vision changes. ? You have severe eye pain. Summary ? Allergic conjunctivitis is inflammation of the clear membrane that covers the white part of the eyeand the inner surface of the eyelid. ? Take or apply zmcy-wkz-jalazyx and prescription medicines only as told by your health care provider. These include eye drops. ? Do not touch or rub your eyes. ? Contact a health care provider if your symptoms get worse or do not get better with treatment. This information is not intended to replace advice given to you by your health care provider. Make sure you discuss any questions you have with your health care provider. Document Revised: 07/24/2020 Document Reviewed: 07/24/2020 [employer] Patient Education ?? 2021 [employer] Patient/Display And Banner Designer Signature Patient Name:MARU BUTTSMargie Shetty I have received this information and my questions have been answered. Patient/Display And Banner Designer Name: Patient/Display And Banner Designer Signature: Relationship to Patient: Witness Name/Signature: Date: Electronically Signed on: 01/06/2023 23:11 EDTSigned by:AF Patient Care team information Care Team Personnel Name: Inna Briones MD Position: Physician Member Role: Attending Physician Address: Address: [address] [place] [id number] Name: Jackie Jeffries Position: Nurse Member Role: ED Nurse Care Team Related Persons Name: NANCY BUTTS I Address: Home [address] [place], [place] [id number] [facility] Name: MARTHA GUERRERO Address: Home [address] [facility] [id number]
--- OUTSIDE RECORDS SUMMARY | 2024-10-20 11:45 | XMS_ITS | Continuity of Care Document ---
Author Organization [facility] Address [address] [place] [id number] Care Team Providers Care Steel Fixer Name Role Phone FLORENTIN MANZANARES APRN Primary Care Physician Encounter LTTL_CA FIN NBR [id number] Date(s): 05/31/24 - 05/31/[address] [address]- [place] Encounter Diagnosis Vitamin B12 deficiency anemia due to intrinsic factor deficiency(Final) - Discharge Disposition: Home or Self Care Attending Physician: FLORENTIN MANZANARES APRN Admitting Physician: FLORENTIN MANZANARES APRN Referring Physician: FLORENTIN MANZANARES APRN Allergies, Adverse Reactions, Alerts Substance Criticality Severity Reaction Reaction Severity Status clindamycin Unable to assess criticality Unknown Anaphylaxis Vomiting Active penicillins High criticality Severe A ctive traMADol High criticality Severe Act keke traZODone High criticality Severe Act keke Zolpidem Tartrate 1 Unable to assess criticality Unknown Parasomnia Active 1sleep eating, sleep posturing Medications amitriptyline [...] Confirmed Active Results Laboratory List Name Date Vitamin B12 & Folate Level (Vitamin B12 + Folate (CPT-07711/23310)) 05/31/24 Most recent to oldest [Reference Range]: 1 Folate Level [>=5.9 ng/mL] 4.6 ng/mL *LOW* (05/31/24 10:04 AM) B12 Level [180-914 pg/mL] 159 pg/mL *LOW* (05/31/24 10:04 AM) Social History Social History Type Response Tobacco Tobacco use status u nknown Tobacco Use:. Sex Sex Representation Female (finding) Patient Care team information Care Team Personnel Name: FLORENTIN MANZANARES APRN Position: No Access Member Role: Primary Care Physician Address: [address] [place] [address] Care Team Related Persons Name: NANCY BUTTS I Name: MARTHA GUERRERO Insurance Providers Guarantor name: DOTTIE BUTTS Health Plan Information #: 1 Payer: [facility] Member Number: [id number] Policy Number: NA Health Plan Information #: 2 Payer: [employer] Member Number: [id number] Policy Number: NA Health Plan Information #: 3 Payer: [facility] Member Number: NA Policy Number: NA
--- OUTSIDE RECORDS SUMMARY | 2024-10-20 11:46 | XMS_ITS | Encounter Summary ---
Author Organization [facility] [place] [address] Care Team Providers Care Carton Making Machinist Name Role Phone Elisa Fox APRN Primary Care Provider Encounter Details Date Type Department Care Team (Late st Contact Info) Description 06/29/2024 [place] [address] Carla Alex Social History Tobacco Use Types Packs/Day Years Used Date Smoking Tobacco: Every Day Cigarettes Smokeless Tobacco: Never Sex and Gender Information Value Date Recorded Sex Assigned at Not on file Gender Identity Not on file Sexual Orientation Not on file documented as of this encounter Miscellaneous Notes * Telephone Encounter - Carla Alex - 06/29/2024 11:19 AM EDT LM asking pt to return call to schedule a Smoking Cessation apptmt documented in this encounter Plan of Treatment Not on file documented as of this encounter Visit Diagnoses Not on filedocumented in this encounter Care Teams Carton Making Machinist Relationship Specialty Start Date End Date Elisa Fox APRN [address] [place] [address] PCP - General Family Medicine 06/29/24 documented as of this encounter
--- OUTSIDE RECORDS SUMMARY | 2024-10-20 11:46 | XMS_ITS | Encounter Summary ---
Author Organization [facility] Address [address] [facility] [place] [address] Care Team Providers Care Patternmaker Metal Bench Name Role Phone Elisa Fox APRN Primary Care Provider Encounter Details Date Type Department Care Team (Latest Contact Info) Description 06/29/2024 Travel Social History Tobacco Use Types Packs/Day Years Used Date Smoking Tobacco: Every Day Cigarettes Smokeless Tobacco: Never Sex and Gender Information Value Date Recorded Sex Assigned at Not on file Gender Identity Not on file Sexual Orientation Not on file documented as of this encounter Plan of Treatment Not on file documented as of this encounter Visit Diagnoses Not on filedocumented in this encounter Care Teams Patternmaker Metal Bench Relationship Specialty Start Date End Date Elisa Fox APRN [address] [place] [address] PCP - General Family Medicine 06/29/24 documented as of this encounter
--- OUTSIDE RECORDS SUMMARY | 2024-10-20 11:46 | XMS_ITS | Encounter Summary ---
Author Organization [facility] Address [facility] [place] [address] Care Team Providers Care Rotating Field Assembler Name Role Phone Kota Eagle APRN, Nicole Primary Care Provider + Encounter Details Date Type Department Care Team (Latest Contact Info) Description 06/17/2018 - 06/17/2018 11:59 PM EDT Hospital Encounter Radiology Library at [facility] [place] [id number] Chapincito Farrar MD Discharge Disposition: Home Social History Tobacco Use Types Packs/Day Years Used Date Smoking Tobacco: Never Assessed Sex and Gender Information Value Date Recorded Sex Assigned at Not on file Gender Identity Not on file Sexual Orientation Not on file documented as of this encounter Medications at Time of Discharge Medication Sig Dispensed Refills Start Date End Date amitriptyline (ELAVIL) 25 mg Tablet 0 05/30/2018 folic acid (FOLVITE) 400 mcg Tablet 0 05/04/2018 HYDROcodone-acetaminop hen (VICODIN) 5-300 mg Tablet TAKE 1 TABLET BY MOUTH EVERY 8 HOURS NEEDED 0 02/02/2018 06/29/20 24 clindamycin (CLEOCIN) 150 mg Capsule TAKE 3 CAPSULES (450 MG) BY MOUTH THREE TIMES A DAY FOR 10 DAYS 0 02/02/2018 06/29/20 24 cyclobenzaprine (FLEXERIL) 5 mg Tablet take 1 tablet by mouth every 12 hours if needed for MUSCLE RELAXATION 0 06/05/2018 06/29/2024 gabapentin (NEURONTIN) 300 mg Capsule TAKE 1 CAPSULE BY MOUTH NIGHTLY FOR 3 NIGHTS, THEN TAKE 1 CAPSULE... (REFER TO PRESCRIPTION NOTES). 0 06/11/2018 06/29/2024 ketorolac (TORADOL) 10 mg Tablet 06/17/2018 06/29/2024 VITS W-CA,FE,FA,<1MG, ( VITAMIN ORAL) 10/21/2009 06/29/2024 documented as of this encounter Plan of Treatment Not on file documented as of this encounter Procedures Procedure Name Priority Date/Time Associated Diagnosis Comments FILM LIBRARY STORAGE ONLY DX SPINE Routine 06/17/2018 12:00 AM EDT documented in this encounter Results * Film Library- Storage Only DX Spine (06/17/2018 12:00 AM EDT) Narrative RAD - 07/13/2018 2:02 PM EDT This exam is for storage only and is auto-finalizing. Chapincito Farrar MD IMG FILM LIBRARY ORD ERABLES Performing Organization Address City/State/[facility] Co de Phone Number [place], [place] documented in this encounter Visit Diagnoses Not on filedocumented in this encounter Care Teams Rotating Field Assembler Relationship Specialty Start Date End Date Lindsey Escudero APRN PCP - General 08/07/10 07/09/23 documented as of this encounter
--- OUTSIDE RECORDS SUMMARY | 2024-10-20 11:46 | XMS_ITS | Encounter Summary ---
Author Organization [facility] Address [facility] [place] [address] Care Team Providers Care Retail Commission Sales Associate Name Role Phone Elisa Fox TESTER REGULATOR Primary Care Provider Encounter Details Date Type Department Care Team ([facility] st Contact Info) Description 08/28/2024 12:50 PM EST Ancillary Procedure Radiology Library at [facility] [place] [id number] Unknown None Social History Tobacco Use Types Packs/Day Years [...] Priority Date/Time Associated Diagnosis Comments FILM LIBRARY - STORAGE ONLY CT NECK Routine 08/28/2024 12:50 PM EST documented in this encounter Results * Film Library- Storage Only CT Neck (08/28/2024 12:50 PM EST) 09/02/2024 12:2 0 PM EST Narrative RAD - 09/02/2024 12:20 PM EST This exam is auto-finalizing. It's purpose is for storage only. Unknown IMG FILM LIBRARY ORD ERABLES [facility] [place], [place] documented in this encounter Visit Diagnoses Not on filedocumented in this encounter Care Teams Retail Commission Sales Associate Relationship Specialty Start Date End Date Elisa Fox APRN [address] [facility] [place] [address] PCP - General Family Medicine 06/29/24 documented as of this encounter
--- OUTSIDE RECORDS SUMMARY | 2024-10-20 11:46 | XMS_ITS | Encounter Summary ---
[place] [address] Care Team Providers Care Strapper And Buffer Name Role Phone Kota Eagle APRN, Nicole Primary Care Provider + Reason for Referral * Diagnostic Test (Routine) - Specialty Diagnoses / Procedures Referred By Contac t Referred To Contact Procedures MRI Cervical Spine wo Contrast (Generic) [facility] [address] [place] [address] Referral ID Status Reason Start Date Expiration Date Visits Requested Visits Authorized [id number] Specialty Service Requested 07/15/2018 01/11/2019 1 1 Encounter Details Date Type Department Care Team (Late st Contact Info) Description 07/15/2018 External Results [place] [address] Provider, Scanning Social History Tobacco Use Types Packs/Day Years Used Date Smoking Tobacco: Never Assessed Sex and Gender Information Value Date Recorded Sex Assigned at Not on file Gender Identity Not on file Sexual Orientation Not on file documented as of this encounter Plan of Treatment Not on file documented as of this encounter Procedures Procedure Name Priority Date/Time Associated Diagnosis Comments MRI CERVICAL SPINE WO CONTRAST Routine 06/15/2018 documented in this encounter Results * MRI Cervical Spine wo Contrast (Generic) (06/15/2018) Anatomical Region Laterality Modality C-spine Magnetic Resonan ce Historical Provider IMG MRI ORDERABLE S documented in this encounter Visit Diagnoses Not on filedocumented in this encounter Care Teams Strapper And Buffer Relationship Specialty Start Date End Date Lindsey Escudero APRN PCP - General 08/07/10 07/09/23 documented as of this encounter
--- OUTSIDE RECORDS SUMMARY | 2024-10-20 11:46 | XMS_ITS | Encounter Summary ---
Author Organization [facility] Address [address] [place] [address] Care Team Providers Care Gm/Svp Global Publisher Business Name Role Phone Lindsey Escudero Primary Care Provider Encounter Details Date Type Department Care Team (Late st Contact Info) Description 06/09/2020 Lab Requisition [facility] Pathology & Laboratory Medicine - [address] [address] Fareed Diaz, [address] [phone] Encounter for other general examination Social History Tobacco Use Types Packs/Day Years Used Date Smoking Tobacco: Never Assessed Interpersonal Safety Answer Date Record ed Physically Hurt Never 04/16/2020 Verbally Threaten Not on file 04/16/2020 Comments Unknown Sex and Gender Information Value Date Recorded Sex Assigned at Not on file Legal Sex Female 18:39 EST Gender Identity Not on file Sexual Orientation Not on file documented as of this encounter Plan of Treatment Not on file documented as of this encounter Procedures Procedure Name Priority Date/Time Associated Diagnosis Comments CHROMOSOME ANALYSIS Today 06/08/2020 2 3:55 EDT Encounter for other general examination documented in this encounter Results * CHROMOSOME ANALYSIS (06/08/2020 23:55 EDT) CYTOGENETICS INTERPRETATION Products of conception with a normal female karyotype. 07/03/2020 13:05 EDT [facility] Comment In 46,XX products of conception, maternal cell contamination is possible. 07/03/2020 13:05 [facility] Attestation By the signature below, the attending physician certifies that they have 1) personally conducted a gross and/or microscopic examination of the described specimen(s), and/or personally interpreted the results of laboratory testing of the described specimen(s), and 2) personally rendered or confirmed the above diagnosis. 07/03/2020 13:05 [facility] at 1305 Clinical History 9 weeks , possible miscarriage of fetus at home (POC came out after patient arrived at the ED) 07/03/2020 13:05 [facility] Testing Performed G-banded karyotype 07/03/2020 13:05 [facility] Report Cells counted: 20, Analyzed: 5, Karyotyped: 5, Band resolution: 400 07/03/2020 13:05 [facility] Karyotype 46,XX 07/03/2020 13:05 [facility] Scanned Images 07/03/2020 13:05 [facility] Tissue PRODUCTS OF CONCEPTION TISSUE SPECIMEN / Unknown 06/08/2020 23:55 EDT 06/09/2020 9:47 EDT us Fareed Diaz DO PATHOLOGY ORDERABLE S Final Result [facility] [address] [place] [address] documented in this encounter Visit Diagnoses Diagnosis Encounter for other general examination documented in this encounter Care Teams Gm/Svp Global Publisher Business Relationship Specialty Start Date End Date Lindsey Escudero ARNP [address] [place] [address] PCP - General 11/22/19 documented as of this encounter
--- OUTSIDE RECORDS SUMMARY | 2024-10-20 11:46 | XMS_ITS | Encounter Summary ---
Author Organization [facility] Address [address] [place] [address] Care Team Providers Care Rig Supervisor Name Role Phone Lindsey Escudero Primary Care Provider [phone] Encounter Details Date Type Department Care Team (Latest Contact Info) Description 03/07/2016 10:26 EDT - 03/07/2016 23:59 EDT Hospital Encounter [address] [address] Unknown, Provider, MD Discharge Disposition: Home or Self Care Social History Tobacco Use Types Packs/Day Years Used Date Smoking Tobacco: Never Assessed Comments Unknown Sex and Gender Information Value Date Recorded Sex Assigned at Not on file Legal Sex Female 18:39 EST Gender Identity Not on file Sexual Orientation Not on file documented as of this encounter Discharge Disposition Disposition Code Departure Means Destination Home or Self [facility]pc documented in this encounter Plan of Treatment Not on file documented as of this encounter Visit Diagnoses Not on filedocumented in this encounter Care Teams Rig Supervisor Relationship Specialty Start Date End Date Lindsey Escudero ARNP [address] [place] [address] PCP - General 03/07/10 03/11/16 documented as of this encounter
--- OUTSIDE RECORDS SUMMARY | 2024-10-20 11:46 | XMS_ITS | Encounter Summary ---
Author Organization [facility] Address [address] [place] [address] Care Team Providers Care Power Hammer Operator Name Role Phone Lindsey Escudero Primary Care Provider Encounter Details Date Type Department Care Team (Late st Contact Info) Description 06/08/2020 Lab Requisition [facility] Pathology & Laboratory Medicine - [address] [address] Fareed Diaz, [address] [phone] Encounter for other general examination Social History [...] Procedure Name Priority Date/Time Associated Diagnosis Comments SURGICAL PATHOLOGY Today 06/07/2020 23 :55 EDT Encounter for other general examination documented in this encounter Results * SURGICAL PATHOLOGY (06/07/2020 23:55 EDT) Final Diagnosis A. TISSUE PASSED PER VAGINA, ?POC: - Chorionic villi, membranes, inflamed and necrotic decidua and gestational -type endometrium, consistent with product of conception. 06/15/2020 12:30 EDT [facility] Attestation There was significant resident/fellow involvement in the diagnostic evaluation of this case. By the signature below, the attending physician certifies that they have personally conducted a gross and/or microscopic examination of the described specimens and rendered or confirmed the above diagnosis. 06/15/2020 12:30 EDT [facility] at 1230 Clinical History 9 weeks , possible miscarriage of fetus at home. This specimen came out after arriving in ED. Possibly placenta?; Products of conception, if possible w/this spec 06/15/2020 12:30 EDT [facility] Gross Description A. Received in formalin labelled with proper patient identification (initials H, I) and POC? is a somewhat triangular urena to dumont-purple and hemorrhagic tissue (4.9 x 2.4 x 2.0 cm), representing a possible decidual cast. Villous tissue and gestational sac are identified. parts are not present. Ice Delivery Driver sections are submitted in A1-A3. NIGEL TSE 06/09/2020 9:36 06/15/2020 12:30 EDT [facility] Resident/Gage w: Alli Mcallister MD 06/15/2020 12:30 EDT [facility] Performing Lab [facility] 06/15/2020 12:30 EDT [facility] Scanned Images 06/15/2020 12:30 T [facility] Tissue PRODUCTS OF CONCEPTION TISSUE SPECIMEN / Unknown 06/07/2020 23:55 EDT 06/08/2020 18:00 EDT us Fareed Diaz DO PATHOLOGY ORDERABLE S Final Result [facility] [address] [place] [address] documented in this encounter Visit Diagnoses Diagnosis Encounter for other general examination documented in this encounter Care Teams Power Hammer Operator Relationship Specialty Start Date End Date Lindsey Escudero ARNP [address] [place] [id number] PCP - General 11/22/19 documented as of this encounter
--- OUTSIDE RECORDS SUMMARY | 2024-10-20 11:46 | XMS_ITS | Encounter Summary ---
Author Organization [facility] Address [address] [place] [address] Care Team Providers Care Gas Pumper Name Role Phone Unknown, Provider Primary Care Provider Unava ilable Encounter Details Date Type Department Care Team (Late st Contact Info) Description 12/22/2009 Results Only [facility] Laboratory Services - [facility] [address] [place], [place] [phone] Robi Devries MD [address] [place] [address] Social History Tobacco Use Types Packs/Day Years [...] Priority Date/Time Associated Diagnosis Comments SURGICAL PATHOLOGY Routine 12/22/2009 0:00 EDT documented in this encounter Results * SURGICAL PATHOLOGY (12/22/2009 0:00 EDT) Pathology Report: SURGICAL PATHOLOGY REPORT ? Reports generated via electronic interface contain original data; ? however they are lacking the format of the original report. ? Caution should be taken when reading/interpreti ng unformatted reports. ? Name: ? BENJAMÍN, DOTTIE ? Accession #: ? [id number] ? : ? 1985 (Age: 24) ??F ? Collect Date: ? 12/22/2009 ? Location: ? [facility] ? Receive Date: ? 12/22/2009 ? Provider: ROBI DEVRIES MD ? Copy to: MARTHA QUINN MD ? KIRSTIN FISCHLER [employer] ? Final Pathologic Diagnosis: ? A. ?Appendix, appendectomy: ? - ??Focal serosal decidualization. ? B. ??Term shipman placenta: ? 1. ??Umbilical cord with single umbilical artery. ? 2. ?? membranes with no abnormalities. ? 3. ??Placenta, small for gestation, with increased perivillous fibrin(oid) ?? and multiple infarcts. ? Document reviewed and electronically signed by: ? Tangela L. Mckeon, MD ? Report ??Date: 12/26/2009 11:38 ? By the signature above, the attending physician certifies that he/she has ? personally conducted a gross and/or microscopic examination of the described ? specimens and rendered or confirmed the above diagnosis. ? Specimen(s) Received: ? A. ?Appendix ? B. ? Placenta + cord ? Clinical History: ? Term labor, non-reassuring heart rate, 2 vessel cord, IUGR, ? hypertension, , incidental appendectomy, 39 weeks ? Gross Description: ? Received in formalin labelled Garcia, Dottie and appendix is an 8.0 cm in length by 0.7 cm in average diameter vermiform appendix received with minimal ?? attached yellow lobulated adipose tissue. ??The resection margin is inked black. The serosa is urena-purple, smooth and glistening and there are no transmural ? defects. ??Sectioning reveals a pink-urena wall with a thickness ranging from 0.1 ?? to 0.3 cm. ??The luminal diameter ranges from pinpoint to 0.4 cm and contains ? soft brown fecal matter throughout, but no fecaliths are present. ? Fruit Inspector sections are submitted as (A). ? Received in formalin labelled Dottie Garcia and placenta is a shipman ? placenta with attached umbilical cord and membranes. ??The two vessel ? umbilical cord is 14.0 cm in length by 0.8 cm in average diameter, inserts ? eccentrically, 2.5 cm from the nearest disc margin, and is urena-white, coiled, ?? and otherwise unremarkable. ??The membranes are urena-purple, opaque, and ? insert at the disc margin. ??After the umbilical cord and membranes have ?? been removed, the 14.0 x 11.0 x 3.0 cm, ovoid placental disc weighs 404 grams. ?? The surface is dumont-purple with the usual arborizing vasculature. ??The ? maternal surface is red-brown, intact and complete cotyledons. ??Sectioning ? reveals four firm, urena-white, well circumscribed nodules that are centrally and para-eccentrically located and range from 0.7 to 1.4 cm in greatest dimension. ?? The remaining placental disc is urena-red and spongy with no other lesions ? identified. ??Fruit Inspector sections are submitted as follows: ? BLOCK RAMACHANDRAN ? B1 ?Proximal and distal umbilical cord and membrane rolls ? B2 ?Full thickness placental disc ? B3,B4 ?Full thickness placental disc bisected ? B5 ?Fruit Inspector sections of urena-white firm nodules ? (LHenry Woo)/cjh ? End of Report ? [facility] 12/22/2009 12/22/2009 6:1 6 EDT us Robi Devries MD PATHOLOGY ORDERABLES Final Resu lt [facility] [address] [place] [address] documented in this encounter Visit Diagnoses Not on filedocumented in this encounter Care Teams Gas Pumper Relationship Specialty Start Date End Date Unknown, Provider, PCP - General 05/01/09 03/06/10 documented as of this encounter
--- OUTSIDE RECORDS SUMMARY | 2024-10-20 11:46 | XMS_ITS | Encounter Summary ---
Author Organization [facility] Address [address] [place] [address] Care Team Providers Care Pneumatic Tube Repairer Name Role Phone Lindsey Escudero Primary Care Provider Unknown, Provider Primary Care Provider Unava ilable Encounter Details Date Type Department Care Team (Late st Contact Info) Description 08/21/2006 Results Only [facility] - [place] [address] [place] [address] More Gotti MD [address] [place] [address] Social History Tobacco Use Types Packs/Day Years [...] Procedure Name Priority Date/Time Associated Diagnosis Comments CYTOPATHOLOGY Routine 08/21/2006 0:00 EST documented in this encounter Results * CYTOPATHOLOGY (08/21/2006 0:00 EST) Pathology Report: CYTOPATHOLOGY REPORT Reports generated via electronic interface contain original data; however they are lacking the format of the original report. Caution should be taken when reading/interpreti ng unformatted reports. Name: ? DOTTIE GARCIA ? Accession #: ? [id number] : ? 1985 (Age: 21) ??F ?Collect Date: ? 08/21/2006 Location: ? [facility] ? Receive Date: ? 08/25/2006 Provider: ?MORE GOTTI MD Copy to: ? Specimen/Source: ?ThinPrep Pap Test, Vagina/Cervix, processed on [employer] ThinPrep Imaging System, with manual evaluation Last Menstrual Period: ? 07/21 ? SPECIMEN ADEQUACY ? Satisfactory for Evaluation - transformation zone component present GENERAL CATEGORIZATION ? Negative for Intraepithelial Lesion or Malignancy ? Document reviewed and electronically signed by: ? Denton Lemus, YAMILETH(ASCP) ? Report Date: ??08/28/2006 09:46 End of Report [facility] 08/21/2006 08/25/2006 us More Gotti MD PATHOLOGY ORDERABLES Final Re sult [facility] [address] [place] [address] documented in this encounter Visit Diagnoses Not on filedocumented in this encounter Care Teams Pneumatic Tube Repairer Relationship Specialty Start Date End Date Lindsey Escudero ARNP [address] [place] [address] PCP - General 03/07/10 03/11/16 Unknown, Provider, PCP - General 05/01/09 03/06/10 documented as of this encounter
--- OUTSIDE RECORDS SUMMARY | 2024-10-20 11:46 | XMS_ITS | Encounter Summary ---
Author Organization [facility] Address [facility] [place] [address] Care Team Providers Care Dock Manager Name Role Phone Kota Eagle APRN, Nicole Primary Care Provider + Encounter Details Date Type Department Care Team (Latest Contact Info) Description 06/15/2018 - 06/15/2018 11:59 PM EDT Hospital Encounter Radiology Library at [facility] [place] [phone] Chapincito Farrar MD Discharge Disposition: Home Social [...] (REFER TO PRESCRIPTION NOTES). 0 06/11/2018 06/29/2024 VITS W-CA,FE,FA,<1MG, ( VITAMIN ORAL) 10/21/2009 06/29/2024 documented as of this encounter Plan of Treatment Not on file documented as of this encounter Procedures Procedure Name Priority Date/Time Associated Diagnosis Comments FILM LIBRARY STORAGE ONLY MR SPINE Routine 06/15/2018 12:00 AM EDT documented in this encounter Results * Film Library- Storage Only MR Spine (06/15/2018 12:00 AM EDT) Narrative [facility] - 07/13/2018 2:03 PM EDT This exam is for storage only and is auto-finalizing. Chapincito Farrar MD G FILM LIBRARY ORD ERABLES [place], [place] documented in this encounter Visit Diagnoses Not on filedocumented in this encounter Care Teams Dock Manager Relationship Specialty Start Date End Date Lindsey Escudero APRN PCP - General 08/07/10 07/09/23 documented as of this encounter
--- OUTSIDE RECORDS SUMMARY | 2024-10-20 11:46 | XMS_ITS | Clinical Summary ---
Author Organization [facility] [place] [address] Care Team Providers Care Trailer Steerer Name Role Phone Elisa Fox APRN Primary Care Provider Allergies Active Allergy Reactions Criticality Noted Date Comments Penicillins CIS - vomiting Tramadol High 06/29/2024 Trazodone High 06/29/2024 Medications Medication Sig Dispensed Refills Start Date End Date Status amitriptyline (ELAVIL) 25 mg Tablet 0 05/30/2018 Active folic acid (FOLVITE) 400 mcg Tablet 0 05/04/2018 Active citalopram (CeleXA) 40 mg tablet Take 40 mg by mouth. 07/29/2023 Active cyanocobalamin, Vitamin B-12, (Vitamin B-12) 1,000 mcg tablet 06/01/2024 Active Active Problems No known active problems Encounters Date Type Department Care Team Description 08/28/2024 12:50 PM EST Ancillary Procedure Radiology Library at [facility] [place] [phone] Unknown 08/28/2024 12:45 PM EST Ancillary Procedure Radiology Library at [facility] [place] [phone] Unknown 08/28/2024 Interpretation Only Radiology Library at [facility] [place] [phone] Unknown 08/28/2024 Interpretation Only Radiology Library at [facility] [place] [phone] Unknown from Last 3 Months Immunizations Name Administration Dates Next Due Influenza (Novel [id number]) Injectable 07/12/2009 Influenza Vaccine, Whole 07/12/2009 Tuberculin Skin Test, PPD 11/12/2016,11/04/2016 Social History Tobacco Use Types Packs/Day Years Used Date Smoking Tobacco: Every Day Cigarettes Smokeless Tobacco: Never Tobacco Cessation:Ready to Q uit: Not Asked; Counseling Given: Not Answered Sex and Gender Information Value Date Recorded Sex Assigned at Not on file Gender Identity Not on file Sexual Orientation Not on file Last Filed Vital Signs Vital Sign Reading Time Taken Comments Blood Pressure - - Pulse - - Temperature - - Respiratory Rate - - Oxygen Saturation - - Inhaled Oxygen Concentration - - Weight 74 kg (163 lb 3.2 oz) 06/29/2024 10:25 AM EDT Height 160 cm (5' 3) 06/29/2024 10:25 AM EDT Body Mass Index 28.91 06/29/2024 10:25 AM EDT Plan of Treatment Health Maintenance Due Date Last Done Comments HIV screen 2005 Hepatitis C Screening 2005 Lipid Screening 2005 Hepatitis B vaccine (0-59 yrs) (1) 2006 Pneumococcal Vaccine: At-Ris k 5-49yrs (1 of 2 - PCV) 2006 Tetanus/Diphtheria/Pertussis Vaccines (1 - Tdap) 2006 HPV test 2017 PAP Smear 2017 Covid-19 Vaccine (1 - 2023- season) 2024 Influenza (Flu) vaccine (1 o f 1 - Influenza standard series) 05/16/2024 07/12/2009, 07/12/2009 Procedures Procedure Name Priority Date/Time Associated Diagnosis Comments FILM LIBRARY - STORAGE ONLY CT NECK Routine 08/28/2024 12:50 PM EST FILM LIBRARY STORAGE ONLY CT HEAD Routine 08/28/2024 12:45 PM EST from Last 3 Months Results * Film Library- Storage Only CT Neck (08/28/2024 12:50 PM EST) 09/02/2024 12:2 0 PM EST Narrative [facility] - 09/02/2024 12:20 PM EST This exam is auto-finalizing. It's purpose is for storage only. Unknown IMG FILM LIBRARY ORD ERABLES Performing Organization Address [facility] de Phone Number [place], [place] * Film Library- Storage Only CT Head (08/28/2024 12:45 PM EST) 09/02/2024 12:2 0 PM EST Narrative RAD - 09/02/2024 12:20 PM EST This exam is auto-finalizing. It's purpose is for storage only. Unknown IMG FILM LIBRARY ORD ERABLES Performing Organization Address [facility] Co de Phone Number [place], [place] from Last 3 Months Care Teams Trailer Steerer Relationship Specialty Start Date End Date Elisa Fox, RHINA [address] [place], [place] [id number] PCP - General Family Medicine 06/29/24
--- OUTSIDE RECORDS SUMMARY | 2024-10-20 11:46 | XMS_ITS | Encounter Summary ---
Author Organization [facility] Address [address] [place] [address] Care Team Providers Care Water Vessel Captain Name Role Phone Lindsey Escudero Primary Care Provider Encounter Details Date Type Department Care Team (Late st Contact Info) Description 03/07/2016 Results Only [facility] [phone] Robi Devries MD [address] [place] [id number] Social History Tobacco Use Types Packs/Day Years [...] Date/Time Associated Diagnosis Comments SURGICAL PATHOLOGY Routine 03/07/2016 12 :20 EDT documented in this encounter Results * SURGICAL PATHOLOGY (03/07/2016 12:20 EDT) Pathology Report: SURGICAL PATHOLOGY REPORT Reports generated via electronic interface contain original data; however they are lacking the format of the original report. Caution should be taken when reading/interpret ing unformatted reports. Name: ? DOTTIE GARCIA ? Accession #: ? [id number] ? : ? 1985 (Age: 30) ??F ? Collect Date: ? 03/07/2016 ? Location: ? [facility] ? Receive Date: ? 03/07/2016 ? Provider: ROBI DEVRIES MD Copy to: ? Final Pathologic Diagnosis: ? PRODUCT OF CONCEPTION, SPONTANEOUS : - Intact fetus, sex undetermined, measurements consistent with 11 weeks. ??- No gross abnormalities. Document reviewed and electronically signed by: LULA SERRANO MD Report ??Date: 03/12/2016 10:44 By the signature above, the attending physician certifies that he/she has personally conducted a gross and/or microscopic examination of the described specimens and rendered or confirmed the above diagnosis. Specimen(s) Received: Fetus Clinical History: Fetus from spontaneous ; LMP: 11 wks Gross Description: ? Received in formalin labelled with proper patient identification (initials H, I) and fetus is an intact ambiguous fetus (10.68 g, 5.9 cm crown to rump, 6.8 cm crown to heel, 4.5 cm head circumference, 5.1 cm chest circumference, 4.7 cm abdomen circumference, and 0.8 cm foot length). ??The skin is urena-brown, glistening, and dusky. ??The eyes are recessed and black. ??The nose is normal. The lip and palate are normal. ??The ears are normally positioned and normal. The chest and abdomen have a normal contour. ??The extremities are symmetrical and normally formed and the bilateral hands and feet each have five digits, without fusion and no other abnormalities. ??The anus is patent. ??A phallus is noted and the urethral folds are unfused along the phallus. ??There is a segment of attached urena-white semi-translucent umbilical cord (5.0 cm in length x 0.2 cm in diameter) that has three vessels. ??No sections are submitted. ??Gross only. Dr. Villatoro 03/08/2016 2:53 PM End of Report [facility] 03/07/2016 12:2 0 EDT 03/07/2016 12:20 EDT us Robi Devries MD PATHOLOGY ORDERABLES Final Resu lt Performing Organization Address City/State/[facility] Co de Phone Number [facility] [address] [place] [address] documented in this encounter Visit Diagnoses Not on filedocumented in this encounter Care Teams Water Vessel Captain Relationship Specialty Start Date End Date Lindsey Escudero ARNP [address] [place] [address] PCP - General 03/07/10 03/11/16 documented as of this encounter
--- OUTSIDE RECORDS SUMMARY | 2024-10-20 11:46 | XMS_ITS | Encounter Summary ---
Author Organization [facility] Address [address] [place] [address] Care Team Providers Care Resident Care Aide Name Role Phone Unavailable Primary Care Provider Unavailabl e Encounter Details Date Type Department Care Team (Late st Contact Info) Description 08/09/2008 Before PRISM Converted Visit (Maple) [facility] - Maple conversion [address] [place] [address] Kirstin Escudero ARNP [address] [place] [address] Social History Tobacco Use Types Packs/Day Years [...] Priority Date/Time Associated Diagnosis Comments CYTOPATHOLOGY Routine 08/09/2008 0:00 EST documented in this encounter Results * CYTOPATHOLOGY (08/09/2008 0:00 EST) Pathology Report: CYTOPATHOLOGY REPORT ? Reports generated via electronic interface contain original data; ? however they are lacking the format of the original report. ? Caution should be taken when reading/interpreti ng unformatted reports. ? Name: ? DOTTIE DENNIS ? Accession #: ? [id number] ? : ? 1985 (Age: 23) ??F ?Collect Date: ? 08/09/2008 ? Location: ? [facility] ? Receive Date: ? 08/16/2008 ? Provider: ?KIRSTIN SUBRAMANIAN ? Copy to: ? Specimen/Source: ?Pap Test, Cervix/Endocervix, ThinPrep Imaging System ? with manual evaluation ? Last Menstrual Period: ? 11/8/08 ? Other: ? HPVA - HPV testing requested if ASC-US on the current ThinPrep Pap test. ? SPECIMEN ADEQUACY ? Satisfactory for Evaluation ? - transformation zone component absent ? GENERAL CATEGORIZATION ? Negative for Intraepithelial Lesion or Malignancy ? Document reviewed and electronically signed by: ? Tomasz Mcneal, CT(ASCP) ? Report Date: ??08/17/2008 13:32 ? End of Report ? [facility] 08/09/2008 08/16/2008 Kirstin SUBRAMANIAN PATHOLOGY ORDERABLES Final Result [facility] [address] [place] [address] documented in this encounter Visit Diagnoses Not on filedocumented in this encounter
--- OUTSIDE RECORDS SUMMARY | 2024-10-20 11:46 | XMS_ITS | Encounter Summary ---
Author Organization [facility] Address [address] [place] [address] Care Team Providers Care Modeling Analyst Name Role Phone Lindsey Escudero Primary Care Provider [phone] Encounter Details Date Type Department Care Team ([facility] st Contact Info) Description 11/23/2019 Lab Requisition [facility] Pathology & Laboratory Medicine - [address] [address] Lawrence Peoples V [address] [address] Encounter for other general examination Social History [...] Date/Time Associated Diagnosis Comments SURGICAL PATHOLOGY Today 11/22/2019 16 :23 EDT Encounter for other general examination documented in this encounter Results * SURGICAL PATHOLOGY (11/22/2019 16:23 EDT) Final Diagnosis A. FALLOPIAN TUBE, RIGHT, SALPINGECOMTY: - Tubal ectopic gestation. 11/24/2019 11:51 EDT [facility] at 1151 Clinical History Ruptured R ectopic 11/24/2019 11:51 EDT [facility] Attestation By the signature below, the attending physician certifies that they have 1) personally conducted a gross and/or microscopic examination of the described specimen(s), and/or personally interpreted the results of laboratory testing of the described specimen(s), and 2) personally rendered or confirmed the above diagnosis. 11/24/2019 11:51 EDT [facility] at 1151 Gross Description A. Received in formalin labelled with proper patient identification (initials H, I) and right ruptured ectopic is a 4.0 cm in length by 1.1 cm in diameter fimbriated fallopian tube. The serosa is mostly smooth and pink-urena. No perforations are identified. Sectioning reveals a dilated lumen filled with red-brown blood clot. Chorionic villi are identified. No parts are present. The specimen is entirely submitted in A 1-A5. Loren Harini 11/23/2019 11:13 11/24/2019 11:51 EDT [facility] Scanned Images 11/24/2019 11:51 EDT [facility] Tissue ENTIRE FALLOPIAN TUBE / Unknown 11/22/2019 16:23 EDT 11/23/2019 10:50 EDT us Lawrence Peoples V PATHOLOGY ORDERABLES Final Resul t [facility] [address] [place] [address] documented in this encounter Visit Diagnoses Diagnosis Encounter for other general examination documented in this encounter Care Teams Modeling Analyst Relationship Specialty Start Date End Date iLndsey Escudero ARNP [address] [place] [address] PCP - General 11/22/19 documented as of this encounter
--- OUTSIDE RECORDS SUMMARY | 2024-10-20 11:46 | XMS_ITS | Encounter Summary ---
Author Organization [facility] Address [facility] [place] [address] Care Team Providers Care Wardrobe Supervisor Name Role Phone Elisa Fox DAY CARE HOME PROVIDER Primary Care Provider Encounter Details Date Type Department Care Team ([facility] st Contact Info) Description 08/28/2024 12:45 PM EST Ancillary Procedure Radiology [place] [id number] Unknown None Social History Tobacco Use Types [...] Associated Diagnosis Comments FILM LIBRARY STORAGE ONLY CT HEAD Routine 08/28/2024 12:45 PM EST documented in this encounter Results * Film Library- Storage Only CT Head (08/28/2024 12:45 PM EST) 09/02/2024 12:2 0 PM EST Narrative [facility] - 09/02/2024 12:20 PM EST This exam is auto-finalizing. It's purpose is for storage only. Unknown IMG FILM LIBRARY ORD ERABLES [place], [place] documented in this encounter Visit Diagnoses Not on filedocumented in this encounter Care Teams Wardrobe Supervisor Relationship Specialty Start Date End Date Elisa Fox APRN [address] [place] [address] PCP - General Family Medicine 06/29/24 documented as of this encounter
--- OUTSIDE RECORDS SUMMARY | 2024-10-20 11:46 | XMS_ITS | Continuity of Care Document ---
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 [...] stenosis of cervical region Confirmed Active Results Radiology Reports * Exam Date Time Procedure Performing Provider Status 08/10/24 2:41 PM MG Mammo Screening Bilateral Raymond Khan; Auth (Verified) Notes: (MG Mammo Screening Bilateral) Reason For Exam: Z12.31-Encounter for screening mammogram for malignant neoplasm of breast;Z12.31-Encounter for screening mammogram for malignant neoplasm of breast MG Mammo Screening Bilateral EXAM DESCRIPTION: MG Mammo Screening Bilateral 08/10/2024 INDICATION: Z12.31-ENCOUNTER FOR SCREENING MAMMOGRAM FOR MALIGNANT NEOPLASM OF BREAST COMPARISON: None available BREAST DENSITY: The breasts are heterogeneously dense which may obscure small masses. FINDINGS: MLO and CC views were performed with digital breast tomosynthesis. Images were reviewed using computer aided detection. No asymmetry, architectural distortion or suspicious grouping of calcifications to suggest malignancy in either breast. ASSESSMENT: No mammographic evidence of malignancy. Negative. BI-RADS category 1. RECOMMENDATION: Screening mammography in 1 year JOB #: [id number] Final Signed by: Akil Ratliff MD Signed (Electronic Signature): 08/10/2024 3:37 pm Social History Social History Type Response Tobacco Tobacco use status u nknown Tobacco Use:. Sex Sex Representation Female (finding) Patient Care team information Care Team Personnel Name: FLORENTIN MANZANARES APRN Position: No Access Member Role: Primary Care Physician Address: [address] [place] [address] Care Team Related Persons Name: NANCY BUTTS I Name: MARTHA GUERRERO Insurance Providers Guarantor name: DOTTIE BUTTS Health Plan Information #: 1 Payer: [employer] Member Number: [id number] Policy Number: NA Health Plan Information #: 2 Payer: [employer] Member Number: [id number] Policy Number: NA Health Plan Information #: 3 Payer: TABATHA Member Number: NA Policy Number: NA
--- OUTSIDE RECORDS SUMMARY | 2024-10-20 11:46 | XMS_ITS | Encounter Summary ---
[place] [address] Care Team Providers Care Marriage Therapist Name Role Phone Kota Eagle APRN, Nicole Primary Care Provider + Encounter Details Date Type Department Care Team (Late st Contact Info) Description 07/15/2018 External Results [place] [address] Provider, Scanning Social History Tobacco Use Types Packs/Day Years Used Date Smoking Tobacco: Never Assessed Sex and Gender Information Value Date Recorded Sex Assigned at Not on file Gender Identity Not on file Sexual Orientation Not on file documented as of this encounter Plan of Treatment Not on file documented as of this encounter Procedures Procedure Name Priority Date/Time Associated Diagnosis Comments XR CERVICAL SPINE AP FLEXION AND EXTENSION ONLY Routine 06/06/2018 documented in this encounter Results * XR Cervical Spine AP Flexion & Extension Only (06/06/2018) Anatomical Region Laterality Modality C-spine N/A Radiographic Bertha ging Historical Provider MD AGUILAR DX ORDERABLES documented in this encounter Visit Diagnoses Not on filedocumented in this encounter Care Teams Marriage Therapist Relationship Specialty Start Date End Date Lindsey Escudero APRN PCP - General 08/07/10 07/09/23 documented as of this encounter
--- OUTSIDE RECORDS SUMMARY | 2024-10-20 11:46 | XMS_ITS | Encounter Summary ---
Author Organization [facility] Address [address] [place] [address] Care Team Providers Care Acquisition Advisor Name Role Phone Lindsey Escudero Primary Care Provider Unknown, Provider Primary Care Provider Unava ilable Encounter Details Date Type Department Care Team (Late st Contact Info) Description 01/21/2007 Results Only [facility] - Maple conversion [address] [place] [address] Mayela Floyd ARNP [address] [place] [address] Social History Tobacco Use Types Packs/Day Years [...] Date/Time Associated Diagnosis Comments SURGICAL PATHOLOGY Routine 01/21/2007 0:00 EDT documented in this encounter Results * SURGICAL PATHOLOGY (01/21/2007 0:00 EDT) Pathology Report: SURGICAL PATHOLOGY REPORT Reports generated via electronic interface contain original data; however they are lacking the format of the original report. Caution should be taken when reading/interpreti ng unformatted reports. Name: ? DOTTIE GARCIA ? Accession #: ? [id number] ? : ? 1985 (Age: 21) ??F ? Collect Date: ? 01/21/2007 ? Location: ? [facility] ? Receive Date: ? 01/22/2007 ? Provider: MAYELA SUBRAMANIAN Copy to: MORE ANTONIO MD ? Final Pathologic Diagnosis: ? Skin of arm, left upper, punch biopsy: 1. ?Blue nevus. ? - Nevus extends to peripheral edges and base of punch biopsy specimen. Microscopic Description: ? Sections are of a low papule. ??The epidermis is generally unremarkable. The junctional melanocytes are normal in number and morphology. ??Within the reticular dermis, there is a proliferation of spindle-shaped melanocytes including bipolar and dendritic forms. ??The latter have elongate cytoplasmic processes containing abundant coarse melanin pigment. ??The nuclei are relatively uniform, elongate, and have tapered ends. ??The melanocytes are associated with thickened collagen bundles and clusters of melanophages. ??The proliferation is overall symmetric and wedge-shaped. ??(Dr. Aiken)/jbm Document reviewed and electronically signed by: Estefany Aiken MD Report ??Date: 01/26/2007 14:48 By the signature above, the attending physician certifies that he/she has personally conducted a gross and/or microscopic examination of the described specimens and rendered or confirmed the above diagnosis. Specimen(s) Received: ? 2 mm punch biopsy atypical skin nevus Clinical History: ? L upper arm atypical skin nevus Gross Description: ? Received in formalin labelled Lawrence is a 0.2 cm in diameter by 0.1 cm in depth dark urena punch biopsy of skin which is submitted intact in one cassette. (Galina Carranza ??SB)/jbm End of Report [facility] 01/21/2007 01/22/2007 0:4 0 EDT us Mayela SUBRAMANIAN PATHOLOGY ORDERABLES Final Re sult [facility] [address] [place] [address] documented in this encounter Visit Diagnoses Not on filedocumented in this encounter Care Teams Acquisition Advisor Relationship Specialty Start Date End Date Lindsey Escudero ARNP [address] [place] [address] PCP - General 03/07/10 03/11/16 Unknown, Provider, PCP - General 05/01/09 03/06/10 documented as of this encounter
--- OUTSIDE RECORDS SUMMARY | 2024-10-20 11:46 | XMS_ITS | Encounter Summary ---
Author Organization [facility] [place] [address] Care Team Providers Care Rivet Tester Name Role Phone Elisa Fox APRN Primary Care Provider Encounter Details Date Type Department Care Team (Late st Contact Info) Description 07/09/2024 [place]phone [place] [address] Carla Alex Social History Tobacco Use Types Packs/Day Years Used Date Smoking Tobacco: Every Day Cigarettes Smokeless Tobacco: Never Sex and Gender Information Value Date Recorded Sex Assigned at Not on file Gender Identity Not on file Sexual Orientation Not on file documented as of this encounter Miscellaneous Notes * Telephone Encounter - Carla Alex - 07/09/2024 10:34 AM EDT LM (3rd)asking pt to return call to schedule a Smoking cessation apptmt. Ref to be closed/unable toreach pt documented in this encounter Plan of Treatment Not on file documented as of this encounter Visit Diagnoses Not on filedocumented in this encounter Care Teams Rivet Tester Relationship Specialty Start Date End [place] [address] PCP - General Family Medicine 06/29/24 documented as of this encounter
--- OUTSIDE RECORDS SUMMARY | 2024-10-20 11:46 | XMS_ITS | Encounter Summary ---
Author Organization [facility] Address [address] [place] [address] Care Team Providers Care Distribution Tech Name Role Phone Unknown, Provider Primary Care Provider Unava ilable Encounter Details Date Type Department Care Team (Late st Contact Info) Description 01/29/[address] [facility] - [facility] [address] [place], [place] [address] Robi Devries MD [address] [place] [address] Social History Tobacco Use Types Packs/Day Years [...] Priority Date/Time Associated Diagnosis Comments CYTOPATHOLOGY Routine 01/29/2010 0:00 EDT documented in this encounter Results * CYTOPATHOLOGY (01/29/2010 0:00 EDT) Pathology Report: CYTOPATHOLOGY REPORT ? Reports generated via electronic interface contain original data; ? however they are lacking the format of the original report. ? Caution should be taken when reading/interpreti ng unformatted reports. ? Name: ? DOTTIE GARCIA ? Accession #: ? [id number] ? : ? 1985 (Age: 24) ??F ?Collect Date: ? 01/29/2010 ? Location: ? [facility] ? Receive Date: ? 01/31/2010 ? Provider: ?ROBI DEVRIES MD ? Copy to: ? Specimen/Source: ?Pap Test, Vagina/Cervix/Endo cervix, ThinPrep Imaging ? System with manual evaluation ? Last Menstrual Period: ? Menstrual/Pregnanc y Status: ? Post ? Other: ? Additional clinical information: benign pap 10/08 & 08/09 ? SPECIMEN ADEQUACY ? Satisfactory for Evaluation ? - transformation zone component present ? GENERAL CATEGORIZATION ? Negative for Intraepithelial Lesion or Malignancy ? Document reviewed and electronically signed by: ? Tomasz Abeller, CT(ASCP) ? Report Date: ??02/02/2010 14:30 ? End of Report ? [facility] 01/29/2010 01/31/2010 us Robi Devries MD PATHOLOGY ORDERABLES Final Resu lt [facility] [address] [place] [address] documented in this encounter Visit Diagnoses Not on filedocumented in this encounter Care Teams Distribution Tech Relationship Specialty Start Date End Date Unknown, Provider, PCP - General 05/01/09 03/06/10 documented as of this encounter
--- OUTSIDE RECORDS SUMMARY | 2024-10-20 11:46 | XMS_ITS | Encounter Summary ---
Author Organization [facility] Address [address] [place] [address] Care Team Providers Care Slip Injector And Applicator Name Role Phone Lindsey Escudero Primary Care Provider Encounter Details Date Type Department Care Team (Late st Contact Info) Description 06/09/2020 Lab Requisition [facility] Pathology & [place] [address] Ruslan Rutldege MD [address] [place] [address] Delayed or excessive hemorrhage following incomplete spontaneous Social History Tobacco Use Types Packs/Day Years [...] Date/Time Associated Diagnosis Comments SURGICAL PATHOLOGY Today 06/09/2020 11 :37 EDT Delayed or excessive hemorrhage following incomplete spontaneous documented in this encounter Results * SURGICAL PATHOLOGY (06/09/2020 11:37 EDT) Final Diagnosis A. INTRAUTERINE CONTENTS, EVACUATION: - Gestational-type endometrium and decidua. See comment. 06/15/2020 12:45 [facility] Diagnosis Comment This case was reviewed in conjunction with the recent products of conception specimen ([id number]). Nip Wrapper slides of this case were reviewed at the intradepartmental consultation conference. 06/15/2020 12:45 [facility] Attestation There was significant resident/fellow involvement in the diagnostic evaluation of this case. By the signature below, the attending physician certifies that they have personally conducted a gross and/or microscopic examination of the described specimens and rendered or confirmed the above diagnosis. 06/15/2020 12:45 [facility] at 1245 Clinical History Incomplete complicated by hemorrhage; clinical diagnosis code: O03.1 06/15/2020 12:45 [facility] Gross Description A. Received in formalin labelled with proper patient identification (initials H, I) and uterine contents is an aggregate of brown-urena soft tissue admixed with blood clot (7.0 x 6.3 x 1.2 cm), including villous tissue. parts are not present. Nip Wrapper sections are submitted in A1-A3. NIGEL TSE 06/12/2020 9:22 06/15/2020 12:45 [facility] Resident/Fell ow: Alli Mcallister MD 06/15/2020 12:45 [facility] Performing Lab [facility] 06/15/2020 12:45 [facility] Scanned Images 06/15/2020 12:45 [facility] Tissue PRODUCTS OF CONCEPTION TISSUE SPECIMEN / Unknown 06/09/2020 11:37 EDT 06/09/2020 18:05 EDT us Ruslan Rutledge MD PATHOLOGY ORDERABLES Final Res ult [facility] [address] [place] [address] documented in this encounter Visit Diagnoses Diagnosis Delayed or excessive hemorrhage following incomplete spontaneous Incomplete spontaneous complicated by delayed or excessive hemorrhage documented in this encounter Care Teams Slip Injector And Applicator Relationship Specialty Start Date End Date Lindsey Escudero ARNP [address] [place] [address] PCP - General 11/22/19 documented as of this encounter
--- OUTSIDE RECORDS SUMMARY | 2024-10-20 11:46 | XMS_ITS | Referral Summary ---
Author Organization [facility] Address [address] [place] [address] Care Team Providers Care Rubber Vulcanizing Machine Operator Name Role Phone MarcosadiqLindsey Primary Care Provider Social History Tobacco Use Types Packs/Day Years Used Date Smoking Tobacco: Never Assessed Interpersonal Safety Answer Date Record ed Physically Hurt Never 04/16/2020 Verbally Threaten Not on file 04/16/2020 Comments Unknown Sex and Gender Information Value Date Recorded Sex Assigned at Not on file Legal Sex Female 18:39 EST Gender Identity Not on file Sexual Orientation Not on file Plan of Treatment Not on file Insurance [facility] Care Teams Rubber Vulcanizing Machine Operator Relationship Specialty Start Date End Date Lindsey Escudero ARNP [address] [place] [address] PCP - General 11/22/19
--- OUTSIDE RECORDS SUMMARY | 2024-10-20 11:46 | XMS_ITS | Encounter Summary ---
Author Organization [facility] Address [facility] [place] [address] Care Team Providers Care Maintenance Specialist Name Role Phone Kota Eagle APRN, Nicole Primary Care Provider + Reason for Visit * Reason Onset Date Comments Results 10/02/2012 [email or web address] Encounter Details Date Type Department Care Team (Late st Contact Info) Description 10/02/2012 Telephone [facility] [address] [place] [address] Yanick Michel Jr., MD Results ([email or web address]) Social History Tobacco Use Types Packs/Day Years Used Date Smoking Tobacco: Never Assessed Sex and Gender Information Value Date Recorded Sex Assigned at Not on file Gender Identity Not on file Sexual Orientation Not on file documented as of this encounter Miscellaneous Notes * Telephone Encounter - Yanick Michel Jr., MD - 10/02/2012 12:37 PM EST Result faxed and scanned in documented in this encounter Plan of Treatment Not on file documented as of this encounter Procedures Procedure Name Priority Date/Time Associated Diagnosis Comments HOLTER MONITOR 24 HOUR Routine 10/02/2012 documented in this encounter Results * Holter Monitor 24hr (10/02/2012) Anatomical Region Laterality Modality Other Narrative 10/02/2012 Lzu Garcia ?: 1985 PCP: Lindsey Escudero APRN Holter Report- Final [facility], [address] [place] [facility] [address] Date of application: 09/28/2012 ?Date of Scan: 10/02/2012 ? Date of Interpretation: 10/02/2012 Indication: palpitations Baseline Rhythm: NSR Symptoms: log kept- frequent palpitations, dizziness, no correlation with heart rate or arrhythmias Report: Minimum HR: 46 (sleep) Average HR: 73 Maximum HR: 127 Ventricular- VPC: 3 Couplets: 0 VT: 0 1 3 beat AIVR @ 52 during sleep Atrial- APC: 10 Couplets: 1 SVT: 0 Summary: ?NSR throughout, rare APC and VPC, no higher grade ectopy, frequent palpitations and dizziness reported without correlation with heart rate or premature beats Electronically signed: Yanick Michel Jr, MD FAC Historical Provider CARDIAC SERVICES ORDERABLES documented in this encounter Visit Diagnoses Not on filedocumented in this encounter Care Teams Maintenance Specialist Relationship Specialty Start Date End Date Lindsey Escudero APRN PCP - General 08/07/10 07/09/23 documented as of this encounter
--- OUTSIDE RECORDS SUMMARY | 2024-10-20 11:46 | XMS_ITS | Encounter Summary ---
Author Organization [facility] [place] [address] Care Team Providers Care Entry Level Sales Consultant Name Role Phone Elisa Fox APRN Primary Care Provider Encounter Details Date Type Department Care Team ([facility] st Contact Info) Description 08/28/2024 Interpretation Only Radiology Library at [facility] [place] [id number] Unknown None Social History Tobacco Use Types [...] EST) 09/02/2024 12:2 0 PM EST Narrative [facility] 09/02/2024 12:20 PM EST This exam is auto-finalizing. It's purpose is for storage only. Unknown IMG FILM LIBRARY ORD ERABLES [place], [place] documented in this encounter Visit Diagnoses Not on filedocumented in this encounter Care Teams Entry Level Sales Consultant Relationship Specialty Start Date End Date Elisa Fox APRN [address] [place] [address] PCP - General Family Medicine 06/29/24 documented as of this encounter
--- OUTSIDE RECORDS SUMMARY | 2024-10-20 11:46 | XMS_ITS | Encounter Summary ---
Author Organization [facility] Address [address] [place] [address] Care Team Providers Care Child Support Case Officer Name Role Phone Kirstin Escudero Primary Care Provider Unknown, Provider Primary Care Provider Unava ilable Encounter Details Date Type Department Care Team (Late st Contact Info) Description 06/24/2007 Results Only [facility] [address] [place] [address] Kirstin Escudero ARNP [address] [place] [address] Social History Tobacco Use Types Packs/Day Years [...] Priority Date/Time Associated Diagnosis Comments CYTOPATHOLOGY Routine 06/24/2007 0:00 EDT documented in this encounter Results * CYTOPATHOLOGY (06/24/2007 0:00 EDT) Pathology Report: CYTOPATHOLOGY REPORT Reports generated via electronic interface contain original data; however they are lacking the format of the original report. Caution should be taken when reading/interpreti ng unformatted reports. Name: ? DOTTIE GARCIA ? Accession #: ? [id number] : ? 1985 (Age: 22) ??F ?Collect Date: ? 06/24/2007 Location: ? [facility] ? Receive Date: ? 06/26/2007 Provider: ?KIRSTIN SUBRAMANIAN Copy to: ? Specimen/Source: ?ThinPrep Pap Test, Cervix/Endocervix, processed on [employer] MCI ThinPrep Imaging System, with manual evaluation Last Menstrual Period: ? 06/15/07 Hormonal/Contracep tive Status: ? Yes Other: ? HPVA - HPV testing requested if ASC-US on the current ThinPrep Pap test. ? SPECIMEN ADEQUACY ? Satisfactory for Evaluation - transformation zone component present GENERAL CATEGORIZATION ? Negative for Intraepithelial Lesion or Malignancy ? Document reviewed and electronically signed by: ? JESSEE Sandoval(ASCP) ? Report Date: ??07/02/2007 15:42 End of Report [facility] 06/24/2007 06/26/2007 us Kirstin SUBRAMANIAN PATHOLOGY ORDERABLES Final Result [facility] [address] [place] [address] documented in this encounter Visit Diagnoses Not on filedocumented in this encounter Care Teams Child Support Case Officer Relationship Specialty Start Date End Date Kirstin Escudero ARNP [address] [place] [address] PCP - General 03/07/10 03/11/16 Unknown, Provider, PCP - General 05/01/09 03/06/10 documented as of this encounter
--- OUTSIDE RECORDS SUMMARY | 2024-10-20 11:46 | XMS_ITS | Encounter Summary ---
Author Organization [facility] Address [address] [place] [address] Care Team Providers Care Fundraising Coordinator Name Role Phone Unknown, Provider Primary Care Provider Unava ilable Encounter Details Date Type Department Care Team (Late st Contact Info) Description 03/05/2010 Results Only [facility] Services - [facility] [address], [place] [id number] Tristen Guerin, DO [address] [place] [address] Social History Tobacco Use Types Packs/Day Years [...] Date/Time Associated Diagnosis Comments SURGICAL PATHOLOGY Routine 03/05/2010 0:00 EDT documented in this encounter Results * SURGICAL PATHOLOGY (03/05/2010 0:00 EDT) Pathology Report: SURGICAL PATHOLOGY REPORT ? Reports generated via electronic interface contain original data; ? however they are lacking the format of the original report. ? Caution should be taken when reading/interpreti ng unformatted reports. ? Name: ? BENJAMÍN, DOTTIE ? Accession #: ? [id number] ? : ? 1985 (Age: 24) ??F ? Collect Date: ? 03/05/2010 ? Location: ? [facility] ? Receive Date: ? 03/06/2010 ? Provider: TRISTEN GUERIN DO ? Copy to: KIRSTIN FISCHLER TOLL GATE TENDER ? Final Pathologic Diagnosis: ? A. ?Duodenum, 2nd portion, biopsy: ? 1. ?Duodenal mucosa with no pathologic features. ? B. ?Stomach, antrum, biopsy: ? 1. ?Antral mucosa with no pathologic features. ? Document reviewed and electronically signed by: ? GERMAN Haile BUTNOR MD ? Report ??Date: 03/08/2010 15:52 ? By the signature above, the attending physician certifies that he/she has ? personally conducted a gross and/or microscopic examination of the described ? specimens and rendered or confirmed the above diagnosis. ? Specimen(s) Received: ? A. ?2nd portion duodenum ? B. ? Antrum ? Clinical History: ? R/O sprue ? Gross Description: ? Received in [facility]'s labelled Garcia, Eugene and 2nd portion duodenum ?? are four urena-pink tissues ranging from 0.1 x 0.1 x 0.1 cm to 0.9 x 0.1 x 0.1 cm. The specimens are submitted entirely as (A1) and (A2). ? Received in [facility]'s labelled Garcia, Dottie and antrum are two urena-pink ? tissues measuring 0.2 x 0.2 x 0.1 cm and 0.6 x 0.1 x 0.1 cm. ??The specimens are submitted entirely as (B). ??(Daisy Partida)/[place] ? End of Report ? [facility] 03/05/2010 03/06/2010 8:3 1 EDT us Tristen Guerin DO PATHOLOGY ORDERABLES Final Resul t [facility] [address] [place] [address] documented in this encounter Visit Diagnoses Not on filedocumented in this encounter Care Teams Fundraising Coordinator Relationship Specialty Start Date End Date Unknown, Provider, PCP - General 05/01/09 03/06/10 documented as of this encounter
--- OUTSIDE RECORDS SUMMARY | 2024-10-20 11:46 | XMS_ITS | Encounter Summary ---
Author Organization [facility] [place] [address] Care Team Providers Care Medical Insurance Verifier Name Role Phone Elisa Fox APRN Primary Care Provider Encounter Details Date Type Department Care Team (Late st Contact Info) Description 07/05/2024 Telephone [place] [address] Carla Alex Social History Tobacco Use Types Packs/Day Years Used Date Smoking Tobacco: Every Day Cigarettes Smokeless Tobacco: Never Sex and Gender Information Value Date Recorded Sex Assigned at Not on file Gender Identity Not on file Sexual Orientation Not on file documented as of this encounter Miscellaneous Notes * Telephone Encounter - Carla Alex - 07/05/2024 1:04 PM EDT LM asking pt to return call to schedule a Smoking Cessation apptmt documented in this encounter Plan of Treatment Not on file documented as of this encounter Visit Diagnoses Not on filedocumented in this encounter Care Teams Medical Insurance Verifier Relationship Specialty Start Date End Date Elisa Fox APRN [address] [place] [address] PCP - General Family Medicine 06/29/24 documented as of this encounter
--- OUTSIDE RECORDS SUMMARY | 2024-10-20 11:46 | XMS_ITS | Encounter Summary ---
Author Organization [facility] [place] [address] Care Team Providers Care Tax Lawyer Name Role Phone Kota Eagle APRN, Nicole Primary Care Provider + Reason for Visit * Reason Comments Neck Pain * Consultation (Routine) - Specialty Diagnoses / Procedures Referred By Contac t Referred To Contact Orthopaedics Diagnoses Cervical radiculopathy/ XR 06/06/18 @ ?[facility] Lindsey Escudero APRN [address] [place] [address] [facility] [address] [place] [id number] Referral ID Status Reason Start Date Expiration Date V isits Requested Visits Authorized [id number] Consult[facility] 06/17/2018 06/17/2019 6 6 Encounter Details Date Type Department Care Team (Latest Contact Info) Description 07/14/2018 8:20 AM EDT Office [place] [address] Randall Maciel PA Herniation of cervical intervertebral disc with radiculopathy Social History Tobacco Use Types Packs/Day Years Used Date Smoking Tobacco: Never Assessed Sex and Gender Information Value Date Recorded Sex Assigned at Not on file Gender Identity Not on file Sexual Orientation Not on file documented as of this encounter Progress Notes * Randall Maciel PA - 07/14/2018 8:20 AM EDT Luz Garcia is a 33-year-old female seen today for chief complaint of acute 9- week history of neck pain and left upper extremity pain and numbness. She tells me that symptoms began after chiropractic manipulations. He has a long-standing history of headaches which she describes a sense of pressure in the back of her head along with a sense of tightness in her neck but over the past 2 months, she has been having radiating left upper extremity symptoms that she feels involving her left posterior shoulder with a sense of spasms and overactivity, that goes into her elbow, forearm, and affects her index middle and thumb on the left hand. She denies right-sided symptoms currently. She has undergone several treatments so far having trialed oral prednisone which is not effective. 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 Otherwise she has been taking Tylenol and ibuprofen which have been effective, and has been taking gabapentin 300 mg in the morning and 600 mgat night which is also been useful. She mentions having gotten Toradol by mouth and this appears tohave been very potent in controlling her pain. She was trialed Flexeril which was not really working for her. She is otherwise been using Robaxin. She had one cervical epidural steroidal injection atthe beginning of June 2018 and thinks that she has had some relief with that and she actually canceled the repeat injection. She denies prior spine surgery. She does report prior right shoulder surgery for labral repair. She currently smokes about 1/2 pack/day. 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 On exam today this is a pleasant trim 33-year-old female. Her neck and upper back are unremarkable to inspection. She is able to bend the neck forward about 40 degrees with increasing pain over her neck and left arm, extends without restrictions, rotates 60 degrees on the right, 45 degrees on the left with increasing pain. Positive Spurling's maneuver on the left side reproducing symptoms up to her forearm, index and middle fingers, negative on the right. Reflexes are symmetric +2 throughout. Motor exam is without focal deficits. Sensory exam shows diminished sensation over the index and middle fingers of the left hand, otherwise full sensation. We reviewed her cervical spine MRI and plain x-rays performed in 2018. This is most significant forfindings of disc dehydration and broad-based disc bulging at C5-C6 without significant neural compression but at C6-C7, there is a left-sided disc herniation with an extruded fragment impinging on the exiting left C7 nerve root. No cord compression noted and no right-sided neural compression at that level. Remaining levels of the cervical spine show well-preserved disc and vertebral body heights without significant degenerative change. Assessment/plan: Luz Garcia is a 33-year-old female seen today for chief complaint of acute neckand left upper extremity pain in the context of a left C6-C7 disc herniation causing her left C7 radiculopathy. It appears that her pain has been improving to an extent, and otherwise she mostly has numbness and paresthesias this point. I discussed with her the natural history of cervical disc herniations and cervical radiculopathy. I did inform that it may be likely that she may continue to resolve her symptoms over time as the disc herniation resorbs, or her symptoms may be progressive or fail to improve in which case we can discuss further management such as continued medication use, repeat cervical epidural steroidal injection, versus spine surgery which at minimum would have to consist of a C6-C7 anterior cervical discectomy and fusion. I did recommend that smoking cessation would be highly recommended prior to considering surgery due to concern for pseudoarthrosis. For now she is doing fairly well and will monitor her symptoms progress over time. documented in this encounter Plan of Treatment Not on file documented as of this encounter Visit Diagnoses Diagnosis Herniation of cervical intervertebral disc with radiculopathy Displacement of cervical intervertebral disc without myelopathy documented in this encounter Care Teams Tax Lawyer Relationship Specialty Start Date End Date Lindsey Escudero APRN PCP - General 08/07/10 07/09/23 documented as of this encounter
--- OUTSIDE RECORDS SUMMARY | 2024-10-20 11:46 | XMS_ITS | Encounter Summary ---
Author Organization [facility] Address [facility] [place] [address] Care Team Providers Care Manager Change Name Role Phone Kota Eagle APRN, Nicole Primary Care Provider + Encounter Details Date Type Department Care Team (Latest Contact Info) Description 06/06/2018 - 06/06/2018 11:59 PM EDT Hospital Encounter Radiology Library at [facility] [place] [phone] Chapincito Farrar MD Discharge Disposition: Home Social [...] acid (FOLVITE) 400 mcg Tablet 0 05/04/2018 HYDROcodone-acetaminoph en (VICODIN) 5-300 mg Tablet TAKE 1 TABLET BY MOUTH EVERY 8 HOURS NEEDED 0 02/02/2018 06/29/2024 clindamycin (CLEOCIN) 150 mg Capsule TAKE 3 CAPSULES (450 MG) BY MOUTH THREE TIMES A DAY FOR 10 DAYS 0 02/02/2018 06/29/2024 cyclobenzaprine (FLEXERIL) 5 mg Tablet take 1 tablet by mouth every 12 hours if needed for MUSCLE RELAXATION 0 06/05/2018 06/29/2024 VITS W-CA,FE,FA,<1MG, ( VITAMIN ORAL) 10/21/200906/15 documented as of this encounter Plan of Treatment Not on file documented as of this encounter Procedures Procedure Name Priority Date/Time Associated Diagnosis Comments FILM LIBRARY STORAGE ONLY DX SPINE Routine 06/06/2018 12:00 AM EDT documented in this encounter Results * Film Library- Storage Only DX Spine (06/06/2018 12:00 AM EDT) Narrative [facility] - 07/13/2018 2:04 PM EDT This exam is for storage only and is auto-finalizing. Chapincito Farrar MD IMG FILM LIBRARY ORD ERABLES [place], [place] documented in this encounter Visit Diagnoses Not on filedocumented in this encounter Care Teams Manager Change Relationship Specialty Start Date End Date Lindsey Escudero APRN PCP - General 08/07/10 07/09/23 documented as of this encounter
--- OUTSIDE RECORDS SUMMARY | 2024-10-20 11:46 | XMS_ITS | Encounter Summary ---
Author Organization Formerly [place] [address] Care Team Providers Care Hotel Administrative Assistant Name Role Phone Elisa Fox APRN Primary Care Provider Reason for Referral * Consultation (Routine) - Closed Specialty Diagnoses / Procedures Referred By Yariel wilhelm Referred To Contact Diagnoses Cigarette smoker Antonio Rankin MD [facility] [place] [address] [facility] [place] [address] Referral ID Status Reason Start Date Expiration Date V isits Requested Visits Authorized [id number] Closed Consult, Test & Treat 06/29/2024 06/29/2025 1 1 Reason for Visit * Reason Comments Advice Only * Consultation (Routine) - Pending Review Specialty Diagnoses / Procedures Referred By Yariel t Referred To Contact Plastic Surgery Diagnoses BBR Consult Procedures BBR consult Elisa Fox APRN [address] [place] [address] [facility] [place]astic [place] [address] [address] Referral ID Status Reason Start Date Expiration Date Visits Requested Visits Authorized [id number] Pending Review Consult, Test & Treat PCP Updated and/or Approved 03/31/2024 03/31/2025 5 5 Encounter Details Date Type Department Care Team (Late st Contact Info) Description 06/29/2024 10:30 AM EDT [place] [address] Antonio Rankin MD [facility] [place] [address] Cigarette smoker Social History Tobacco Use Types Packs/Day Years Used Date Smoking Tobacco: Every Day Cigarettes Smokeless Tobacco: Never Tobacco Cessation:Ready to Q uit: Not Asked; Counseling Given: Not Answered Sex and Gender Information Value Date Recorded Sex Assigned at Not on file Gender Identity Not on file Sexual Orientation Not on file documented as of this encounter Last Filed Vital Signs Vital Sign Reading Time Taken Comments Blood Pressure - - Pulse - - Temperature - - Respiratory Rate - - Oxygen Saturation - - Inhaled Oxygen Concentration - - Weight 74 kg (163 lb 3.2 oz) 06/29/2024 10:25 AM EDT Height 160 cm (5' 3) 06/29/2024 10:25 AM EDT Body Mass Index 28.91 06/29/2024 10:25 AM EDT documented in this encounter Progress Notes * Antonio Rankin MD - 06/29/2024 10:30 AM EDT Plastic Surgery Consultation Note Antonio Rankin MD. PCP: Elisa Fox APRN GAS TURBINE POWERPLANT MECHANIC: None CC: Symptomatic macromastia HPI: Luz Garcia is a 39 y.o. female who presents today for evaluation of symptomatic macromastia. None has requested the consultation. She is accompanied for today???s visit by her boyfriend Ruslan. Patient admits to having back, neck, and shoulder pain, painful grooves in her shoulders from the weight of her breasts, rashes under her breasts, difficulty with vigorous activities, trouble finding bras and clothes that fit, poor posture and migraines. She reports that her cup size has been stable for at least 6 months. She current wears a DD and wishes to be a B cup. The patient has not had a mammogram yet. The patient admits to a history of B-12 deficiency, miscarriages and tachycardia. She had asthma but has not needed treatment in seven years. She has not had any work ups for factor 5 or blood clotting disorders. The patient is otherwise healthy. No lung, breathing, liver, kidney, hepatitis, diabetes, thyroid, seizure issues, bleeding or blood clotting disorder. The patient has had surgeries in the past with no anesthesia complications. The patient reports that she smokes cigarettes. No past medical history on file. No past surgical history on file. Examination: BMI: Ht 160 cm (5' 3) Wt 74 kg (163 lb 3.2 oz) BMI 28.91 kg/m?? BSA: Body surface area is 1.81 meters squared. Alert, oriented, conversant, and ambulating In no acute distress D+ cup size breasts No nipple retraction or discharge Nipples are sensate No obvious mass in either breast or axilla 1+ axillary rolls Some asymmetry R>L 100 grams Some active intertrigo along the right medial breast and intermammary folds Breast Measurements Right Left Ptosis Grade II Grade SN-N (cm) 29 cm 27 cm IMF-Nipple (cm) 10 cm 10 cm Anticipated resection: At least 500-600 grams from the Right breast and 500-600 grams from the Leftbreast. BSA [employer]/[place] All other / Schnur [id number] [id number] Impression: Symptomatic bilateral breast hypertrophy. Bilateral breast reduction is medically indicated for relief of her breast-related symptoms. She watched the CHRISTIAN video on breast reduction, and was provided with an ASPS brochure and informed consent on breast reduction. It reviews the surgicalrisks, alternate skin incisions and pedicle versus free nipple graft techniques. It also discusses the option of volume reduction by liposuction alone, which does not alter the nipple-areolar complexposition. It talks about the impact of this surgery on decreasing breast cancer risk. We reviewed the timing of surgery relative to weight fluctuations and I've advised that surgery is best done at a realistic penitentiary stable weight. We talked about the outpatient nature of the surgery, drains, postoperative recovery, and time required off work. Post- operative restrictions include no lifting, pushing, or pulling more than 5lbs for 4-6 weeks. Walking is fine and encouraged. We discussed that they should expect 70% of their result at 3 month's post op, however it takes a year to a [id number] for things to fully evolve. We discussed that ~85% of our patients typically manage their pain with Tylenol following surgery, however we do prescribe a small amount of narcotics for breakthrough pain. I discussed with the patient that I cannot guarantee a cup size after surgery, as there is no co nsistency in bra manufacturing. I dicussed in order to get the patient to her desired breast size we would need to remove 500-600 grams of tissue bilaterally. I think Luz Garcia would receive significant symptomatic relief from a bilateral breast reduction. We spoke about the expected outcomes as well as potential risks of surgery, including wound healing complications and changes to nipple sensation. The following risks were reviewed in the video or in our discussion: Breast Feeding Discussion: Although, not all women experience difficulty with breast feeding after breast reduction, we discussed the potential risk. We also discussed the potential risk in breast enlargement, should she decide to have children in the future. Surgical Risks which are greater with open reduction: bleeding with risk of hematoma (<5%); numbness, which may be temporary or permanent; scarring, including abnormal scarring; infection (5-10%);fat necrosis resulting in a breast mass and possible need for revision. I stressed the likelihood of minor problems with delayed wound healing (~30%) and the rare complication of nippleareolar necrosis. She is also aware that there may be some residual pain after the surgery and that there may possibly be some asymmetry. Cannon, [place], or Spair Pattern Incision: More scarring on breast, but lower risk for scar revision.(She was informed that her insurer might not cover secondary revisions for scarring or asymmetry.) Pedicle Technique: volume of reduction may be limited by need to provide an adequate blood supply to the nipple. There is a very small risk of nipple loss. Most women (~60%) will be able to breast-feed. Free Nipple Graft: The grafts will initially have no sensation and once fully healed may not respond to temperature and touch as they do now. She has also been informed that they may not look entirely normal and may have patchy hypopigmentation. She will not be able to breast feed with this technique. After fully discussing the options, she has opted to pursue a: x Bilateral Breast Reduction Cannon, Pedicle Bilateral Breast Reduction Cannon, Spair Bilateral Breast Reduction Cannon, FNG Luz Garcia is aware that this is a teaching institution and that I will likely perform this procedure with the assistance of a resident physician or two, meaning a physician who is in training to be a Plastic Surgeon. I discussed with the patient the importance of smoking cessation in regards to optimal healing results. I explained to them that there is an increased risk of healing complications actively smoking. Due to this they will be required to be off of all nicotine products for at least one month prior tosurgery. The patient is aware that they will be nicotine tested two weeks prior to surgery and again on the day of surgery. The patient will also need to obtain a mammogram prior to surgery, she reported that she can coordinate this with her PCP. Plan: Referral to smoking cessation Obtain Mammogram Karen Gasca have performed the documentation for this encounter in the presence of and acting as a scribe for Antonio Rankin MD. Antonio Gasca MD, performed the services which were documented by the scribe, and I agree with the accuracy of the documentation in this encounter. documented in this encounter Plan of Treatment Scheduled Referrals Name Type Priority Associated Diagnoses Orde r Schedule Referral to Smoking Cessation Program Outpatient Referral Routine Cigarette smoker Ordered: 06/29/2024 documented as of this encounter Visit Diagnoses Diagnosis Cigarette smoker Tobacco use disorder documented in this encounter Care Teams Hotel Administrative Assistant Relationship Specialty Start Date End Date Elisa Fox APRN [address] [place] [address] PCP - General Family Medicine 06/29/24 documented as of this encounter
--- OUTSIDE RECORDS SUMMARY | 2024-10-20 11:46 | XMS_ITS | Encounter Summary ---
Author Organization [facility]ly [facility] [place] [address] Care Team Providers Care Leasing Coordinator Name Role Phone Elisa Fox APRN Primary Care Provider Encounter Details Date Type Department Care Team ([facility] st Contact Info) Description 08/28/2024 Interpretation Only Radiology Library at [facility] [place] [id number] Unknown None Social History Tobacco Use Types [...] EST) 09/02/2024 12:2 0 PM EST Narrative [facility] - 09/02/2024 12:20 PM EST This exam is auto-finalizing. It's purpose is for storage only. Unknown IMG FILM LIBRARY ORD ERABLES [place], [place] documented in this encounter Visit Diagnoses Not on filedocumented in this encounter Care Teams Leasing Coordinator Relationship Specialty Start Date End Date Elisa Fox APRN [address] [place] [address] PCP - General Family Medicine 06/29/24 documented as of this encounter
--- OUTSIDE RECORDS SUMMARY | 2024-10-20 11:46 | XMS_ITS | Clinical Summary ---
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
--- OUTSIDE RECORDS SUMMARY | 2024-10-20 11:46 | XMS_ITS | Encounter Summary ---
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 Name Role Phone Unavailable Primary Care Provider Unavailabl e Encounter Details Date Type Department Care Team (Latest Contact Info) Description 01/21/2007 19:34 EDT Hospital Encounter [facility] [address] [place] [address] Mayela Floyd ARNP [address] [place] [address] MD [place] [id number] Discharge Disposition: Home or Self Care Social [...] Code Departure Means Destination Home or Self Care documented in this encounter Plan of Treatment Not on file documented as of this encounter Procedures Procedure Name Priority Date/Time Associated Diagnosis Comments CYTOPATHOLOGY Routine 04/26/2009 0:00 EDT documented in this encounter Results * CYTOPATHOLOGY (04/26/2009 0:00 EDT) Pathology Report: CYTOPATHOLOGY REPORT ? Reports generated via electronic interface contain original data; ? however they are lacking the format of the original report. ? Caution should be taken when reading/interpreti ng unformatted reports. ? Name: ? DOTTIE GARCIA ? Accession #: ? [id number] ? : ? 1985 (Age: 24) ??F ?Collect Date: ? 04/26/2009 ? Location: ? [facility] ? Receive Date: ? 05/01/2009 ? Provider: ?ROBI DEVRIES MD ? Copy to: ? Specimen/Source: ?Pap Test, Vagina/Cervix/Endo cervix, ThinPrep Imaging ? System with manual evaluation ? Last Menstrual Period: ? 7/5/09 ? Menstrual/Pregnanc y Status: ? SPECIMEN ADEQUACY ? Satisfactory for Evaluation ? - transformation zone component present ? GENERAL CATEGORIZATION ? Negative for Intraepithelial Lesion or Malignancy ? Document reviewed and electronically signed by: ? Ines Dennis, CT(ASCP) ? Report Date: ??05/04/2009 13:56 ? End of Report ? [facility] 04/26/2009 05/01/2009 us Robi Devries MD PATHOLOGY ORDERABLES Final Resu lt [facility] [address] [place] [address] documented in this encounter Visit Diagnoses Not on filedocumented in this encounter
[2024-10-20] MEDS: LORazepam 1 MG TAB PO (12:13)
[2024-10-20 12:36] VITALS: BP 123/63; PULSE 103; RESP 16; TEMP 36.6; O2SAT 98
--- NOTE | 2024-10-20 15:01 | ED.GENADUL_ITS ---
Discharge Plan Disposition Patient Disposition: Home Discharge Details Clinical Impression: Influenza A, Anxiety Primary Care Provider: FLORENTIN MANZANARES ED Provider: María Elena Larkin Home Meds and New Rx's Prescriptions: New fluticasone propionate 110 mcg/actuation HFA aerosol inhaler 2 inh inhalation BID Qty: 12 0RF Rx Instructions: administer with spacer Continued acetaminophen [Tylenol Extra Strength] 500 mg tablet 500 mg PO Q6H PRN ibuprofen 200 mg tablet 200 mg PO Q6H PRN citalopram 40 mg tablet 40 mg PO DAILY albuterol sulfate 90 mcg/actuation HFA aerosol inhaler 2 puff inhalation Q6H PRN folic acid 400 mcg tablet 800 mcg PO DAILY topiramate 25 mg tablet 25 mg PO BID Qty: 120 5RF Rx Instructions: Start 25mg BID x 1 week, then 50mg BID thereafter cyanocobalamin (vitamin B-12) [Vitamin B-12] 1,000 MCG tablet 5,000 mcg PO DAILY amitriptyline 25 MG tablet 50 mg PO HS Discharge Instructions Additional Instructions: Continue on your albuterol inhaler 2 puffs every 4-6 hours Try to continue with your smoking cessation 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 HPI Narrative: The patient is a 39-year-old female who presents with a report of influenza A, which was diagnosed on Friday. She was started on Tamiflu and prednisone at that time secondary to a history of asthma. She developed a rash on Friday, which worsened on Friday, leading to the discontinuation of Tamiflu due to a suspected medication reaction. She presents today due to feeling anxious, having stopped smoking 2 days ago and has not had any nicotine. She has been taking prednisone and has underlying anxiety. She reports feeling mostly stressed and is concerned about ongoing difficulty breathing. She does not have any chest pain or chance of . She does not have any nausea, vomiting, or diarrhea. She does not have any difficulty swallowing or spreading rash; in fact, she states the rash has improved. She finished her prednisone yesterday. She reports feeling mostly stressed and is concerned about ongoing difficulty breathing. She does not have any chest pain or chance of . She does not have any nausea, vomiting, or diarrhea. She does not have any difficulty swallowing or spreading rash; in fact, she states the rash has improved. She finished her prednisone yesterday. Related Data Home Medications ?Medication ?Instructions ?Recorded ?Confirmed amitriptyline 25 mg tablet 50 mg PO HS 02/02/18 10/20/24 cyanocobalamin (vitamin B-12) 5,000 mcg PO DAILY 02/02/18 10/20/24 1,000 mcg tablet (Vitamin B-12) acetaminophen 500 mg tablet 500 mg PO Q6H PRN 11/30/19 10/20/24 (Tylenol Extra Strength) ibuprofen 200 mg tablet 200 mg PO Q6H PRN 11/30/19 10/20/24 citalopram 40 mg tablet 40 mg PO DAILY 08/26/24 10/20/24 albuterol sulfate 90 mcg/actuation 2 puff inhalation Q6H PRN 08/30/24 10/20/24 aerosol inhaler folic acid 400 mcg tablet 800 mcg PO DAILY 08/30/24 10/20/24 topiramate 25 mg tablet 25 mg PO BID #120 tabs 09/06/24 10/20/24 fluticasone propionate 110 2 inh inhalation BID #12 grams 10/20/24 mcg/actuation HFA aerosol inhaler Previous Rx's ?Medication ?Instructions ?Recorded topiramate 25 mg tablet 25 mg PO BID #120 tabs 09/06/24 fluticasone propionate 110 2 inh inhalation BID #12 grams 10/20/24 mcg/actuation HFA aerosol inhaler Allergies Allergy/AdvReac Type Severity Reaction Status Date / Time acetazolamide Allergy Severe Anaphylaxis Verified 10/20/24 11:41 oseltamivir (From Tamiflu) Allergy Unknown rash? Verified 10/20/24 11:41 amoxicillin Allergy Other (See Unverified 10/20/24 11:41 Comment) Penicillins Allergy Other (See Unverified 10/20/24 11:41 Comment) tramadol Allergy Other (See Unverified 10/20/24 11:41 Comment) trazodone Allergy Other (See Unverified 10/20/24 11:41 Comment) tree nut Allergy Other (See Unverified 10/20/24 11:41 Comment) zolpidem (From Ambien) Allergy Other (See Unverified 10/20/24 11:41 Comment) General Stated Complaint: GenMedical ALDO: 4 Exam Narrative Exam Narrative: General Appearance: Patient is alert, oriented, and in no acute distress. Vital signs: Within normal limits. HEENT: Within normal limits. Respiratory: There is an expiratory wheeze in the lungs. Skin: There is a resolving urticarial rash on the volar aspect of both upper arms, chest, and groin region. Neurological: Normal. Course Vital Signs Vital signs: Vital Signs Temperature 36.6 C 10/20/24 11:27 Pulse 113 H 10/20/24 11:27 Respiratory Rate 18 10/20/24 11:27 Blood Pressure 143/61 H 10/20/24 11:27 Pulse Oximetry 97 10/20/24 11:27 Temperature 36.6 C 10/20/24 12:36 Temperature Source Oral 10/20/24 11:34 Pulse 103 H 10/20/24 12:36 Respiratory Rate 16 10/20/24 12:36 Respiratory Effort Normal, Non-Labored 10/20/24 11:35 Respiratory Depth Normal 10/20/24 11:35 Respiratory Pattern Normal 10/20/24 11:35 Blood Pressure 123/63 10/20/24 12:36 Blood Pressure Position Sitting 10/20/24 11:34 Pulse Oximetry 98 10/20/24 12:36 Oxygen Delivery Method Room Air 10/20/24 11:34 Oxygen Flow Rate 0 10/20/24 11:27 Pain Level 0 10/20/24 12:36 Medical Decision Making Initial Assessment: 39-year-old female with a history of asthma, presenting with symptoms following a recent influenza A diagnosis and subsequent medication reaction. Differential Diagnosis: - Medication reaction: Suspected due to rash development after starting Tamiflu. Plan to discontinue Tamiflu. - Viral exanthem: Considered as a potential cause of the rash. Plan to continue supportive care. ED Course: - Discontinued Tamiflu due to suspected medication reaction. - Provided Flovent inhaler for use during illness. - Encouraged use of Nicorette gum for smoking cessation. - Administered 1 mg of Ativan orally for anxiety. Final Assessment: Patient's symptoms are likely multifactorial, including a possible medication reaction or viral exanthem. Supportive care will be continued, and Tamiflu will not be resumed. A Flovent inhaler is provided for asthma management, and Nicorette gum is recommended for smoking cessation. Anxiety is managed with a dose of Ativan. Clinical Impression: - Influenza A - Anxiety - Asthma Disposition: - Discharge MDM Components Evaluation: - Number of Differential Diagnoses or Management Options: Medication reaction, Viral exanthem - Amount and Complexity of Data Reviewed: Patient history, physical examination - Risk of Complication and Morbidity or Mortality: Moderate risk due to underlying asthma and recent medication reaction. Quality:SDOH Health Related Social Needs: No Data to Display PFSH All Active Problems (Updated 10/20/24 @ 12:27 by WAQAS Wallace) Anxiety (Chronic) Influenza A (Acute) Medication overuse headache (Acute) Hypersomnia (Acute) Migraine headache without aura (Acute) Migraine headache with aura (Acute) Chronic headache (Acute) Papilledema (Acute) History of recurrent miscarriages (Acute) Hx 3 first trimester SABs, 1 placental previa at 20 weeks no surgery required. Ectopic with current partner. Patient reports no previous evaluation regarding SABs. Hx of spontaneous , not currently (Acute) Medical History History of ectopic 11/22/2019. Right sided ectopic. s/p right salpingectomy Pica in adults Depression Anxiety Insomnia Anorexia nervosa Celiac sprue Spinal stenosis in cervical region Alopecia Panic attack Asthma Chronic neck and back pain Folate deficiency Dry eye Astigmatism Tobacco abuse Surgical History S/P shoulder surgery S/P section S/P dilatation and curettage S/P appendectomy H/O laparoscopy 11/22/2019. Laparoscopic right salpingectomy. Social History Smoking/Tobacco Use Status: Current every day Tobacco Type: cigarettes Quit status: considering quitting Second Hand Exposure: Yes (Boyfriend Hermelindo smokes) Smoking risk assessment performed?: Yes Alcohol Intake: never Drug use: Occasionally Substance use type: marijuana Details: patient state she has not used any substances since when she started feeling sick Household members: significant other, children and other Details: Patient is . Partner Hermelindo x3 years. 9-year-old daughter Number of Children: 1 current occupation: [employer] What is your relationship status?: Panel score (0-1 are the most socially isolated patients): 0 Do you feel safe at home: Yes Do you feel safe in your relationship?: Yes Additional Social history: In past relationship history of 5 SABs. 3 SABs in first trimester, 1 SAB at 20 weeks secondary to placental previa per patient report. Ectopic with current partner. Female Reproductive History Menstrual Duration of menses: 3-5 days control method: none History History 6 Para 1 Hx # Term Pregnancies 1 Multiple births Hx # Pregnancies 0 Ectopic pregnancies 1 AB induced 0 Hx Number of Living Children 1 AB spontaneous 5
== END 2024-10-20 12:38 | disposition home or self-care (01) ==
PROVIDERS: Emergency Provider Physician Assistant; PCP Nurse Practitioner Primary Care
DX: J10.1 Influenza due to other identified influenza virus with other respiratory manifestations (principal); F41.9 Anxiety disorder, unspecified; R06.02 Shortness of breath; F17.210 Nicotine dependence, cigarettes, uncomplicated
CPT/HCPCS: 99283